=== PATIENT | male | born 1950 | race Caucasian/White ===

== ENCOUNTER 2017-05-31 20:15 | Inpatient (IN) | payer OTHER, MEDICARE ==
--- NOTE | 2017-05-31 20:44 | PDOC ---
Rapid Medical Evaluation Time Seen by Provider: 05/31/17 20:27 Medical Evaluation: Allergies Allergy/AdvReac Type Severity Reaction Status Date / Time clopidogrel [From Plavix] Allergy Verified 05/31/17 20:39 05/31/17 20:39 The patient presents with PMH of nephrectomy d/t tumor, diabetes, CVA, bypass who presents with a chief complaint of lethargy and not responding well today. Sugar measurement 48 at home; given candy and juice, went to 118. No complaints at this time. Denies fevers, chills, n/v/d. I have performed a brief in-person evaluation of this patient; Pertinent physical exam findings: ambulatory, in no respiratory distress. AAO x3. I have ordered the following: CBC, CMP, Trop, EKG, UA, UC The patient will proceed to the ED for further evaluation.
--- NOTE | 2017-05-31 21:17 | PDOC ---
History of Present Illness - General Chief Complaint: Blood Sugar Problem Stated Complaint: Sugar Problem Time Seen by Provider: 05/31/17 20:27 - History of Present Illness Initial Comments: 66 year old male with PMH of nephrectomy (for tumor removal complicated with LLL pleural effusion in 01/2017) , diabetes (on insulin and Repaglinide), CVA ( 2011), CABG (triple bypass early ) presenting with acute episode of objective hypoglycemia (measured by at 48) with lethargy and diaphoresis. When his gave him an orange he started to feel better and became ore responsive. Denies syncope, LOC, head trauma, or other symptoms. On our exam, he wanted to go home and felt completely better. Denies recent sick symptoms, fevers chills, nausea, vomiting, diarrhea, chest pain, or congestion. 05/31/17 21:17 Past History - Past Medical History Allergies/Adverse Reactions: Allergies Allergy/AdvReac Type Severity Reaction Status Date / Time clopidogrel [From Plavix] Allergy Verified 05/31/17 20:39 Home Medications: Ambulatory Orders Apixaban [Eliquis -] 2.5 mg PO BID 05/31/17 Atorvastatin Ca [Lipitor] 20 mg PO HS 05/31/17 Escitalopram Oxalate [Lexapro -] 20 mg PO DAILY 05/31/17 Furosemide [Lasix -] 40 mg PO BID 05/31/17 Gabapentin [Neurontin -] 100 mg PO Q8H 05/31/17 Insulin Glargine,Hum.rec.anlog [Basaglar Kwikpen U-100] 100 unit SQ HS 05/31/17 Lisinopril [Zestril] 2.5 mg PO DAILY 05/31/17 Metoprolol Tartrate [Lopressor -] 25 mg PO BID 05/31/17 Repaglinide [Prandin -] 1 mg PO TIDCM 05/31/17 Cardiac Disorders: Yes (sextupil bypass 2001) CVA: Yes (2011) COPD: No Diabetes: Yes Disorders: Yes (left kidney removed 01/2017) HTN: Yes Hypercholesterolemia: Yes - Surgical History Cardiac Surgery: Yes - Immunization History Immunization Up to Date: Yes - Suicide/Smoking/Psychosocial Hx Smoking History: Never smoked Have you smoked in the past 12 months: No Information on smoking cessation initiated: No Hx Alcohol Use: No Drug/Substance Use Hx: No Substance Use Type: None *Physical Exam - Vital Signs Last Vital Signs Temp Pulse Resp BP Pulse Ox 97.4 F L 67 18 125/71 98 05/31/17 20:38 05/31/17 20:38 05/31/17 20:38 05/31/17 20:38 05/31/17 20:38 ED Treatment Course - LABORATORY CBC & Chemistry Diagram: 05/31/17 21:17 05/31/17 21:17 - RADIOLOGY Radiology Studies Ordered: Category Date Time Status CHEST PA & LAT [RAD] Stat Radiology 05/31/17 21:10 Ordered Medical Decision Making - Medical Decision Making 66 malcolm old male on oral antihyperglcymic (sulfonylurea type of activity) and long acting insulin with recent left nephrectomy presenting with episode of symptomatic hypoglycemia to 48 that resolved with orange juice. Patient asymptomatic in our ED and wants to go home but given his sulfonylurea ingestion and new renal injury (creatinine 1.9 here) in the setting of new nehprectomy, this patient will need to be admitted for observation of glucose levels. Patient signed out to VICKIE Flores in stable condition. 05/31/17 23:19 *DC/Admit/Observation/Transfer Diagnosis at time of Disposition: MEL (acute kidney injury), Hypoglycemia - Discharge Dispostion Admit: Yes - Referrals Referrals: ON STAFF,NOT [Primary Care Provider] - - Patient Instructions - Post Discharge Activity
[2017-05-31 21:41] LABS: BASO % 0.2 % (0-2.0); EOS % 0.6 % (0-4.5); HEMATOCRIT 34.7 % (35.4-49); HEMOGLOBIN 11.5 GM/dL (11.7-16.9); MCH 26.8 pg (25.7-33.7); MCHC 33.1 g/dl (32.0-35.9); MEAN PLT VOLUME 7.5 fl (7.5-11.1); MONO % 5.2 % (3.8-10.2); PLATELET COUNT 242 K/MM3 (134-434); RBC 4.29 M/mm3 (4.00-5.60); WHITE BLOOD COUNT 10.7 K/mm3 (4.0-10.0)
--- NOTE | 2017-05-31 22:11 | PDOC ---
Attending Attestation - Resident Resident Name: AlyssaVeronica - ED Attending Attestation I have performed the following: I have examined & evaluated the patient, The case was reviewed & discussed with the resident, I agree w/resident's findings & plan, Exceptions are as noted - HPI HPI: 05/31/17 22:11 66-year-old male with history of left-sided nephrectomy undergoing a tumor workup, hypertension, diabetes on glargine and replaganide, stroke presents with hypoglycemia. The patient reports that he was usual state of health. The patient's sister was out of the house and went to contact the patient and noted that he was altered, lethargic and clammy. He denied chest pain shortness of breath at that time the sister obtain a fingerstick which noted a glucose of 48 and the patient was given orange with improvement of symptoms. Patient currently denies any symptoms other than feeling sluggish. Denies fevers, chills , cough, vomiting, diarrhea, dysuria. - Physicial Exam PE: 05/31/17 22:12 GENERAL: Awake, alert, and fully oriented, in no acute distress. HEAD: No signs of trauma EYES: PERRLA, EOMI, sclera anicteric, conjunctiva clear ENT: Auricles normal inspection, hearing grossly normal, nares patent NECK: Normal ROM, supple, no lymphadenopathy, JVD, or masses LUNGS: Breath sounds equal, clear to auscultation bilaterally. No wheezes, and no crackles HEART: Regular rate and rhythm, normal S1 and S2, no murmurs, rubs or gallops ABDOMEN: Soft, nontender, No guarding, no rebound. No masses EXTREMITIES: Normal range of motion, no edema. NEUROLOGICAL: Cranial nerves II through XII grossly intact. Normal speech SKIN: Warm, Dry, normal turgor, no rashes or lesions noted. - Medical Decision Making 05/31/17 22:13 Vital Signs Temp Pulse Resp BP Pulse Ox 97.4 F L 67 18 125/71 98 05/31/17 20:38 05/31/17 20:38 05/31/17 20:38 05/31/17 20:38 05/31/17 20:38 I suspect the symptoms are likely secondary to hypoglycemia. Given that the patient is on a long-acting glucose medication, we'll observe the patient. Though I have low suspicion for acute anginal equivalent, we'll send troponin and EKG. Alternate, the patient is at the hospital admitted given hypoglycemia
[2017-05-31 22:30] LABS: URINE APPEARANCE CLEAR; URINE BILIRUBIN NEGATIVE (<2.0 mg/dL); URINE BLOOD NEGATIVE (NEGATIVE); URINE COLOR LTYELLOW; URINE GLUCOSE (UA) NEGATIVE (NEGATIVE); URINE KETONE NEGATIVE (NEGATIVE); URINE LEUK ESTERASE NEGATIVE (NEGATIVE); URINE NITRITE NEGATIVE (NEGATIVE); URINE PROTEIN NEGATIVE (NEGATIVE); URINE UROBILINOGEN NEGATIVE mg/dL (0.2-1.0)
[2017-05-31 22:48] LABS: ALK PHOS 122 U/L (45-117); ANION GAP 7 (8-16); BILIRUBIN,TOTAL 0.2 mg/dL (0.2-1.0); BLOOD UREA NITROGEN 71 mg/dL (7-18); CHLORIDE 104 mmol/L (98-107); CO2 26 mmol/L (21-32); CREATININE 1.9 mg/dL (0.7-1.3); GLUCOSE,RANDOM 85 mg/dL (74-106); POTASSIUM 4.8 mmol/L (3.5-5.1); SGOT/AST 77 U/L (15-37); SGPT/ALT 105 U/L (12-78); SODIUM 137 mmol/L (136-145); TOT PROT 8.9 g/dl (6.4-8.2)
--- NOTE | 2017-05-31 23:54 | HP ---
CHIEF COMPLAINT: Hypoglycemia PCP: Doctor Not on Staff HISTORY OF PRESENT ILLNESS: This is a 66 y/o man with a past medical history of HTN, HLD, DM (glargine, replaganide), CVA (2011), CAD s/p Six vessel Bypass (O2), s/p L Nephrectomy (2016, tumor work-up). Who presents to the ED with a hypoglycemic episode FS 48. Patient reports not "feeling right", cold, clammy, lethargic. He reports that his sister checked his blood sugar- 48, he was given orange juice and crackers. The patient states" I took my meds in the morning and afternoon, but I don't check my sugar". Patient denies fever, cough, CEJA, SOB, CP, palpitations, AP, N/V /D, constipation, dysuria. ER course was notable for: (1) Serum Glucose 85 (2) Cr 1.9 (3) Recent Travel: None PAST MEDICAL HISTORY: See HPI PAST SURGICAL HISTORY: See HPI Social History: Smoking: Never Alcohol: Social Drugs: Denies Lives alone- employed Family History: Allergies clopidogrel [From Plavix] Allergy (Verified 05/31/17 20:39) HOME MEDICATIONS: Home Medications Medication Instructions Recorded Apixaban [Eliquis -] 2.5 mg PO BID 05/31/17 Atorvastatin Ca [Lipitor] 20 mg PO HS 05/31/17 Escitalopram Oxalate [Lexapro -] 20 mg PO DAILY 05/31/17 Furosemide [Lasix -] 40 mg PO BID 05/31/17 Gabapentin [Neurontin -] 100 mg PO Q8H 05/31/17 Insulin Glargine,Hum.rec.anlog 100 unit SQ HS 05/31/17 [Basaglar Kwikpen U-100] Lisinopril [Zestril] 2.5 mg PO DAILY 05/31/17 Metoprolol Tartrate [Lopressor -] 25 mg PO BID 05/31/17 Repaglinide [Prandin -] 1 mg PO TIDCM 05/31/17 REVIEW OF SYSTEMS CONSTITUTIONAL: chills, generalized weakness, malaise Absent: fever, diaphoresis, loss of appetite, weight change HEENT: Absent: rhinorrhea, nasal congestion, throat pain, throat swelling, difficulty swallowing, mouth swelling, ear pain, eye pain, visual changes CARDIOVASCULAR: lightheadedness Absent: chest pain, syncope, palpitations, irregular heart rate, peripheral edema RESPIRATORY: Absent: cough, shortness of breath, dyspnea with exertion, orthopnea, wheezing, stridor, hemoptysis GASTROINTESTINAL: vomiting Absent: abdominal pain, abdominal distension, nausea, diarrhea, constipation, melena, hematochezia GENITOURINARY: Absent: dysuria, frequency, urgency, hesitancy, hematuria, flank pain, genital pain MUSCULOSKELETAL: Absent: myalgia, arthralgia, joint swelling, back pain, neck pain SKIN: Absent: rash, itching, pallor HEMATOLOGIC/IMMUNOLOGIC: Absent: easy bleeding, easy bruising, lymphadenopathy, frequent infections ENDOCRINE: Absent: unexplained weight gain, unexplained weight loss, heat intolerance, cold intolerance NEUROLOGIC: dizziness, mental status changes Absent: headache, focal weakness or paresthesias, unsteady gait, seizure, bladder or bowel incontinence PSYCHIATRIC: Absent: anxiety, depression, suicidal or homicidal ideation, hallucinations. PHYSICAL EXAMINATION Vital Signs - 24 hr 05/31/17 20:38 Temperature 97.4 F L Pulse Rate 67 Respiratory 18 Rate Blood Pressure 125/71 O2 Sat by Pulse 98 Oximetry (%) GENERAL: Awake, alert, and oriented x2 with some confusion noted, in no acute distress. HEAD: Normal with no signs of trauma. EYES: Pupils equal, round and reactive to light, extraocular movements intact, sclera anicteric, conjunctiva clear. No lid lag. EARS, NOSE, THROAT: Dry mucous membranes. Ears normal, nares patent, oropharynx clear without exudates. NECK: Normal range of motion, supple without lymphadenopathy, JVD, or masses. LUNGS: Breath sounds equal, clear to auscultation bilaterally. No wheezes, and no crackles. No accessory muscle use. HEART: Regular rate and rhythm, normal S1 and S2 without murmur, rub or gallop. ABDOMEN: Obese, Soft, nontender, not distended, normoactive bowel sounds, no guarding, no rebound, no masses. No hepatomegaly or splenomegaly. MUSCULOSKELETAL: Normal range of motion at all joints. No bony deformities or tenderness. No CVA tenderness. UPPER EXTREMITIES: 2+ pulses, warm, well-perfused. No cyanosis. No clubbing. No peripheral edema. LOWER EXTREMITIES: 2+ pulses, warm, well-perfused. No calf tenderness. No peripheral edema. NEUROLOGICAL: Cranial nerves II-XII intact. Normal speech. Gait not observed. PSYCHIATRIC: Cooperative. Good eye contact. Appropriate mood and affect. SKIN: Warm, dry, normal turgor, no rashes or lesions noted, normal capillary refill. Laboratory Results - last 24 hr 05/31/17 05/31/17 05/31/17 21:17 21:17 21:17 WBC 10.7 H RBC 4.29 Hgb 11.5 L Hct 34.7 L MCV 81.0 MCH 26.8 MCHC 33.1 RDW 18.0 H Plt Count 242 MPV 7.5 Neutrophils % 82.0 Lymphocytes % 12.0 Monocytes % 5.2 Eosinophils % 0.6 Basophils % 0.2 Sodium 137 Potassium 4.8 Chloride 104 Carbon Dioxide 26 Anion Gap 7 L BUN 71 H Creatinine 1.9 H Creat Clearance w eGFR 35.76 Random Glucose 85 Calcium 9.0 Total Bilirubin 0.2 AST 77 H ALT 105 H Alkaline Phosphatase 122 H Creatine Kinase 73 Troponin I < 0.02 Total Protein 8.9 H Albumin 4.0 Urine Color Urine Appearance Urine pH Ur Specific Gardiner Urine Protein Urine Glucose (UA) Urine Ketones Urine Blood Urine Nitrite Urine Bilirubin Urine Urobilinogen Ur Leukocyte Esterase 05/31/17 22:20 WBC RBC Hgb Hct MCV MCH MCHC RDW Plt Count MPV Neutrophils % Lymphocytes % Monocytes % Eosinophils % Basophils % Sodium Potassium Chloride Carbon Dioxide Anion Gap BUN Creatinine Creat Clearance w eGFR Random Glucose Calcium Total Bilirubin AST ALT Alkaline Phosphatase Creatine Kinase Troponin I Total Protein Albumin Urine Color Ltyellow Urine Appearance Clear Urine pH 5.0 Ur Specific Gardiner 1.014 Urine Protein Negative Urine Glucose (UA) Negative Urine Ketones Negative Urine Blood Negative Urine Nitrite Negative Urine Bilirubin Negative Urine Urobilinogen Negative Ur Leukocyte Esterase Negative ASSESSMENT/PLAN: This is a 66 y/o man with DM, HTN, HLD, CAD (s/p Sextuple bypass), CVA, s/p L- Nephrectomy (no chemo,/RT, tumor workup). Placed on Observation for Hypoglycemia , MEL. Plan: 1. Hypoglycemia- Observation, BGMs Q4h, D5NS@42ml/hr, Repeat BMP in am, Hold home meds 2. MEL- Likely secondary to Dehydration vs Medication vs ATN, gentle IVF, renal US r/o obstruction, repeat BMP in am, consider Nephrology consult if condition worsens 3. HTN- Stable, monitor BP, Continue Lopressor with parameters, Hold Valsartan 2 /2 MEL 4. HLD- Stable, continue Atorvastatin, monitor LFTs 5. CAD- Stable, continue Lopressor 6. CVA- Stable, continue Eliquis, Fall Precautions 7. FEN- D5NS@42ml/hr, Replete lytes prn, Low Na, Diabetic Diet 8. DVT ppx- SCDs, Eliquis Code Status: Full Code Dispo: Observation Problem List - Problem (1) Hypoglycemia Code(s): E16.2 - HYPOGLYCEMIA, UNSPECIFIED (2) MEL (acute kidney injury) Code(s): N17.9 - ACUTE KIDNEY FAILURE, UNSPECIFIED (3) HTN (hypertension) Code(s): I10 - ESSENTIAL (PRIMARY) HYPERTENSION (4) CVA (cerebral vascular accident) Code(s): I63.9 - CEREBRAL INFARCTION, UNSPECIFIED (5) CAD (coronary artery disease) of bypass graft Code(s): I25.810 - ATHEROSCLEROSIS OF CABG W/O ANGINA PECTORIS (6) HLD (hyperlipidemia) Code(s): E78.5 - HYPERLIPIDEMIA, UNSPECIFIED (7) DVT prophylaxis Code(s): JNG1356 - Visit type - Emergency Visit Emergency Visit: Yes ED Registration Date: 05/31/17 Care time: The patient presented to the Emergency Department on the above date and was hospitalized for further evaluation of their emergent condition. - New Patient This patient is new to me today: Yes Date on this admission: 05/31/17 - Critical Care Critical Care patient: No Hospitalist Screening - Colonoscopy Questionnaire Colonoscopy Questionnaire: Colonoscopy Questionnaire - Patient: 50 - 75 years old and never had a screening colonoscopy: No History of colon or rectal polyps, or CA: No History of IBD, Crohn's disease or UC: No History of abdominal radiation therapy as a child: No - Relative: 1 with colon or rectal CA, or polyps at age 60 or younger: No Colon or rectal CA diagnosed at age 45 or younger: No Multiple relatives with colon or rectal CA: No - Outcome: Screening Result: Negative Screen
[2017-06-01] MEDS: APIXABAN 2.5 MG TABLET PO SCH ×3 (00:15→21:32)
[2017-06-01 03:25] VITALS: BMI 30.3
[2017-06-01 08:03] LABS: BASO % 0.8 % (0-2.0); EOS % 2.9 % (0-4.5); HEMATOCRIT 32.5 % (35.4-49); HEMOGLOBIN 10.6 GM/dL (11.7-16.9); LYMPH % 22.6 % (8-40); MCH 26.7 pg (25.7-33.7); MCHC 32.8 g/dl (32.0-35.9); MEAN CELL VOLUME 81.5 fl (80-96); MEAN PLT VOLUME 7.4 fl (7.5-11.1); MONO % 8.5 % (3.8-10.2); NEUT % 65.2 % (42.8-82.8); PLATELET COUNT 203 K/MM3 (134-434); RBC 3.99 M/mm3 (4.00-5.60); RDW 17.9 % (11.9-15.9); WHITE BLOOD COUNT 7.5 K/mm3 (4.0-10.0)
[2017-06-01 08:16] LABS: ANION GAP 9 (8-16); BLOOD UREA NITROGEN 67 mg/dL (7-18); CALCIUM 8.6 mg/dL (8.5-10.1); CHLORIDE 105 mmol/L (98-107); CO2 26 mmol/L (21-32); GLUCOSE,RANDOM 85 mg/dL (74-106); POTASSIUM 4.3 mmol/L (3.5-5.1); SODIUM 140 mmol/L (136-145)
[2017-06-01] MEDS ORDERED: DEXTROSE 5%-NORMAL SALINE 1,000 ML IV SCH (08:30)
[2017-06-01] MEDS ORDERED: ESCITALOPRAM OXALATE 10 MG TABLET (FP) ONE (11:18)
[2017-06-01] MEDS ORDERED: PT OWN MED DRAWER 7, Y5N ONE ×2 (11:20→19:49)
[2017-06-01] MEDS: METOPROLOL TARTRATE 25 MG TABLET (FP) PO SCH ×2 (11:23→21:32)
[2017-06-01] MEDS: ESCITALOPRAM OXALATE 20 MG TABLET (FP) PO SCH (11:23)
--- NOTE | 2017-06-01 16:05 | PN ---
Physical Exam: SUBJECTIVE: Patient seen and examined Patient is c/o having chest pain on and off for 3 months now. OBJECTIVE: Vital Signs Temperature 98.6 F 06/01/17 15:52 Pulse Rate 80 06/01/17 15:52 Respiratory Rate 19 06/01/17 15:52 Blood Pressure 130/72 06/01/17 15:52 O2 Sat by Pulse Oximetry (%) 100 06/01/17 03:07 GENERAL: The patient is awake, alert, and fully oriented, in no acute distress. HEAD: Normal with no signs of trauma. EYES: PERRL, extraocular movements intact, sclera anicteric, conjunctiva clear. ENT: Ears normal, oropharynx clear without exudates, moist mucous membranes. NECK: Trachea midline, full range of motion, supple. LUNGS: Breath sounds equal, clear to auscultation bilaterally, no wheezes, no crackles, no accessory muscle use. HEART: Regular rate and rhythm, S1, S2 without murmur, rub or gallop. ABDOMEN: Soft, nontender, nondistended, normoactive bowel sounds, no guarding, no rebound, no hepatosplenomegaly, no masses. EXTREMITIES: 2+ pulses, warm, well-perfused, no edema. NEUROLOGICAL: Cranial nerves II through XII grossly intact. Normal speech, gait not observed. PSYCH: Normal mood, normal affect. SKIN: Warm, dry, normal turgor, no rashes or lesions noted CBCD WBC 7.5 K/mm3 (4.0-10.0) 06/01/17 07:28 RBC 3.99 M/mm3 (4.00-5.60) L 06/01/17 07:28 Hgb 10.6 GM/dL (11.7-16.9) L 06/01/17 07:28 Hct 32.5 % (35.4-49) L 06/01/17 07:28 MCV 81.5 fl (80-96) 06/01/17 07:28 MCHC 32.8 g/dl (32.0-35.9) 06/01/17 07:28 RDW 17.9 % (11.9-15.9) H 06/01/17 07:28 Plt Count 203 K/MM3 (134-434) 06/01/17 07:28 MPV 7.4 fl (7.5-11.1) L 06/01/17 07:28 CMP Sodium 140 mmol/L (136-145) 06/01/17 07:28 Potassium 4.3 mmol/L (3.5-5.1) 06/01/17 07:28 Chloride 105 mmol/L (98-107) 06/01/17 07:28 Carbon Dioxide 26 mmol/L (21-32) 06/01/17 07:28 Anion Gap 9 (8-16) 06/01/17 07:28 BUN 67 mg/dL (7-18) H 06/01/17 07:28 Creatinine 2.0 mg/dL (0.7-1.3) H 06/01/17 07:28 Creat Clearance w eGFR 35.76 (>60) 05/31/17 21:17 Random Glucose 85 mg/dL (74-106) 06/01/17 07:28 Calcium 8.6 mg/dL (8.5-10.1) 06/01/17 07:28 Total Bilirubin 0.2 mg/dL (0.2-1.0) 05/31/17 21:17 AST 77 U/L (15-37) H 05/31/17 21:17 ALT 105 U/L (12-78) H 05/31/17 21:17 Alkaline Phosphatase 122 U/L (45-117) H 05/31/17 21:17 Total Protein 8.9 g/dl (6.4-8.2) H 05/31/17 21:17 Albumin 4.0 g/dl (3.4-5.0) 05/31/17 21:17 CARDIAC ENZYMES Creatine Kinase 73 IU/L (39-308) 05/31/17 21:17 Troponin I < 0.02 ng/ml (0.00-0.05) 06/01/17 07:28 Current Medications Generic Name Dose Route Start Last Admin Trade Name Freq PRN Reason Stop Dose Admin Apixaban 2.5 mg 06/01/17 00:00 06/01/17 11:22 Eliquis - PO 2.5 mg BID MARY Administration Atorvastatin Calcium 20 mg 06/01/17 22:00 Lipitor - PO HS [facility] Escitalopram Oxalate 20 mg 06/01/17 10:00 06/01/17 11:23 Lexapro - PO 20 mg DAILY MARY Administration Dextrose/Sodium Chloride 1,000 mls @ 42 mls/hr 06/01/17 08:30 06/01/17 11:06 D5-Ns - IV 42 mls/hr ASDIR MARY Administration Metoprolol Tartrate 25 mg 06/01/17 10:00 06/01/17 11:23 Lopressor - PO 25 mg BID MARY Administration Home Medications Medication Instructions Recorded Apixaban [Eliquis -] 2.5 mg PO BID 05/31/17 Atorvastatin Ca [Lipitor] 20 mg PO HS 05/31/17 Escitalopram Oxalate [Lexapro -] 20 mg PO DAILY 05/31/17 Furosemide [Lasix -] 40 mg PO BID 05/31/17 Gabapentin [Neurontin -] 100 mg PO Q8H 05/31/17 Insulin Glargine,Hum.rec.anlog 100 unit SQ HS 05/31/17 [Basaglar Kwikpen U-100] Lisinopril [Zestril] 2.5 mg PO DAILY 05/31/17 Metoprolol Tartrate [Lopressor -] 25 mg PO BID 05/31/17 Repaglinide [Prandin -] 1 mg PO TIDCM 05/31/17 A/P: This is a 66 y/o man with hx of DM, HTN, HLD, CAD (s/p Sextuple bypass), CVA, s/ p L- Nephrectomy (no chemo,/RT, tumor workup). presented with MEL and hypoglycemia . # Acute chest pain r/o ACs , consulted , ordered EKG, CE q6h x 2 sets, transferring patient to Tele. 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 will hold off on Lisinopril and Lasix for now, renal consult # HTN- on metoprolol continue, lasix and lisinopril on hold # CXR positive for loculation will repeat with right sided pleural effusion # HLD- continue Atorvastatin # CAD continue Lopressor # Hx of CVA on Eliquis continue # Diabetic Diet will start him on 10unit Levemir at night with sliding scale DVT ppx- SCDs, Eliquis Code Status: Full Code Tx to Tele to monitor since having cp on and off. HIS MDS: Dr.Ira العلي telegrapher agent [phone] () Dr.Satjit Jonas; Compensation Associate [phone] Dr.maria richmond Endocrine [phone] Dr.Kensley Smith ; oncologist [phone] Dr. sarah Schwartz nephrolgist in [facility] Visit type - Emergency Visit Emergency Visit: Yes ED Registration Date: 05/31/17 Care time: The patient presented to the Emergency Department on the above date and was hospitalized for further evaluation of their emergent condition. - New Patient This patient is new to me today: Yes Date on this admission: 06/01/17 - Critical Care Critical Care patient: No - Discharge Referral Referred to [facility] Med P.C.: No
[2017-06-01] MEDS ORDERED: INSULIN (NOVOLOG) ASPART 100 UNITS/ML 10ML VIAL ONE (16:26)
[2017-06-01] MEDS ORDERED: SODIUM CHLORIDE 0.45% 1,000 ML IV SCH (16:30)
[2017-06-01] MEDS: INSULIN SLIDING SCALE (NOVOLOG) 1 VIAL SQ SCH (16:33)
--- NOTE | 2017-06-01 17:34 | EKG ---
Test Reason : Blood Pressure : / mmHG Vent. Rate : 079 BPM Atrial Rate : 079 BPM P-R Int : 214 ms QRS Dur : 092 ms QT Int : 416 ms P-R-T Axes : 071 -61 063 degrees QTc Int : 477 ms SINUS RHYTHM WITH 1ST DEGREE A-V BLOCK LEFT ANTERIOR FASCICULAR BLOCK CANNOT RULE OUT INFERIOR INFARCT (MASKED BY FASCICULAR BLOCK?) , AGE UNDETERMINED ABNORMAL ECG WHEN COMPARED WITH ECG OF 31-MAY-2017 22:06, NO SIGNIFICANT CHANGE WAS FOUND Confirmed by MD HATTIE, WENDY ([id number]) on 06/01/2017 5:34:15 PM Referred By: Mitzi CRAMER Confirmed By:WENDY KUHN MD
--- NOTE | 2017-06-01 17:54 | EKG ---
Test Reason : Blood Pressure : / mmHG Vent. Rate : 066 BPM Atrial Rate : 066 BPM P-R Int : 200 ms QRS Dur : 092 ms QT Int : 468 ms P-R-T Axes : 067 -76 072 degrees QTc Int : 490 ms NORMAL SINUS RHYTHM LEFT ANTERIOR FASCICULAR BLOCK Possible inferior infarct PROLONGED QT ABNORMAL ECG NO PREVIOUS ECGS AVAILABLE Confirmed by MD HATTIE, WENDY ([id number]) on 06/01/2017 5:54:33 PM Referred By: Confirmed By:WENDY KUHN MD
[2017-06-01] MEDS: INSULIN DETEMIR 100 UNITS/ML MDV SQ SCH (21:32)
[2017-06-01] MEDS: ATORVASTATIN CA 20 MG TABLET (FP) PO SCH (21:32)
--- NOTE | 2017-06-01 21:35 | CONSULT ---
Consult Consult Specialty:: Nephrology Reason for Consultation:: CKD - History of Present Illness Chief Complaint: presented with hypoglycemia History of Present Illness: Pt is a 66 year old male with pmhx of CKD, nephrectomy, renal cancer, CVA in 2012, CABG, CAD, and DM who presented to the ER with and episode of hypoglycemia. I was called to evaluate him for elevated creatinine. He is a poor historian. He denies dysuria or hematuria. He says that he follows with an [facility] however has not seen a product safety head. He denies shortness of breath or palpitations. He denies fevers or chills. 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 Cardio/Vascular: Yes: HTN Renal/: Yes: Renal Inusuff Endocrine: Yes: Diabetes Mellitus - Past Surgical History Additional Surgical History: nephrectomy - Alcohol/Substance Use Hx Alcohol Use: No - Smoking History Smoking history: Never smoked Have you smoked in the past 12 months: No Home Medications - Allergies Allergies/Adverse Reactions: Allergies Allergy/AdvReac Type Severity Reaction Status Date / Time clopidogrel [From Plavix] Allergy Verified 05/31/17 20:39 - Home Medications Home Medications: Ambulatory Orders Apixaban [Eliquis -] 2.5 mg PO BID 05/31/17 Atorvastatin Ca [Lipitor] 20 mg PO HS 05/31/17 Escitalopram Oxalate [Lexapro -] 20 mg PO DAILY 05/31/17 Furosemide [Lasix -] 40 mg PO BID 05/31/17 Gabapentin [Neurontin -] 100 mg PO Q8H 05/31/17 Insulin Glargine,Hum.rec.anlog [Basaglar Kwikpen U-100] 100 unit SQ HS 05/31/17 Lisinopril [Zestril] 2.5 mg PO DAILY 05/31/17 Metoprolol Tartrate [Lopressor -] 25 mg PO BID 05/31/17 Repaglinide [Prandin -] 1 mg PO TIDCM 05/31/17 Family Disease History - Family Disease History Family History: Denies Review of Systems - Review of Systems Constitutional: reports: No Symptoms Eyes: reports: No Symptoms HENT: reports: No Symptoms Neck: reports: No Symptoms Cardiovascular: reports: No Symptoms Respiratory: reports: No Symptoms Gastrointestinal: reports: No Symptoms Genitourinary: reports: No Symptoms Musculoskeletal: reports: No Symptoms Integumentary: reports: No Symptoms Neurological: reports: No Symptoms Endocrine: reports: No Symptoms Hematology/Lymphatic: reports: No Symptoms Psychiatric: reports: No Symptoms Physical Exam Vital Signs: Vital Signs Temperature 98.6 F 06/01/17 15:52 Pulse Rate 82 06/01/17 16:09 Respiratory Rate 20 06/01/17 16:09 Blood Pressure 124/66 06/01/17 16:09 O2 Sat by Pulse Oximetry (%) 95 06/01/17 08:00 Constitutional: Yes: Calm Eyes: Yes: Conjunctiva Clear HENT: Yes: Atraumatic Neck: Yes: Supple Cardiovascular: Yes: S1, S2 Respiratory: Yes: CTA Bilaterally Gastrointestinal: Yes: Soft Renal/: Yes: WNL Musculoskeletal: Yes: WNL Edema: Yes Edema: LLE: Trace, RLE: Trace Integumentary: Yes: WNL Neurological: Yes: Oriented, Pre-Existing Deficit Labs: CBC, BMP 06/01/17 07:28 06/01/17 07:28 Laboratory Tests 05/31/17 05/31/17 05/31/17 21:17 21:17 22:20 WBC 10.7 H Hgb Plt Count 242 Sodium Potassium BUN Creatinine 1.9 H Urine Protein Negative Urine Blood Negative 06/01/17 06/01/17 07:28 07:28 WBC 7.5 Hgb 10.6 L Plt Count 203 Sodium 140 Potassium 4.3 BUN 67 H Creatinine 2.0 H Urine Protein Urine Blood Imaging - Results Chest X-ray: Report Reviewed Problem List - Problems (1) CKD (chronic kidney disease) Code(s): N18.9 - CHRONIC KIDNEY DISEASE, UNSPECIFIED (2) MEL (acute kidney injury) Code(s): N17.9 - ACUTE KIDNEY FAILURE, UNSPECIFIED (3) CAD (coronary artery disease) of bypass graft Code(s): I25.810 - ATHEROSCLEROSIS OF CABG W/O ANGINA PECTORIS (4) CVA (cerebral vascular accident) Code(s): I63.9 - CEREBRAL INFARCTION, UNSPECIFIED (5) DVT prophylaxis Code(s): [id number] - (6) HTN (hypertension) Code(s): I10 - ESSENTIAL (PRIMARY) HYPERTENSION Assessment/Plan Current Medications Generic Name Dose Route Start Last Admin Trade Name Freq PRN Reason Stop Dose Admin Apixaban 2.5 mg 06/01/17 00:00 06/01/17 21:32 Eliquis - PO 2.5 mg BID MARY Administration Atorvastatin Calcium 20 mg 06/01/17 22:00 06/01/17 21:32 Lipitor - PO 20 mg HS MARY Administration Escitalopram Oxalate 20 mg 06/01/17 10:00 06/01/17 11:23 Lexapro - PO 20 mg DAILY MARY Administration Sodium Chloride 1,000 mls @ 42 mls/hr 06/01/17 16:30 06/01/17 16:32 1/2 Normal Saline IV 06/02/17 16:19 42 mls/hr ASDIR MARY Administration Insulin Aspart 1 vial 06/01/17 16:30 06/01/17 16:33 Novolog Vial Sliding Scale - SQ 6 unit TIDAC MARY Administration Protocol Insulin Detemir 10 units 06/01/17 22:00 06/01/17 21:32 Levemir Vial SQ Not Given HS [facility] Metoprolol Tartrate 25 mg 06/01/17 10:00 06/01/17 21:32 Lopressor - PO 25 mg BID MARY Administration Impression 1. 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 MEL possibly from dehydration if branch office manager is elevated from baseline 3. DM 4. hypoglycemia 5. hx CVA 6. HLD Plan - follow up renal ultrasound - check urine lytes and branch office manager - repeat labs in am - obtain outpt records - monitor blood sugar Dr Zarate
[2017-06-02 02:55] LABS: URINE APPEARANCE CLEAR; URINE BILIRUBIN NEGATIVE (<2.0 mg/dL); URINE BLOOD NEGATIVE (NEGATIVE); URINE COLOR LTYELLOW; URINE GLUCOSE (UA) NEGATIVE (NEGATIVE); URINE KETONE NEGATIVE (NEGATIVE); URINE LEUK ESTERASE NEGATIVE (NEGATIVE); URINE NITRITE NEGATIVE (NEGATIVE); URINE PROTEIN NEGATIVE (NEGATIVE); URINE UROBILINOGEN NEGATIVE mg/dL (0.2-1.0)
[2017-06-02] MEDS: INSULIN SLIDING SCALE (NOVOLOG) 1 VIAL SQ SCH ×3 (06:07→19:12)
--- NOTE | 2017-06-02 07:06 | CON.CARD ---
Consult Consult Specialty:: cardiology Reason for Consultation:: Hx OK; recent chest discomfort - History of Present Illness History of Present Illness: Mr. Wang is a 66 yr old white man with PMH of nephrectomy ("kidney ablation"), ? renal tumor ("they are discussing chemoterapy with me"),, diabetes, CVA ( about 13 yrs ago; ?no residual defects), CAD (hx if "OK"-->6 coronary stents, followed by CABG 13 yrs ago at [facility]), sleep apnea (noncompliant to CPAP), obesity, sedentary lifestyle,who presents with a chief complaint of lethargy and not responding well today. Sugar measurement 48 at home; given candy and juice, went to 118. No complaints at this time. Denies fevers, chills, n/v/d. Pt states that, a few months ago, he bagan having a 4/10 central chest ache; it occurred twice on awakening, and lasted a few minutes. When he walks, he feels "deconditioned" (easily dyspneic; ?accompanying chest ache(). Former cigarettes (quit many years ago). Several glasses of wine daily for many years (quit a few months ago). 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: Yes: CVA Cardio/Vascular: Yes: HTN Pulmonary: No: Asthma, COPD Renal/: Yes: Renal Inusuff Psych: Yes: Anxiety Endocrine: Yes: Diabetes Mellitus - Past Surgical History Additional Surgical History: nephrectomy - Alcohol/Substance Use Hx Alcohol Use: No - Smoking History Smoking history: Never smoked Have you smoked in the past 12 months: No Home Medications - Allergies Allergies/Adverse Reactions: Allergies Allergy/AdvReac Type Severity Reaction Status Date / Time clopidogrel [From Plavix] Allergy Verified 05/31/17 20:39 - Home Medications Home Medications: Ambulatory Orders Apixaban [Eliquis -] 2.5 mg PO BID 05/31/17 Atorvastatin Ca [Lipitor] 20 mg PO HS 05/31/17 Escitalopram Oxalate [Lexapro -] 20 mg PO DAILY 05/31/17 Furosemide [Lasix -] 40 mg PO BID 05/31/17 Gabapentin [Neurontin -] 100 mg PO Q8H 05/31/17 Insulin Glargine,Hum.rec.anlog [Carla Cheema U-100] 100 unit SQ HS 05/31/17 Lisinopril [Zestril] 2.5 mg PO DAILY 05/31/17 Metoprolol Tartrate [Lopressor -] 25 mg PO BID 05/31/17 Repaglinide [Prandin -] 1 mg PO TIDCM 05/31/17 Review of Systems - Review of Systems Constitutional: reports: No Symptoms Eyes: reports: No Symptoms HENT: reports: No Symptoms Neck: reports: No Symptoms Cardiovascular: reports: Chest Pain, Shortness of Breath Respiratory: reports: SOB on Exertion Genitourinary: reports: Other (hx renal "ablation" and "tumor") Breasts: reports: No Symptoms Reported Musculoskeletal: reports: Muscle Weakness Integumentary: reports: No Symptoms Neurological: reports: No Symptoms Hematology/Lymphatic: reports: No Symptoms Psychiatric: reports: Altered Sleep Pattern (sleep apnea) - Risk Factors Known Risk Factors: Yes: Age, Diabetes Mellitus, Gender, Hypercholesterolemia, Hypertension, Physical Inactivity, Prior OK /Emb Stroke, Smoking (former), Other (sleep apnea) Vital Signs: Vital Signs Temperature 98.5 F 06/02/17 05:00 Pulse Rate 72 06/02/17 05:00 Respiratory Rate 18 06/02/17 05:00 Blood Pressure 103/62 06/02/17 05:00 O2 Sat by Pulse Oximetry (%) 94 L 06/01/17 21:00 Constitutional: Yes: Calm Eyes: Yes: WNL HENT: Yes: WNL Neck: Yes: WNL Respiratory: Yes: Regular Gastrointestinal: Yes: Soft, Abdomen, Obese Renal/: No: Anuria Cardiovascular: Yes: Bradycardia JVD: No Carotid Bruit: No PMI: Non-Displaced Heart Sounds: Yes: S1 (split) Murmur: Yes: Systolic Murmur, Grade 1 Musculoskeletal: Yes: Muscle Weakness Extremities: Yes: Cool Edema: No Peripheral Pulses WNL: Yes Integumentary: Yes: WNL Neurological: Yes: WNL Psychiatric: Yes: WNL - Other Data Labs, Other Data: CBC, BMP 06/01/17 07:28 Troponin, BNP 06/01/17 06/01/17 07:28 18:35 Troponin I < 0.02 < 0.02 Troponin, BNP 06/01/17 06/01/17 07:28 18:35 Troponin I < 0.02 < 0.02 Imaging - Results Chest X-ray: Image Reviewed (no acute pathology) EKG: Image Reviewed (NSR: 1st degree AVB; LAFB; ? old IW OK) Problem List - Problems (1) Diabetes Code(s): E11.9 - TYPE 2 DIABETES MELLITUS WITHOUT COMPLICATIONS (2) CAD (coronary artery disease) of bypass graft Assessment/Plan: Hx OK-->6 cor stents, followed by CABG about 13 yrs ago. Since then, he has never had a stress test or angiogram; he thought that CABG would fix the heart for life. He used to walk [address] [facility] to his [place] [facility] [place] [facility] most working days, and felt very well. However, he stopped this more than 5 yrs ago, and has been quite sedentary since. TNI serially. ECHO for LVEF, wall motion. Stress MIBI (treadmill as stress agent). F/u TSH, lipids. Code(s): I25.810 - ATHEROSCLEROSIS OF CABG W/O ANGINA PECTORIS (3) CKD (chronic kidney disease) Code(s): N18.9 - CHRONIC KIDNEY DISEASE, UNSPECIFIED (4) CVA (cerebral vascular accident) Code(s): I63.9 - CEREBRAL INFARCTION, UNSPECIFIED (5) HLD (hyperlipidemia) Assessment/Plan: on statin Code(s): E78.5 - HYPERLIPIDEMIA, UNSPECIFIED (6) HTN (hypertension) Assessment/Plan: hold metoprolol. Problematic giving ACEI or ARB (renal dysfunction). Code(s): I10 - ESSENTIAL (PRIMARY) HYPERTENSION (7) Hypoglycemia Code(s): E16.2 - HYPOGLYCEMIA, UNSPECIFIED
[2017-06-02 07:31] LABS: ALBUMIN 3.4 g/dl (3.4-5.0); ANION GAP 6 (8-16); BLOOD UREA NITROGEN 55 mg/dL (7-18); CALCIUM 8.5 mg/dL (8.5-10.1); CHLORIDE 108 mmol/L (98-107); CO2 23 mmol/L (21-32); CREATININE 1.8 mg/dL (0.7-1.3); GLUCOSE,RANDOM 109 mg/dL (74-106); POTASSIUM 4.6 mmol/L (3.5-5.1); SGOT/AST 48 U/L (15-37); SGPT/ALT 87 U/L (12-78); SODIUM 137 mmol/L (136-145)
[2017-06-02 07:33] LABS: ALK PHOS 102 U/L (45-117); BILIRUBIN,TOTAL 0.4 mg/dL (0.2-1.0); TOT PROT 7.7 g/dl (6.4-8.2)
[2017-06-02 08:09] LABS: URINE CREATININE 73.1 mg/dL (20-370)
--- NOTE | 2017-06-02 08:17 | PN ---
Progress Note, Physician Chief Complaint: Pt A&Ox3; no chest pain or dyapnea. History of Present Illness: Mr. Wang is a 66 yr old white man with PMH of ?nephrectomy ("kidney ablation") , ? renal tumor ("they are discussing chemoterapy with me"),, diabetes, CVA ( about 13 yrs ago; ?no residual defects; speaks slowly, at times repetitively), CAD (hx of "CO"in his 40s-->6 coronary stents, followed by CABG 13 yrs ago at [facility]), sleep apnea (noncompliant to CPAP), obesity, sedentary lifestyle, who presents with a chief complaint of lethargy and not responding well today. Sugar measurement 48 at home; given candy and juice, went to 118. No complaints at this time. Denies fevers, chills, n/v/d. Pt states that, a few months ago, he bagan having a 4/10 central chest ache; it occurred twice on awakening, and lasted a few minutes. When he walks, he feels "deconditioned" (easily dyspneic; ?accompanying chest ache). Former cigarettes (quit many years ago). Several glasses of wine daily for many years (quit a few months ago). Father:[place] in his 50s Mother [place] in her 60s. Pt has suffered from "melancholy" in the past; never had psych counseling or antidepressant meds. 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 - Current Medication List Current Medications: Active Medications Apixaban (Eliquis -) 2.5 mg PO BID [facility] Last Admin: 06/01/17 21:32 Dose: 2.5 mg Atorvastatin Calcium (Lipitor -) 20 mg PO HS [facility] Last Admin: 06/01/17 21:32 Dose: 20 mg Escitalopram Oxalate (Lexapro -) 20 mg PO DAILY [facility] Last Admin: 06/01/17 11:23 Dose: 20 mg Sodium Chloride (1/2 Normal Saline) 1,000 mls @ 42 mls/hr IV ASDIR [facility] Stop: 06/02/17 16:19 Last Admin: 06/01/17 16:32 Dose: 42 mls/hr Insulin Aspart (Novolog Vial Sliding Scale -) 1 vial SQ TIDAC [facility] PRN Reason: Protocol Last Admin: 06/02/17 06:07 Dose: Not Given Insulin Detemir (Levemir Vial) 10 units SQ HS [facility] Last Admin: 06/01/17 21:32 Dose: Not Given - Objective Vital Signs: Vital Signs Temperature 98.5 F 06/02/17 05:00 Pulse Rate 72 06/02/17 05:00 Respiratory Rate 18 06/02/17 05:00 Blood Pressure 103/62 06/02/17 05:00 O2 Sat by Pulse Oximetry (%) 94 L 06/01/17 21:00 Constitutional: Yes: Calm, Obese Eyes: Yes: WNL HENT: Yes: WNL Labs: CBC, BMP 06/01/17 07:28 06/02/17 06:30 Problem List - Problems (1) Diabetes Code(s): E11.9 - TYPE 2 DIABETES MELLITUS WITHOUT COMPLICATIONS (2) CAD (coronary artery disease) of bypass graft Assessment/Plan: Hx CO-->6 cor stents, followed by CABG about 13 yrs ago. Since then, he has never had a stress test or angiogram; he thought that CABG would fix the heart for life. He used to walk 4 miles from [facility] to his home in [place] most working days, and felt very well. However, he stopped this more than 5 yrs ago, and has been quite sedentary since. TNI serially (1st 0.02). ECHO for LVEF, wall motion. Stress MIBI (treadmill as stress agent). F/u TSH, lipids. Code(s): I25.810 - ATHEROSCLEROSIS OF CABG W/O ANGINA PECTORIS (3) CKD (chronic kidney disease) Assessment/Plan: workup with resaw carriage operator noted and appreciated. ACEI or ARBS problematic presently. Code(s): N18.9 - CHRONIC KIDNEY DISEASE, UNSPECIFIED (4) CVA (cerebral vascular accident) Assessment/Plan: ?hx CVA; slow, at times repetitive speech, though appropriate. F/u workup. Code(s): I63.9 - CEREBRAL INFARCTION, UNSPECIFIED (5) HLD (hyperlipidemia) Code(s): E78.5 - HYPERLIPIDEMIA, UNSPECIFIED (6) HTN (hypertension) Code(s): I10 - ESSENTIAL (PRIMARY) HYPERTENSION (7) Hypoglycemia Code(s): E16.2 - HYPOGLYCEMIA, UNSPECIFIED (8) Sleep apnea Code(s): G47.30 - SLEEP APNEA, UNSPECIFIED (9) Depression Code(s): F32.9 - MAJOR DEPRESSIVE DISORDER, SINGLE EPISODE, UNSPECIFIED (10) [place] cardiac risk >20% in next 10 years Assessment/Plan: For stress MIBI. Diet, exercise, weight loss discussed in detail. Code(s): Z91.89 - OT PERSONAL RISK FACTORS, NOT ELSEWHERE CLASSIFIED (11) Elevated LFTs Assessment/Plan: alcohol to excess for years; stopped a few months ago. renal dysfunction. CHF. F/u workup. Code(s): R79.89 - OTHER SPECIFIED ABNORMAL FINDINGS OF BLOOD CHEMISTRY (12) CHF (congestive heart failure) Assessment/Plan: Congestive changes on CXR. dyspnea on exertion; chest discomfort. F/u BNP; serial TNIs. ECHO Stress test. Code(s): I50.9 - HEART FAILURE, UNSPECIFIED
[2017-06-02 08:40] LABS: CHOLESTEROL 71 mg/dL (50-200); HDL CHOLESTEROL 28 mg/dL (40-60); LDL CHOLESTEROL (ONLY SJRH) 40 mg/dL (5-100); TRIGLYCERIDES 85 mg/dL (35-160)
[2017-06-02] MEDS: APIXABAN 2.5 MG TABLET PO SCH ×2 (09:24→21:58)
[2017-06-02] MEDS: ESCITALOPRAM OXALATE 20 MG TABLET (FP) PO SCH (09:24)
--- NOTE | 2017-06-02 16:23 | PN ---
<Massiel De - Last Filed: 06/02/17 16:24> Physical Exam: SUBJECTIVE: Patient seen and examined sitting up in bed; c/o of not sleeping for two days. Denies lightheadedness, CEJA, cp, palpitations, sob. Plan for stress test in am. OBJECTIVE: Vital Signs Period Temp Pulse Resp BP Sys/Arreguin Pulse Ox Last 24 Hr 98.5 F-98.9 F 72-86 18-20 103-134/62-84 94 GENERAL: The patient is obese, awake, alert, and fully oriented, in no acute distress. LUNGS: decreased Breath sounds equal, clear to auscultation bilaterally, no wheezes, no crackles, no accessory muscle use. HEART: Regular rate and rhythm, S1, S2 without murmur, rub or gallop. ABDOMEN: obese Soft, nontender, nondistended, normoactive bowel sounds, no guarding, no rebound, no hepatosplenomegaly, no masses. EXTREMITIES: 2+ pulses, warm, well-perfused, no edema. Laboratory Results - last 24 hr 06/01/17 06/01/17 06/02/17 18:35 21:28 01:30 Sodium Potassium Chloride Carbon Dioxide Anion Gap BUN Creatinine Creat Clearance w eGFR POC Glucometer 146 Random Glucose Calcium Total Bilirubin AST ALT Alkaline Phosphatase Creatine Kinase 56 Troponin I < 0.02 Total Protein Albumin Triglycerides Cholesterol Total LDL Cholesterol HDL Cholesterol TSH Urine Color Ltyellow Urine Appearance Clear Urine pH 6.0 Ur Specific [place] 1.013 Urine Protein Negative Urine Glucose (UA) Negative Urine Ketones Negative Urine Blood Negative Urine Nitrite Negative Urine Bilirubin Negative Urine Urobilinogen Negative Ur Leukocyte Esterase Negative Ur Random Sodium Ur Random Potassium Ur Random Chloride Urine Creatinine 06/02/17 06/02/17 06/02/17 01:30 05:14 06:30 Sodium 137 Potassium 4.6 Chloride 108 H Carbon Dioxide 23 Anion Gap 6 L BUN 55 H Creatinine 1.8 H Creat Clearance w eGFR 38.06 POC Glucometer 121 Random Glucose 109 H D Calcium 8.5 Total Bilirubin 0.4 D AST 48 H D ALT 87 H Alkaline Phosphatase 102 Creatine Kinase Troponin I Total Protein 7.7 Albumin 3.4 Triglycerides 85 Cholesterol 71 Total LDL Cholesterol 40 HDL Cholesterol 28 L TSH 2.10 Urine Color Urine Appearance Urine pH Ur Specific [place] Urine Protein Urine Glucose (UA) Urine Ketones Urine Blood Urine Nitrite Urine Bilirubin Urine Urobilinogen Ur Leukocyte Esterase Ur Random Sodium 72 Ur Random Potassium 21.5 Ur Random Chloride 65 Urine Creatinine 73.1 06/02/17 06/02/17 06:30 06:30 Sodium Potassium Chloride Carbon Dioxide Anion Gap BUN Creatinine Creat Clearance w eGFR POC Glucometer Random Glucose Calcium Total Bilirubin AST ALT Alkaline Phosphatase Creatine Kinase Troponin I Total Protein Albumin Triglycerides Cancelled Cholesterol Cancelled Total LDL Cholesterol Cancelled HDL Cholesterol Cancelled TSH Cancelled Urine Color Urine Appearance Urine pH Ur Specific [place] Urine Protein Urine Glucose (UA) Urine Ketones Urine Blood Urine Nitrite Urine Bilirubin Urine Urobilinogen Ur Leukocyte Esterase Ur Random Sodium Ur Random Potassium Ur Random Chloride Urine Creatinine Active Medications Generic Name Dose Route Start Last Admin Trade Name Freq PRN Reason Stop Dose Admin Apixaban 2.5 mg 06/01/17 00:00 06/02/17 09:24 Eliquis - PO 2.5 mg BID MARY Administration Atorvastatin Calcium 20 mg 06/01/17 22:00 06/01/17 21:32 Lipitor - PO 20 mg HS [facility] Administration Escitalopram Oxalate 20 mg 06/01/17 10:00 06/02/17 09:24 Lexapro - PO 20 mg DAILY MARY Administration Sodium Chloride 1,000 mls @ 42 mls/hr 06/01/17 16:30 06/01/17 16:32 1/2 Normal Saline IV 06/02/17 16:19 42 mls/hr ASDIR MARY Administration Insulin Aspart 1 vial 06/01/17 16:30 06/02/17 11:07 Novolog Vial Sliding Scale - SQ Not Given TIDAC [facility] Protocol Insulin Detemir 10 units 06/01/17 22:00 06/01/17 21:32 Levemir Vial SQ Not Given [facility] ASSESSMENT/PLAN: This is a 66 year old male with a history of DM, htn, hld, cad s/p 6stent bypass , cva, renal Ca? s/p RT, admitted for hypoglycemia and acute kidney injury. #MEL: improved -baseline unknown; Cr. 1.3 today from 2.0 yest -FeNa 1.3; intrinsic -renal US: left kidney altered echgen, possible 1.4cm left renal distrophic calcification vs non obstructing calculus, 2.7cm rt hypoech focus normal variant vs neoplasm; -MRI recommended by radiology; will discuss with renal -hold nephrotoxic agents -gentle fluid hydration -renal consulted #chest pain: r/o ACS -stress test in am -tele cardio consulted #hypoglycemia/DM: resolved -cont ss BGM #CXR with loculation ; f/u repeat #hx of CVA; cont eliquis #htn: cont metoprolol ; lasix and lisinopril on hold due to kidney injury DVT: eliquis Diet: npo after midnight for stress Visit type - Emergency Visit Emergency Visit: Yes ED Registration Date: 05/31/17 Care time: The patient presented to the Emergency Department on the above date and was hospitalized for further evaluation of their emergent condition. - New Patient This patient is new to me today: Yes Date on this admission: 06/02/17 - Critical Care Critical Care patient: No <Ashley Sahu - Last Filed: 06/02/17 19:44> Physical Exam: Agree with resident's note.
--- NOTE | 2017-06-02 17:25 | PN ---
Progress Note, Physician History of Present Illness: Pt seen and examined at bedside. He is awake and appears comfortable. He denies shortness of breath. He denies dysuria or hematuria. - Current Medication List Current Medications: Active Medications Apixaban (Eliquis -) 2.5 mg PO BID [facility] Last Admin: 06/02/17 09:24 Dose: 2.5 mg Atorvastatin Calcium (Lipitor -) 20 mg PO [facility] Last Admin: 06/01/17 21:32 Dose: 20 mg Escitalopram Oxalate (Lexapro -) 20 mg PO DAILY [facility] Last Admin: 06/02/17 09:24 Dose: 20 mg Insulin Aspart (Novolog Vial Sliding Scale -) 1 vial SQ TIDAC [facility] PRN Reason: Protocol Last Admin: 06/02/17 11:07 Dose: Not Given Insulin Detemir (Levemir Vial) 10 units SQ [facility] Last Admin: 06/01/17 21:32 Dose: Not Given - Objective Vital Signs: Vital Signs Temperature 98.7 F 06/02/17 09:26 Pulse Rate 86 06/02/17 09:26 Respiratory Rate 18 06/02/17 10:00 Blood Pressure 134/84 06/02/17 09:26 O2 Sat by Pulse Oximetry (%) 95 06/02/17 10:00 Constitutional: Yes: Calm Eyes: Yes: Conjunctiva Clear HENT: Yes: Atraumatic Neck: Yes: Supple Cardiovascular: Yes: S1, S2 Respiratory: Yes: CTA Bilaterally Gastrointestinal: Yes: Soft, Abdomen, Obese Genitourinary: Yes: WNL Musculoskeletal: Yes: WNL Edema: No Neurological: Yes: Confusion Psychiatric: Yes: Oriented Labs: CBC, BMP 06/01/17 07:28 06/02/17 06:30 Problem List - Problems (1) CKD (chronic kidney disease) Code(s): N18.9 - CHRONIC KIDNEY DISEASE, UNSPECIFIED (2) MEL (acute kidney injury) Code(s): N17.9 - ACUTE KIDNEY FAILURE, UNSPECIFIED (3) CAD (coronary artery disease) of bypass graft Code(s): I25.810 - ATHEROSCLEROSIS OF CABG W/O ANGINA PECTORIS (4) CVA (cerebral vascular accident) Code(s): I63.9 - CEREBRAL INFARCTION, UNSPECIFIED (5) DVT prophylaxis Code(s): [id number] - (6) HTN (hypertension) Code(s): I10 - ESSENTIAL (PRIMARY) HYPERTENSION Assessment/Plan Current Medications Generic Name Dose Route Start Last Admin Trade Name Lottie PRN Reason Stop Dose Admin Apixaban 2.5 mg 06/01/17 00:00 06/02/17 09:24 Eliquis - PO 2.5 mg BID MARY Administration Atorvastatin Calcium 20 mg 06/01/17 22:00 06/01/17 21:32 Lipitor - PO 20 mg HS MARY Administration Escitalopram Oxalate 20 mg 06/01/17 10:00 06/02/17 09:24 Lexapro - PO 20 mg DAILY MARY Administration Insulin Aspart 1 vial 06/01/17 16:30 06/02/17 11:07 Novolog Vial Sliding Scale - SQ Not Given TIDAC [facility] Protocol Insulin Detemir 10 units 06/01/17 22:00 06/01/17 21:32 Levemir Vial SQ Not Given HS MARY Impression 1. 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 MEL possibly from dehydration if environmental programs manager is elevated from baseline 3. DM 4. hypoglycemia 5. hx CVA 6. HLD Plan - pt did not have nephrectomy as both kidneys are visualized on ultrasound - ua neg for blood or protein - will need to check outpt labs to see what baseline environmental programs manager is - pt likely had a procedure done to the left kidney in the past - monitor blood sugar Dr Zarate
[2017-06-02] MEDS: INSULIN DETEMIR 100 UNITS/ML MDV SQ SCH (21:57)
[2017-06-02] MEDS: ATORVASTATIN CA 20 MG TABLET (FP) PO SCH (21:58)
[2017-06-03] MEDS ORDERED: MELATONIN 5 MG TABLETS PO ONE ×2 (02:21→20:15)
[2017-06-03] MEDS: INSULIN SLIDING SCALE (NOVOLOG) 1 VIAL SQ SCH ×3 (06:31→18:35)
[2017-06-03 08:00] LABS: CHLORIDE 109 mmol/L (98-107); POTASSIUM 4.4 mmol/L (3.5-5.1); SODIUM 138 mmol/L (136-145)
[2017-06-03 08:15] LABS: ANION GAP 6 (8-16); BLOOD UREA NITROGEN 43 mg/dL (7-18); CALCIUM 8.6 mg/dL (8.5-10.1); CO2 23 mmol/L (21-32); CREATININE 1.6 mg/dL (0.7-1.3); GLUCOSE,RANDOM 136 mg/dL (74-106)
[2017-06-03] MEDS ORDERED: APIXABAN 2.5 MG TABLET PO SCH (10:00)
[2017-06-03] MEDS ORDERED: REGADENOSON 0.4 MG/5 ML PRE-FILLED SYRINGE IVPUSH ONE ×2 (11:00→11:33)
[2017-06-03] MEDS: ESCITALOPRAM OXALATE 20 MG TABLET (FP) PO SCH (15:14)
--- NOTE | 2017-06-03 15:42 | PN ---
<Kevin Frausto - Last Filed: 06/03/17 15:42> Physical Exam: SUBJECTIVE: Patient seen and examined No acute events overnight. Patient awaiting stress test today OBJECTIVE: Vital Signs Period Temp Pulse Resp BP Sys/Arreguin Pulse Ox Last 24 Hr 97.4 F-98.4 F 81-100 18-22 128-148/47-89 94-95 GENERAL: The patient is obese, awake, alert, and fully oriented, in no acute distress. LUNGS: decreased Breath sounds equal, clear to auscultation bilaterally, no wheezes, no crackles, no accessory muscle use. HEART: Regular rate and rhythm, S1, S2 without murmur, rub or gallop. ABDOMEN: obese, Soft, nontender, nondistended, normoactive bowel sounds, no guarding, no rebound, no hepatosplenomegaly, no masses. EXTREMITIES: 2+ pulses, warm, well-perfused, no edema. Laboratory Results - last 24 hr 06/01/17 06/01/17 06/02/17 16:03 16:05 06:30 Sodium Potassium Chloride Carbon Dioxide Anion Gap BUN Creatinine POC Glucometer 263 270 Random Glucose Hemoglobin A1c % 7.6 H Calcium 06/02/17 06/02/17 06/02/17 16:54 16:58 21:38 Sodium Potassium Chloride Carbon Dioxide Anion Gap BUN Creatinine POC Glucometer 209 123 213 Random Glucose Hemoglobin A1c % Calcium 06/03/17 06/03/17 05:51 06:28 Sodium 138 Potassium 4.4 Chloride 109 H Carbon Dioxide 23 Anion Gap 6 L BUN 43 H D Creatinine 1.6 H POC Glucometer 146 Random Glucose 136 H D Hemoglobin A1c % Calcium 8.6 Active Medications Generic Name Dose Route Start Last Admin Trade Name Freq PRN Reason Stop Dose Admin Apixaban 2.5 mg 06/03/17 10:00 06/03/17 15:14 Eliquis - PO 2.5 mg BID MARY Administration Atorvastatin Calcium 20 mg 06/03/17 22:00 Lipitor - PO HS MARY Escitalopram Oxalate 20 mg 06/03/17 10:00 06/03/17 15:14 Lexapro - PO 20 mg DAILY MARY Administration Insulin Aspart 1 vial 06/03/17 07:00 06/03/17 12:00 Novolog Vial Sliding Scale - SQ Not Given TIDAC [facility] Protocol Insulin Detemir 10 units 06/03/17 22:00 Levemir Vial SQ HS [facility] ASSESSMENT/PLAN: This is a 66 year old male with a history of DM, htn, hld, cad s/p 6stent bypass , cva, renal Ca? s/p RT, admitted for hypoglycemia and acute kidney injury. #MEL: improved -baseline unknown, creatinine improving -renal US: left kidney altered echgen, possible 1.4cm left renal distrophic calcification vs non obstructing calculus, 2.7cm rt hypoech focus normal variant vs neoplasm; -hold nephrotoxic agents -gentle fluid hydration -renal consulted #chest pain: r/o ACS -stress test + for moderate reversible defect, will need cath -tele -Echo-trace AR, trace [place], LV normal fxn -cardio consulted #hypoglycemia/DM: resolved -cont ss BGM #hx of CVA; cont eliquis #htn: cont metoprolol ; lasix and lisinopril on hold due to kidney injury DVT: eliquis Dispo: will need transfer for cardiac cath Visit type - Emergency Visit Emergency Visit: Yes ED Registration Date: 05/31/17 Care time: The patient presented to the Emergency Department on the above date and was hospitalized for further evaluation of their emergent condition. - New Patient This patient is new to me today: Yes Date on this admission: 06/03/17 - Critical Care Critical Care patient: No <Ashley Sahu - Last Filed: 06/03/17 16:51> Physical Exam: Patient has a positive stress test, cardiology will arrange Transfer for cardiac cath. Vital Signs Temperature 98.4 F 06/03/17 14:00 Pulse Rate 88 06/03/17 14:00 Respiratory Rate 20 06/03/17 14:00 Blood Pressure 141/85 06/03/17 14:00 O2 Sat by Pulse Oximetry (%) 94 L 06/03/17 10:00 CBCD WBC 7.5 K/mm3 (4.0-10.0) 06/01/17 07:28 RBC 3.99 M/mm3 (4.00-5.60) L 06/01/17 07:28 Hgb 10.6 GM/dL (11.7-16.9) L 06/01/17 07:28 Hct 32.5 % (35.4-49) L 06/01/17 07:28 MCV 81.5 fl (80-96) 06/01/17 07:28 MCHC 32.8 g/dl (32.0-35.9) 06/01/17 07:28 RDW 17.9 % (11.9-15.9) H 06/01/17 07:28 Plt Count 203 K/MM3 (134-434) 06/01/17 07:28 MPV 7.4 fl (7.5-11.1) L 06/01/17 07:28 CMP Sodium 138 mmol/L (136-145) 06/03/17 05:51 Potassium 4.4 mmol/L (3.5-5.1) 06/03/17 05:51 Chloride 109 mmol/L (98-107) H 06/03/17 05:51 Carbon Dioxide 23 mmol/L (21-32) 06/03/17 05:51 Anion Gap 6 (8-16) L 06/03/17 05:51 BUN 43 mg/dL (7-18) H D 06/03/17 05:51 Creatinine 1.6 mg/dL (0.7-1.3) H 06/03/17 05:51 Creat Clearance w eGFR 38.06 (>60) 06/02/17 06:30 Random Glucose 136 mg/dL (74-106) H D 06/03/17 05:51 Calcium 8.6 mg/dL (8.5-10.1) 06/03/17 05:51 Total Bilirubin 0.4 mg/dL (0.2-1.0) D 06/02/17 06:30 AST 48 U/L (15-37) H D 06/02/17 06:30 ALT 87 U/L (12-78) H 06/02/17 06:30 Alkaline Phosphatase 102 U/L (45-117) 06/02/17 06:30 Total Protein 7.7 g/dl (6.4-8.2) 06/02/17 06:30 Albumin 3.4 g/dl (3.4-5.0) 06/02/17 06:30 CARDIAC ENZYMES Creatine Kinase 56 IU/L (39-308) 06/01/17 18:35 Troponin I < 0.02 ng/ml (0.00-0.05) 06/01/17 18:35 Current Medications Generic Name Dose Route Start Last Admin Trade Name Lottie PRN Reason Stop Dose Admin Aspirin 81 mg 06/03/17 16:45 Ecotrin - PO DAILY [facility] Atorvastatin Calcium 20 mg 06/03/17 22:00 Lipitor - PO HS [facility] Escitalopram Oxalate 20 mg 06/03/17 10:00 06/03/17 15:14 Lexapro - PO 20 mg DAILY [facility] Administration HEPARIN SOD,PORK IN 0.45% NACL 25,000 unit in 500 mls @ 16 mls/hr 06/04/17 07: 00 Heparin-1/2ns 25,000 Units/500 IVPB TITR [facility] Protocol 800 UNITS/HR Insulin Aspart 1 vial 06/03/17 07:00 06/03/17 12:00 Novolog Vial Sliding Scale - SQ Not Given TIDAC [facility] Protocol Insulin Detemir 10 units 06/03/17 22:00 Levemir Vial SQ HS [facility] Home Medications Medication Instructions Recorded Apixaban [Eliquis -] 2.5 mg PO BID 05/31/17 Atorvastatin Ca [Lipitor] 20 mg PO HS 05/31/17 Escitalopram Oxalate [Lexapro -] 20 mg PO DAILY 05/31/17 Furosemide [Lasix -] 40 mg PO BID 05/31/17 Gabapentin [Neurontin -] 100 mg PO Q8H 05/31/17 Insulin Glargine,Hum.rec.anlog 25 unit SQ HS 05/31/17 [Basaglar Kwikpen U-100] Lisinopril [Zestril] 2.5 mg PO DAILY 05/31/17 Metoprolol Tartrate [Lopressor -] 25 mg PO BID 05/31/17 Repaglinide [Prandin -] 1 mg PO TIDCM 05/31/17
--- NOTE | 2017-06-03 16:10 | PN ---
Progress Note, Physician History of Present Illness: Pt seen and examined at bedside. He is awake and alert. He denies shortness of breath. He was found to have a positive stress test. - Current Medication List Current Medications: Active Medications Apixaban (Eliquis -) 2.5 mg PO BID [facility] Last Admin: 06/03/17 15:14 Dose: 2.5 mg Atorvastatin Calcium (Lipitor -) 20 mg PO HS [facility] Escitalopram Oxalate (Lexapro -) 20 mg PO DAILY [facility] Last Admin: 06/03/17 15:14 Dose: 20 mg Insulin Aspart (Novolog Vial Sliding Scale -) 1 vial SQ TIDAC [facility] PRN Reason: Protocol Last Admin: 06/03/17 12:00 Dose: Not Given Insulin Detemir (Levemir Vial) 10 units SQ [facility] - Objective Vital Signs: Vital Signs Temperature 98.4 F 06/03/17 14:00 Pulse Rate 88 06/03/17 14:00 Respiratory Rate 20 06/03/17 14:00 Blood Pressure 141/85 06/03/17 14:00 O2 Sat by Pulse Oximetry (%) 94 L 06/03/17 10:00 Constitutional: Yes: Calm Eyes: Yes: Conjunctiva Clear Cardiovascular: Yes: S1, S2 Gastrointestinal: Yes: Soft Genitourinary: Yes: WNL Musculoskeletal: Yes: WNL Edema: Yes Edema: LLE: Trace, RLE: Trace Neurological: Yes: Confusion Psychiatric: Yes: Oriented Labs: CBC, BMP 06/01/17 07:28 06/03/17 05:51 Problem List - Problems (1) CKD (chronic kidney disease) Code(s): N18.9 - CHRONIC KIDNEY DISEASE, UNSPECIFIED (2) MEL (acute kidney injury) Code(s): N17.9 - ACUTE KIDNEY FAILURE, UNSPECIFIED (3) CAD (coronary artery disease) of bypass graft Code(s): I25.810 - ATHEROSCLEROSIS OF CABG W/O ANGINA PECTORIS (4) CVA (cerebral vascular accident) Code(s): I63.9 - CEREBRAL INFARCTION, UNSPECIFIED (5) DVT prophylaxis Code(s): ZKP1483 - (6) HTN (hypertension) Code(s): I10 - ESSENTIAL (PRIMARY) HYPERTENSION Assessment/Plan Current Medications Generic Name Dose Route Start Last Admin Trade Name Freq PRN Reason Stop Dose Admin Apixaban 2.5 mg 04/02/18 10:00 06/03/17 15:14 Eliquis - PO 2.5 mg BID MARY Administration Atorvastatin Calcium 20 mg 06/03/17 22:00 Lipitor - PO HS MARY Escitalopram Oxalate 20 mg 06/03/17 10:00 06/03/17 15:14 Lexapro - PO 20 mg DAILY MARY Administration Insulin Aspart 1 vial 06/03/17 07:00 06/03/17 12:00 Novolog Vial Sliding Scale - SQ Not Given TIDAC [facility] Protocol Insulin Detemir 10 units 06/03/17 22:00 Levemir Vial SQ HS MARY Impression 1. CKD with unclear baseline health communications specialist 2. MEL possibly from dehydration if health communications specialist is elevated from baseline 3. DM 4. hypoglycemia 5. hx CVA 6. HLD 7. positive stress test Plan - renal function is improved - cardiology follow up - cont with fluids to optimize renal function for any possible cardiac intervention - discussed with medical team, pt likely to be transferred - monitor blood sugar Dr Zarate
--- NOTE | 2017-06-03 16:40 | PN ---
Progress Note, Physician History of Present Illness: Mr. Wang is a 66 yr old white man with PMH of nephrectomy ("kidney ablation"), ? renal tumor ("they are discussing chemoterapy with me"),, diabetes, CVA ( about 13 yrs ago; ?no residual defects), CAD (hx if "RI"-->6 coronary stents, followed by CABG 13 yrs ago at [facility]), sleep apnea (noncompliant to CPAP), obesity, sedentary lifestyle,who presents with a chief complaint of lethargy and not responding well today. Sugar measurement 48 at home; given candy and juice, went to 118. No complaints at this time. Denies fevers, chills, n/v/d. Pt states that, a few months ago, he bagan having a 4/10 central chest ache; it occurred twice on awakening, and lasted a few minutes. When he walks, he feels "deconditioned" (easily dyspneic; ?accompanying chest ache(). Former cigarettes (quit many years ago). Several glasses of wine daily for many years (quit a few months ago). - History Source History Provided By: Patient, Medical Record Limitations to Obtaining History: No Limitations - Current Medication List Current Medications: Active Medications Apixaban (Eliquis -) 2.5 mg PO BID [facility] Last Admin: 06/03/17 15:14 Dose: 2.5 mg Atorvastatin Calcium (Lipitor -) 20 mg PO HS [facility] Escitalopram Oxalate (Lexapro -) 20 mg PO DAILY [facility] Last Admin: 06/03/17 15:14 Dose: 20 mg Insulin Aspart (Novolog Vial Sliding Scale -) 1 vial SQ TIDAC [facility] PRN Reason: Protocol Last Admin: 06/03/17 12:00 Dose: Not Given Insulin Detemir (Levemir Vial) 10 units SQ HS [facility] - Objective Vital Signs: Vital Signs Temperature 98.4 F 06/03/17 14:00 Pulse Rate 88 06/03/17 14:00 Respiratory Rate 20 06/03/17 14:00 Blood Pressure 141/85 06/03/17 14:00 O2 Sat by Pulse Oximetry (%) 94 L 06/03/17 10:00 Eyes: Yes: WNL, Conjunctiva Clear, EOM Intact HENT: Yes: WNL, Atraumatic, Normocephalic Neck: Yes: WNL, Supple, Trachea Midline Cardiovascular: Yes: WNL, Regular Rate and Rhythm Respiratory: Yes: WNL, Regular, CTA Bilaterally Gastrointestinal: Yes: WNL, Normal Bowel Sounds Genitourinary: Yes: WNL Musculoskeletal: Yes: WNL Extremities: Yes: WNL Edema: No Integumentary: Yes: WNL Neurological: Yes: WNL, Alert, Oriented ...Motor Strength: WNL Psychiatric: Yes: WNL Labs: CBC, BMP 06/01/17 07:28 06/03/17 05:51 Assessment/Plan - Problems (1) Diabetes Code(s): E11.9 - TYPE 2 DIABETES MELLITUS WITHOUT COMPLICATIONS (2) CAD (coronary artery disease) of bypass graft Assessment/Plan: Hx RI-->6 cor stents, followed by CABG about 13 yrs ago. Since then, he has never had a stress test or angiogram; he thought that CABG would fix the heart for life. He used to walk 4 miles from [facility] to his home in [place] most working days, and felt very well. However, he stopped this more than 5 yrs ago, and has been quite sedentary since. TNI serially (1st 0.02). ECHO for LVEF, wall motion. Stress MIBI (treadmill as stress agent). F/u TSH, lipids. Code(s): I25.810 - ATHEROSCLEROSIS OF CABG W/O ANGINA PECTORIS (3) CKD (chronic kidney disease) Assessment/Plan: workup with piercing mill operator noted and appreciated. ACEI or ARBS problematic presently. Code(s): N18.9 - CHRONIC KIDNEY DISEASE, UNSPECIFIED (4) CVA (cerebral vascular accident) Assessment/Plan: ?hx CVA; slow, at times repetitive speech, though appropriate. F/u workup. Code(s): I63.9 - CEREBRAL INFARCTION, UNSPECIFIED (5) HLD (hyperlipidemia) Code(s): E78.5 - HYPERLIPIDEMIA, UNSPECIFIED (6) HTN (hypertension) Code(s): I10 - ESSENTIAL (PRIMARY) HYPERTENSION (7) Hypoglycemia Code(s): E16.2 - HYPOGLYCEMIA, UNSPECIFIED (8) Sleep apnea Code(s): G47.30 - SLEEP APNEA, UNSPECIFIED (9) Depression Code(s): F32.9 - MAJOR DEPRESSIVE DISORDER, SINGLE EPISODE, UNSPECIFIED (10) [place] cardiac risk >20% in next 10 years Assessment/Plan: Diet, exercise, weight loss discussed in detail. Code(s): Z91.89 - OTH PERSONAL RISK FACTORS, NOT ELSEWHERE CLASSIFIED (11) Elevated LFTs Assessment/Plan: alcohol to excess for years; stopped a few months ago. renal dysfunction. CHF. F/u workup. Code(s): R79.89 - OTHER SPECIFIED ABNORMAL FINDINGS OF BLOOD CHEMISTRY (12) CHF (congestive heart failure) Assessment/Plan: Congestive changes on CXR. dyspnea on exertion; chest discomfort. F/u BNP; serial TNIs. ECHO Stress sunshine ef 43 % moderate anterior and inferior ischemia. will need a c. cth renalf/u to optimize renal fx will stop eliquis and start unfractionated heparin in am start asa 81 qd Code(s): I50.9 - HEART FAILURE, UNSPECIFIED
[2017-06-03] MEDS ORDERED: HEPARIN NA (PORCINE) 5,000 UNITS/ML 1ML VIAL IVPUSH PRN ×2 (16:45)
[2017-06-03] MEDS: ASPIRIN COATED 81 MG TABLET.EC PO SCH (18:19)
[2017-06-03] MEDS: ATORVASTATIN CA 20 MG TABLET (FP) PO SCH (22:12)
[2017-06-03] MEDS: INSULIN DETEMIR 100 UNITS/ML MDV SQ SCH (22:12)
[2017-06-04] MEDS: INSULIN SLIDING SCALE (NOVOLOG) 1 VIAL SQ SCH ×3 (06:43→16:19)
[2017-06-04] MEDS ORDERED: HEPARIN NA (PORCINE) 5,000 UNITS/ML 1ML VIAL IVPUSH PRN ×2 (07:00)
[2017-06-04 07:33] LABS: CHLORIDE 110 mmol/L (98-107); POTASSIUM 4.5 mmol/L (3.5-5.1); SODIUM 139 mmol/L (136-145)
[2017-06-04 07:48] LABS: ANION GAP 7 (8-16); BLOOD UREA NITROGEN 38 mg/dL (7-18); CO2 22 mmol/L (21-32); CREATININE 1.6 mg/dL (0.7-1.3); GLUCOSE,RANDOM 130 mg/dL (74-106)
--- NOTE | 2017-06-04 09:11 | PN ---
Physical Exam: SUBJECTIVE: Patient seen and examined No acute events overnight. Patient denies chest pain. Awaiting transfer for cardiac cath. OBJECTIVE: Vital Signs Period Temp Pulse Resp BP Sys/Arreguin Pulse Ox Last 24 Hr 97.4 F-98.5 F 74-92 20-22 116-142/47-85 94-94 GENERAL: The patient is obese, awake, alert, and fully oriented, in no acute distress. LUNGS: Decreased Breath sounds b/l, clear to auscultation bilaterally, no wheezes, no crackles, no accessory muscle use. HEART: Regular rate and rhythm, S1, S2 without murmur, rub or gallop. ABDOMEN: obese, Soft, nontender, nondistended, normoactive bowel sounds, no guarding, no rebound, no hepatosplenomegaly, no masses. EXTREMITIES: 2+ pulses, warm, well-perfused, no edema. Laboratory Results - last 24 hr 06/02/17 06/03/17 06/03/17 06:30 16:59 22:01 Sodium Potassium Chloride Carbon Dioxide Anion Gap BUN Creatinine POC Glucometer 154 195 Random Glucose Hemoglobin A1c % 7.6 H Calcium 06/04/17 06/04/17 06:25 06:26 Sodium 139 Potassium 4.5 Chloride 110 H Carbon Dioxide 22 Anion Gap 7 L BUN 38 H Creatinine 1.6 H POC Glucometer 136 Random Glucose 130 H Hemoglobin A1c % Calcium 9.0 Active Medications Generic Name Dose Route Start Last Admin Trade Name Freq PRN Reason Stop Dose Admin Aspirin 81 mg 06/03/17 16:45 06/03/17 18:19 Ecotrin - PO 81 mg DAILY MARY Administration Atorvastatin Calcium 20 mg 06/03/17 22:00 06/03/17 22:12 Lipitor - PO 20 mg HS MARY Administration Escitalopram Oxalate 20 mg 06/03/17 10:00 06/03/17 15:14 Lexapro - PO 20 mg DAILY MARY Administration Heparin Sodium (Porcine) 5,000 unit 06/04/17 07:00 Heparin - IVPUSH PRN PRN APPT (SECONDS) <40 Heparin Sodium (Porcine) 1,000 unit 06/04/17 07:00 Heparin - IVPUSH PRN PRN APPT (SECONDS) 40-49 HEPARIN SOD,PORK IN 0.45% NACL 25,000 unit in 500 mls @ 16 mls/hr 06/04/17 07: 00 Heparin-1/2ns 25,000 Units/500 IVPB TITR [facility] Protocol 800 UNITS/HR Insulin Aspart 1 vial 06/03/17 07:00 06/04/17 06:43 Novolog Vial Sliding Scale - SQ Not Given TIDAC [facility] Protocol Insulin Detemir 10 units 06/03/17 22:00 06/03/17 22:12 Levemir Vial SQ 10 units HS [facility] Administration ASSESSMENT/PLAN: This is a 66 year old male with a history of DM, htn, hld, cad s/p 6stent bypass , cva, renal Ca? s/p RT, admitted for hypoglycemia and acute kidney injury. #MEL: improving -baseline unknown, creatinine improving -renal US: left kidney altered echogen, possible 1.4cm left renal distrophic calcification vs non obstructing calculus, 2.7cm rt hypoech focus normal variant vs neoplasm; -hold nephrotoxic agents -renal consulted #chest pain: r/o ACS -stress test + for moderate reversible defect, will need cath. Pending transfer per cardiology -tele -Echo-trace AR, trace [place], LV normal fxn -cardio consulted #hypoglycemia/DM: resolved -cont ss BGM -levemir 10 sq hs #hx of CVA; cont eliquis #htn: cont metoprolol ; lasix and lisinopril on hold due to kidney injury DVT: eliquis Dispo: Pending transfer per cardiology Visit type - Emergency Visit Emergency Visit: Yes ED Registration Date: 05/31/17 Care time: The patient presented to the Emergency Department on the above date and was hospitalized for further evaluation of their emergent condition. - New Patient This patient is new to me today: No - Critical Care Critical Care patient: No
[2017-06-04] MEDS: HEPARIN SOD,PORK IN 0.45% NACL 25,000 UNIT/500 ML INFUS.BAG IVPB SCH (09:27)
[2017-06-04] MEDS: ESCITALOPRAM OXALATE 20 MG TABLET (FP) PO SCH (09:28)
[2017-06-04] MEDS: ASPIRIN COATED 81 MG TABLET.EC PO SCH (09:28)
--- NOTE | 2017-06-04 11:36 | PN ---
Teaching Attending Note Name of Resident: Kevin Fruasto ATTENDING PHYSICIAN STATEMENT I saw and evaluated the patient. I reviewed the resident's note and discussed the case with the resident. I agree with the resident's findings and plan as documented. SUBJECTIVE: Patient has no chest pain at this time. no shortness of breath, no nausea or vomiting. Feels better. OBJECTIVE: Vital Signs Temperature 98.2 F 06/04/17 10:00 Pulse Rate 75 06/04/17 10:00 Respiratory Rate 20 06/04/17 11:24 Blood Pressure 125/60 06/04/17 10:00 O2 Sat by Pulse Oximetry (%) 94 L 06/04/17 11:24 GENERAL: The patient is awake, alert, and fully oriented, in no acute distress. HEAD: Normal with no signs of trauma. EYES: PERRL, extraocular movements intact, sclera anicteric, conjunctiva clear. ENT: Ears normal, oropharynx clear without exudates, moist mucous membranes. NECK: Trachea midline, full range of motion, supple. LUNGS: Breath sounds equal, clear to auscultation bilaterally, no wheezes, no crackles, no accessory muscle use. HEART: Regular rate and rhythm, S1, S2 positive, with TRISTA 1/6 no rub or gallop. ABDOMEN: Soft, nontender, nondistended, normoactive bowel sounds, no guarding, no rebound, no hepatosplenomegaly, no masses. EXTREMITIES: 2+ pulses, warm, well-perfused, no edema. NEUROLOGICAL: Cranial nerves II through XII grossly intact. Normal speech, gait not observed. PSYCH: Normal mood, normal affect. SKIN: Warm, dry, normal turgor, no rashes or lesions noted CBCD WBC 7.5 K/mm3 (4.0-10.0) 06/01/17 07:28 RBC 3.99 M/mm3 (4.00-5.60) L 06/01/17 07:28 Hgb 10.6 GM/dL (11.7-16.9) L 06/01/17 07:28 Hct 32.5 % (35.4-49) L 06/01/17 07:28 MCV 81.5 fl (80-96) 06/01/17 07:28 MCHC 32.8 g/dl (32.0-35.9) 06/01/17 07:28 RDW 17.9 % (11.9-15.9) H 06/01/17 07:28 Plt Count 203 K/MM3 (134-434) 06/01/17 07:28 MPV 7.4 fl (7.5-11.1) L 06/01/17 07:28 CMP Sodium 139 mmol/L (136-145) 06/04/17 06:25 Potassium 4.5 mmol/L (3.5-5.1) 06/04/17 06:25 Chloride 110 mmol/L (98-107) H 06/04/17 06:25 Carbon Dioxide 22 mmol/L (21-32) 06/04/17 06:25 Anion Gap 7 (8-16) L 06/04/17 06:25 BUN 38 mg/dL (7-18) H 06/04/17 06:25 Creatinine 1.6 mg/dL (0.7-1.3) H 06/04/17 06:25 Creat Clearance w eGFR 38.06 (>60) 06/02/17 06:30 Random Glucose 130 mg/dL (74-106) H 06/04/17 06:25 Calcium 9.0 mg/dL (8.5-10.1) 06/04/17 06:25 Total Bilirubin 0.4 mg/dL (0.2-1.0) D 06/02/17 06:30 AST 48 U/L (15-37) H D 06/02/17 06:30 ALT 87 U/L (12-78) H 06/02/17 06:30 Alkaline Phosphatase 102 U/L (45-117) 06/02/17 06:30 Total Protein 7.7 g/dl (6.4-8.2) 06/02/17 06:30 Albumin 3.4 g/dl (3.4-5.0) 06/02/17 06:30 CARDIAC ENZYMES Creatine Kinase 56 IU/L (39-308) 06/01/17 18:35 Troponin I < 0.02 ng/ml (0.00-0.05) 06/01/17 18:35 Current Medications Generic Name Dose Route Start Last Admin Trade Name Freq PRN Reason Stop Dose Admin Aspirin 81 mg 06/03/17 16:45 06/04/17 09:28 Ecotrin - PO 81 mg DAILY MARY Administration Atorvastatin Calcium 20 mg 06/03/17 22:00 06/03/17 22:12 Lipitor - PO 20 mg HS MARY Administration Escitalopram Oxalate 20 mg 06/03/17 10:00 06/04/17 09:28 Lexapro - PO 20 mg DAILY [facility] Administration Heparin Sodium (Porcine) 5,000 unit 06/04/17 07:00 Heparin - IVPUSH PRN PRN APPT (SECONDS) <40 Heparin Sodium (Porcine) 1,000 unit 06/04/17 07:00 Heparin - IVPUSH PRN PRN APPT (SECONDS) 40-49 HEPARIN SOD,PORK IN 0.45% NACL 25,000 unit in 500 mls @ 16 mls/hr 06/04/17 07: 00 06/04/17 09:27 Heparin-1/2ns 25,000 Units/500 IVPB 800 units/hr TITR MARY 16 mls/hr Protocol Administration 800 UNITS/HR Insulin Aspart 1 vial 06/03/17 07:00 06/04/17 06:43 Novolog Vial Sliding Scale - SQ Not Given TIDAC [facility] Protocol Insulin Detemir 10 units 06/03/17 22:00 06/03/17 22:12 Levemir Vial SQ 10 units HS [facility] Administration Home Medications Medication Instructions Recorded Apixaban [Eliquis -] 2.5 mg PO BID 05/31/17 Atorvastatin Ca [Lipitor] 20 mg PO HS 05/31/17 Escitalopram Oxalate [Lexapro -] 20 mg PO DAILY 05/31/17 Furosemide [Lasix -] 40 mg PO BID 05/31/17 Gabapentin [Neurontin -] 100 mg PO Q8H 05/31/17 Insulin Glargine,Hum.rec.anlog 25 unit SQ HS 05/31/17 [Basaglar Kwikpen U-100] Lisinopril [Zestril] 2.5 mg PO DAILY 05/31/17 Metoprolol Tartrate [Lopressor -] 25 mg PO BID 05/31/17 Repaglinide [Prandin -] 1 mg PO TIDCM 05/31/17 ECHO: No LV dysfunction with EJF 69%, trace AR ASSESSMENT AND PLAN: This is a 66 y/o man with hx of DM, HTN, HLD, CAD (s/p Sextuple bypass), CVA, s/ p L- Nephrectomy (no chemo,/RT, tumor workup). presented with MEL and hypoglycemia . # Acute chest pain on and off, Troponins are negative, positive stress test test with hx of GABG 2001 with 6 vessel disease , no further w/u afterward. Stress Stress test positive for moderate intensity ischemia anterior, anterioapical and inferior and inferolateral ischemia. Patient needs cath. being arranged by lacquer pin press operator. stopped eliquis and placed on heparin drip. On AsA 81mg continue . # MEL-Unkown baseline, renal consult is following the patient ; patient is improving 1.9-->1.6 today , LAsix and Zestril is on hold. # HTN on metoprolol continue, lasix and lisinopril on hold # HLD- continue Atorvastatin # CAD continue Lopressor # Hx of CVA was on Eliquis now on Heparin # Diabetic Diet will start him on 10unit Levemir at night with sliding scale, Dc'd Prandin DVT ppx- SCDs,heparin, off Eliquis Code Status: Full Code Tx to Tele to monitor since having cp on and off. HIS MDS: Dr.Ira العلي design quality engineer [phone] () Dr.Satjit Jonas; Auto Dealer [phone] Dr.maria richmond Endocrine [phone] Dr.Kensley Smith ; oncologist [phone] Dr. sarah Schwartz nephrolgist in [facility] Patient is for Tx for Cath, patient preferes [facility]
--- NOTE | 2017-06-04 13:31 | PN ---
Progress Note, Physician History of Present Illness: Pt seen and examined at bedside. He is awake and appear comfortable. He denies shortness of breath. - Current Medication List Current Medications: Active Medications Aspirin (Ecotrin -) 81 mg PO DAILY [facility] Last Admin: 06/04/17 09:28 Dose: 81 mg Atorvastatin Calcium (Lipitor -) 20 mg PO HS [facility] Last Admin: 06/03/17 22:12 Dose: 20 mg Escitalopram Oxalate (Lexapro -) 20 mg PO DAILY [facility] Last Admin: 06/04/17 09:28 Dose: 20 mg Heparin Sodium (Porcine) (Heparin -) 5,000 unit IVPUSH PRN PRN PRN Reason: APPT (SECONDS) <40 Heparin Sodium (Porcine) (Heparin -) 1,000 unit IVPUSH PRN PRN PRN Reason: APPT (SECONDS) 40-49 HEPARIN SOD,PORK IN 0.45% NACL (Heparin-1/2ns 25,000 Units/500) 25,000 unit in 500 mls @ 16 mls/hr IVPB TITR [facility]; 800 UNITS/HR PRN Reason: Protocol Last Admin: 06/04/17 09:27 Dose: 800 units/hr, 16 mls/hr Insulin Aspart (Novolog Vial Sliding Scale -) 1 vial SQ TIDAC [facility] PRN Reason: Protocol Last Admin: 06/04/17 12:03 Dose: Not Given Insulin Detemir (Levemir Vial) 10 units SQ [facility] Last Admin: 06/03/17 22:12 Dose: 10 units Metoprolol Tartrate (Lopressor -) 25 mg PO BID [facility] - Objective Vital Signs: Vital Signs Temperature 98.2 F 06/04/17 10:00 Pulse Rate 75 06/04/17 10:00 Respiratory Rate 20 06/04/17 11:24 Blood Pressure 125/60 06/04/17 10:00 O2 Sat by Pulse Oximetry (%) 94 L 06/04/17 11:24 Constitutional: Yes: Calm Eyes: Yes: Conjunctiva Clear HENT: Yes: Atraumatic Neck: Yes: Supple Cardiovascular: Yes: S1, S2 Respiratory: Yes: CTA Bilaterally Gastrointestinal: Yes: Soft Genitourinary: Yes: WNL Musculoskeletal: Yes: WNL Edema: No Neurological: Yes: Oriented Psychiatric: Yes: Oriented Labs: CBC, BMP 06/01/17 07:28 06/04/17 06:25 Problem List - Problems (1) CKD (chronic kidney disease) Code(s): N18.9 - CHRONIC KIDNEY DISEASE, UNSPECIFIED (2) MEL (acute kidney injury) Code(s): N17.9 - ACUTE KIDNEY FAILURE, UNSPECIFIED (3) CAD (coronary artery disease) of bypass graft Code(s): I25.810 - ATHEROSCLEROSIS OF CABG W/O ANGINA PECTORIS (4) CVA (cerebral vascular accident) Code(s): I63.9 - CEREBRAL INFARCTION, UNSPECIFIED (5) DVT prophylaxis Code(s): MME1251 - (6) HTN (hypertension) Code(s): I10 - ESSENTIAL (PRIMARY) HYPERTENSION Assessment/Plan Current Medications Generic Name Dose Route Start Last Admin Trade Name Freq PRN Reason Stop Dose Admin Aspirin 81 mg 06/03/17 16:45 06/04/17 09:28 Ecotrin - PO 81 mg DAILY [facility] Administration Atorvastatin Calcium 20 mg 06/03/17 22:00 06/03/17 22:12 Lipitor - PO 20 mg HS [facility] Administration Escitalopram Oxalate 20 mg 06/03/17 10:00 06/04/17 09:28 Lexapro - PO 20 mg DAILY [facility] Administration Heparin Sodium (Porcine) 5,000 unit 06/04/17 07:00 Heparin - IVPUSH PRN PRN APPT (SECONDS) <40 Heparin Sodium (Porcine) 1,000 unit 06/04/17 07:00 Heparin - IVPUSH PRN PRN APPT (SECONDS) 40-49 HEPARIN SOD,PORK IN 0.45% NACL 25,000 unit in 500 mls @ 16 mls/hr 06/04/17 07: 00 06/04/17 09:27 Heparin-1/2ns 25,000 Units/500 IVPB 800 units/hr TITR [facility] 16 mls/hr Protocol Administration 800 UNITS/HR Insulin Aspart 1 vial 06/03/17 07:00 06/04/17 12:03 Novolog Vial Sliding Scale - SQ Not Given TIDAC [facility] Protocol Insulin Detemir 10 units 06/03/17 22:00 06/03/17 22:12 Levemir Vial SQ 10 units HS [facility] Administration Metoprolol Tartrate 25 mg 06/04/17 22:00 Lopressor - PO BID [facility] Impression 1. 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 MEL possibly from dehydration if network applications specialist is elevated from baseline 3. DM 4. hypoglycemia 5. hx CVA 6. HLD 7. positive stress test Plan - cont to monitor renal function - pt is at risk for JEROME, will need saline at 75 cc per hour for 12 hour before cath and mucomyst 600 mg po q 12 hr for 2 doses before and 2 doses after contrast - cardiology follow up - attempted to call his sister Alyssa [phone] however there was no answer - will follow - monitor blood sugar Dr Zarate
--- NOTE | 2017-06-04 13:56 | PN ---
Progress Note, Physician Chief Complaint: Pt A&Ox3; no chest pain or dyapnea; no palpitations or dizziness. History of Present Illness: Mr. Wang is a 66 yr old white man with PMH of ?nephrectomy ("kidney ablation") , ? renal tumor ("they are discussing chemoterapy with me"),, diabetes, CVA ( about 13 yrs ago; ?no residual defects; speaks slowly, at times repetitively), CAD (hx of "[place]"in his 40s-->6 coronary stents, followed by CABG [address] [facility]), sleep apnea (noncompliant to CPAP), obesity, sedentary lifestyle, who presents with a chief complaint of lethargy and not responding well today. Sugar measurement 48 at home; given candy and juice, went to 118. No complaints at this time. Denies fevers, chills, n/v/d. Pt states that, a few months ago, he bagan having a 4/10 central chest ache; it occurred twice on awakening, and lasted a few minutes. When he walks, he feels "deconditioned" (easily dyspneic; ?accompanying chest ache). Former cigarettes (quit many years ago). Several glasses of wine daily for many years (quit a few months ago). Father:[place] in his 50s Mother [place] in her 60s. Pt has suffered from "melancholy" in the past; never had psych counseling or antidepressant meds. 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 - Current Medication List Current Medications: Active Medications Aspirin (Ecotrin -) 81 mg PO DAILY [facility] Last Admin: 06/04/17 09:28 Dose: 81 mg Atorvastatin Calcium (Lipitor -) 20 mg PO HS [facility] Last Admin: 06/03/17 22:12 Dose: 20 mg Escitalopram Oxalate (Lexapro -) 20 mg PO DAILY [facility] Last Admin: 06/04/17 09:28 Dose: 20 mg Heparin Sodium (Porcine) (Heparin -) 5,000 unit IVPUSH PRN PRN PRN Reason: APPT (SECONDS) <40 Heparin Sodium (Porcine) (Heparin -) 1,000 unit IVPUSH PRN PRN PRN Reason: APPT (SECONDS) 40-49 HEPARIN SOD,PORK IN 0.45% NACL (Heparin-1/2ns 25,000 Units/500) 25,000 unit in 500 mls @ 16 mls/hr IVPB TITR [facility]; 800 UNITS/HR PRN Reason: Protocol Last Admin: 06/04/17 09:27 Dose: 800 units/hr, 16 mls/hr Insulin Aspart (Novolog Vial Sliding Scale -) 1 vial SQ TIDAC [facility] PRN Reason: Protocol Last Admin: 06/04/17 12:03 Dose: Not Given Insulin Detemir (Levemir Vial) 10 units SQ HS [facility] Last Admin: 06/03/17 22:12 Dose: 10 units Metoprolol Tartrate (Lopressor -) 25 mg PO BID [facility] - Objective Vital Signs: Vital Signs Temperature 98.2 F 06/04/17 10:00 Pulse Rate 75 06/04/17 10:00 Respiratory Rate 20 06/04/17 11:24 Blood Pressure 125/60 06/04/17 10:00 O2 Sat by Pulse Oximetry (%) 94 L 06/04/17 11:24 Labs: CBC, BMP 06/01/17 07:28 06/04/17 06:25 Problem List - Problems (1) Diabetes Code(s): E11.9 - TYPE 2 DIABETES MELLITUS WITHOUT COMPLICATIONS (2) CAD (coronary artery disease) of bypass graft Assessment/Plan: Hx [place]-->6 cor stents, followed by CABG about 13 yrs ago. Since then, he has never had a stress test or angiogram; he thought that CABG would fix the heart for life. He used to walk 4 [place] [facility] [place], and felt very well. However, he stopped this more than 5 yrs ago, and has been quite sedentary since. TNI serially (1st 0.02). ECHO: normal LVEF. Stress MIBI: (Lexiscan): moderate areas of moderately intense ischemia of the anterior, anteroapical, inferoapical, and interolateral underwood, with mildl reduced LVEF of 43%. Plans: Start ticagrelor 180 mg PO now, then 90 mg bid (pt had a rash years ago on clopidogrel, and was told not to take it anymore; discussed with Dr. Bo and samson here: ticagrelor is structurally distinct from clopidogrel, and may be safely started). TNI < 0.02 x 2 TSH 2.1 total cholesterol < 100 mg/dL. Code(s): I25.810 - ATHEROSCLEROSIS OF CABG W/O ANGINA PECTORIS (3) CKD (chronic kidney disease) Assessment/Plan: Improving cratinine clearance. Suggest gentle hydreation (if does not take PO, may start IV). Code(s): N18.9 - CHRONIC KIDNEY DISEASE, UNSPECIFIED (4) CVA (cerebral vascular accident) Assessment/Plan: CVA; slow, at times repetitive speech, though appropriate; pt's sister says "executive center" of brain was affected by CVA. F/u workup. Code(s): I63.9 - CEREBRAL INFARCTION, UNSPECIFIED (5) HLD (hyperlipidemia) Assessment/Plan: on statin Code(s): E78.5 - HYPERLIPIDEMIA, UNSPECIFIED (6) HTN (hypertension) Code(s): I10 - ESSENTIAL (PRIMARY) HYPERTENSION (7) Hypoglycemia Code(s): E16.2 - HYPOGLYCEMIA, UNSPECIFIED (8) Sleep apnea Assessment/Plan: sleep studies Code(s): G47.30 - SLEEP APNEA, UNSPECIFIED (9) Depression Code(s): F32.9 - MAJOR DEPRESSIVE DISORDER, SINGLE EPISODE, UNSPECIFIED (10) [place] cardiac risk >20% in next 10 years Assessment/Plan: Stress MIBI + For conronary angiogram. Discussed with both him and his sister. Diet, exercise, weight loss discussed in detail. Code(s): Z91.89 - OTH PERSONAL RISK FACTORS, NOT ELSEWHERE CLASSIFIED (11) Elevated LFTs Code(s): R79.89 - OTHER SPECIFIED ABNORMAL FINDINGS OF BLOOD CHEMISTRY (12) CHF (congestive heart failure) Assessment/Plan: Congestive changes on CXR. dyspnea on exertion; chest discomfort. F/u BNP; serial TNIs. ECHO: diastolic dysfunction; normal LVEF. Stress test: + / possible multi-territorial. Code(s): I50.9 - HEART FAILURE, UNSPECIFIED (13) Renal cancer Assessment/Plan: Per pt's sister, Alyssa, pt underwent left nephrectomy 01/[address] [facility]. A Pet scan reportedly showed malignancy extending into the IVC, though right kidney [id number] WNL; a repeat PET scan is planned fo 08/2017. Await records; as noted by Dr. Dang, ?outline of left kidney noted on US. Code(s): C64.9 - MALIGNANT NEOPLASM OF UNSP KIDNEY, EXCEPT RENAL PELVIS (14) Pulmonary embolism Assessment/Plan: Pt's sister says he is on apixaban for hx of CVA and PEs. Await full records. Code(s): I26.99 - OTHER PULMONARY EMBOLISM WITHOUT ACUTE COR PULMONALE
[2017-06-04] MEDS ORDERED: TICAGRELOR 90 MG TABLET PO SCH (15:15)
[2017-06-04] MEDS: ISOSORBIDE MONONITRATE 30 MG TAB.SR.24H (FP) PO SCH (20:42)
[2017-06-04] MEDS: METOPROLOL TARTRATE 25 MG TABLET (FP) PO SCH (21:49)
[2017-06-04] MEDS: ATORVASTATIN CA 20 MG TABLET (FP) PO SCH (21:49)
[2017-06-04] MEDS: INSULIN DETEMIR 100 UNITS/ML MDV SQ SCH (21:49)
[2017-06-05] MEDS ORDERED: PT OWN MED DRAWER 7, Y5N ONE ×2 (06:23→09:31)
[2017-06-05] MEDS: INSULIN SLIDING SCALE (NOVOLOG) 1 VIAL SQ SCH ×3 (06:26→16:37)
[2017-06-05] MEDS: HEPARIN SOD,PORK IN 0.45% NACL 25,000 UNIT/500 ML INFUS.BAG IVPB SCH (06:26)
[2017-06-05 07:38] LABS: HEMATOCRIT 29.7 % (35.4-49); MCH 26.9 pg (25.7-33.7); MCHC 33.8 g/dl (32.0-35.9); MEAN CELL VOLUME 79.6 fl (80-96); MEAN PLT VOLUME 7.3 fl (7.5-11.1); PLATELET COUNT 233 K/MM3 (134-434); RBC 3.73 M/mm3 (4.00-5.60); RDW 17.6 % (11.9-15.9); WHITE BLOOD COUNT 6.6 K/mm3 (4.0-10.0)
[2017-06-05 08:44] LABS: ANION GAP 6 (8-16); BLOOD UREA NITROGEN 35 mg/dL (7-18); CALCIUM 8.7 mg/dL (8.5-10.1); CHLORIDE 109 mmol/L (98-107); CO2 23 mmol/L (21-32); GLUCOSE,RANDOM 150 mg/dL (74-106); POTASSIUM 4.6 mmol/L (3.5-5.1); SODIUM 138 mmol/L (136-145)
[2017-06-05 08:46] LABS: CREATININE 1.5 mg/dL (0.7-1.3)
[2017-06-05] MEDS: ESCITALOPRAM OXALATE 20 MG TABLET (FP) PO SCH (09:39)
[2017-06-05] MEDS: METOPROLOL TARTRATE 25 MG TABLET (FP) PO SCH (09:39)
[2017-06-05] MEDS: ASPIRIN COATED 81 MG TABLET.EC PO SCH (09:39)
[2017-06-05] MEDS: ISOSORBIDE MONONITRATE 30 MG TAB.SR.24H (FP) PO SCH (09:39)
[2017-06-05] MEDS ORDERED: TICAGRELOR 90 MG TABLET PO SCH (10:00)
--- NOTE | 2017-06-05 11:44 | PN ---
Progress Note, Physician History of Present Illness: Mr. Wang is a 66 yr old white man with PMH of nephrectomy ("kidney ablation"), ? renal tumor ("they are discussing chemoterapy with me"),, diabetes, CVA ( about 13 yrs ago; ?no residual defects), CAD (hx if "[place]"-->6 coronary stents, followed by CABG 13 yrs ago at [facility]), sleep apnea (noncompliant to CPAP), obesity, sedentary lifestyle,who presents with a chief complaint of lethargy and not responding well today. Sugar measurement 48 at home; given candy and juice, went to 118. No complaints at this time. Denies fevers, chills, n/v/d. Pt states that, a few months ago, he bagan having a 4/10 central chest ache; it occurred twice on awakening, and lasted a few minutes. When he walks, he feels "deconditioned" (easily dyspneic; ?accompanying chest ache(). Former cigarettes (quit many years ago). Several glasses of wine daily for many years (quit a few months ago). - History Source History Provided By: Patient, Medical Record Limitations to Obtaining History: No Limitations - Current Medication List Current Medications: Active Medications Aspirin (Ecotrin -) 81 mg PO DAILY [facility] Last Admin: 06/05/17 09:39 Dose: 81 mg Atorvastatin Calcium (Lipitor -) 20 mg PO HS [facility] Last Admin: 06/04/17 21:49 Dose: 20 mg Escitalopram Oxalate (Lexapro -) 20 mg PO DAILY [facility] Last Admin: 06/05/17 09:39 Dose: 20 mg Heparin Sodium (Porcine) (Heparin -) 5,000 unit IVPUSH PRN PRN PRN Reason: APPT (SECONDS) <40 Last Admin: 06/04/17 22:10 Dose: 5,000 unit Heparin Sodium (Porcine) (Heparin -) 1,000 unit IVPUSH PRN PRN PRN Reason: APPT (SECONDS) 40-49 HEPARIN SOD,PORK IN 0.45% NACL (Heparin-1/2ns 25,000 Units/500) 25,000 unit in 500 mls @ 16 mls/hr IVPB TITR [facility]; 800 UNITS/HR PRN Reason: Protocol Last Admin: 06/05/17 06:26 Dose: 950 units/hr, 19 mls/hr Insulin Aspart (Novolog Vial Sliding Scale -) 1 vial SQ TIDAC [facility] PRN Reason: Protocol Last Admin: 06/05/17 06:26 Dose: Not Given Insulin Detemir (Levemir Vial) 10 units SQ HS [facility] Last Admin: 06/04/17 21:49 Dose: 10 units Isosorbide Mononitrate (Imdur -) 30 mg PO DAILY [facility] Last Admin: 06/05/17 09:39 Dose: 30 mg Metoprolol Tartrate (Lopressor -) 25 mg PO BID [facility] Last Admin: 06/05/17 09:39 Dose: 25 mg Ticagrelor (Brilinta -) 90 mg PO BID [facility] Last Admin: 06/05/17 09:39 Dose: 90 mg - Objective Vital Signs: Vital Signs Temperature 98.6 F 06/05/17 05:00 Pulse Rate 75 06/05/17 05:00 Respiratory Rate 18 06/05/17 05:00 Blood Pressure 109/57 06/05/17 05:00 O2 Sat by Pulse Oximetry (%) 95 06/05/17 04:00 Eyes: Yes: WNL, Conjunctiva Clear, EOM Intact HENT: Yes: WNL, Atraumatic, Normocephalic Neck: Yes: WNL, Supple, Trachea Midline Cardiovascular: Yes: WNL, Regular Rate and Rhythm Respiratory: Yes: WNL, Regular, CTA Bilaterally Gastrointestinal: Yes: WNL, Normal Bowel Sounds Genitourinary: Yes: WNL Musculoskeletal: Yes: WNL Extremities: Yes: WNL Edema: No Integumentary: Yes: WNL Neurological: Yes: WNL, Alert, Oriented ...Motor Strength: WNL Psychiatric: Yes: WNL Labs: CBC, BMP 06/05/17 07:04 06/05/17 07:04 Assessment/Plan - Problems (1) Diabetes Code(s): E11.9 - TYPE 2 DIABETES MELLITUS WITHOUT COMPLICATIONS (2) CAD (coronary artery disease) of bypass graft Assessment/Plan: Hx [place]-->6 cor stents, followed by CABG about 13 yrs ago. Since then, he has never had a stress test or angiogram; he thought that CABG would fix the heart for life. He used to walk [address] miles from [facility] to his home in [place] [facility] most working days, and felt very well. However, he stopped this more than 5 yrs ago, and has been quite sedentary since. TNI serially (1st 0.02). ECHO: normal LVEF. Stress MIBI: (Lexiscan): moderate areas of moderately intense ischemia of the anterior, anteroapical, inferoapical, and interolateral underwood, with mildl reduced LVEF of 43%. Plans: Start ticagrelor 180 mg PO now, then 90 mg bid (pt had a rash years ago on clopidogrel, and was told not to take it anymore; discussed with Dr. Bo and samson here: ticagrelor is structurally distinct from clopidogrel, and may be safely started). TNI < 0.02 x 2 TSH 2.1 total cholesterol < 100 mg/dL. Code(s): I25.810 - ATHEROSCLEROSIS OF CABG W/O ANGINA PECTORIS (3) CKD (chronic kidney disease) Assessment/Plan: Improving cratinine clearance. Suggest gentle hydreation (if does not take PO, may start IV). Code(s): N18.9 - CHRONIC KIDNEY DISEASE, UNSPECIFIED (4) CVA (cerebral vascular accident) Assessment/Plan: CVA; slow, at times repetitive speech, though appropriate; pt's sister says "executive center" of brain was affected by CVA. F/u workup. Code(s): I63.9 - CEREBRAL INFARCTION, UNSPECIFIED (5) HLD (hyperlipidemia) Assessment/Plan: on statin Code(s): E78.5 - HYPERLIPIDEMIA, UNSPECIFIED (6) HTN (hypertension) Code(s): I10 - ESSENTIAL (PRIMARY) HYPERTENSION (7) Hypoglycemia Code(s): E16.2 - HYPOGLYCEMIA, UNSPECIFIED (8) Sleep apnea Assessment/Plan: sleep studies Code(s): G47.30 - SLEEP APNEA, UNSPECIFIED (9) Depression Code(s): F32.9 - MAJOR DEPRESSIVE DISORDER, SINGLE EPISODE, UNSPECIFIED (10) [place] cardiac risk >20% in next 10 years Assessment/Plan: Stress MIBI + For conronary angiogram. Discussed with both him and his sister. Diet, exercise, weight loss discussed in detail. Code(s): Z91.89 - OTH PERSONAL RISK FACTORS, NOT ELSEWHERE CLASSIFIED (11) Elevated LFTs Code(s): R79.89 - OTHER SPECIFIED ABNORMAL FINDINGS OF BLOOD CHEMISTRY (12) CHF (congestive heart failure) Assessment/Plan: Congestive changes on CXR. dyspnea on exertion; chest discomfort. F/u BNP; serial TNIs. ECHO: diastolic dysfunction; normal LVEF. Stress test: + / possible multi-territorial. Code(s): I50.9 - HEART FAILURE, UNSPECIFIED (13) Renal cancer Assessment/Plan: Per pt's sister, Alyssa, pt underwent left nephrectomy 01/2017 at [facility]. A Pet scan reportedly showed malignancy extending into the IVC, though right kidney [id number] WNL; a repeat PET scan is planned fo 08/2017. Await records; as noted by Dr. Dang, ?outline of left kidney noted on US. Code(s): C64.9 - MALIGNANT NEOPLASM OF UNSP KIDNEY, EXCEPT RENAL PELVIS (14) Pulmonary embolism Assessment/Plan: Pt's sister says he is on apixaban for hx of CVA and PEs. Await full records. Code(s): I26.99 - OTHER PULMONARY EMBOLISM WITHOUT ACUTE COR PULMONALE
--- NOTE | 2017-06-05 12:38 | PN ---
Progress Note, Physician History of Present Illness: Pt seen and examined at bedside. He is awake and alert. He denies shortness of breath. - Current Medication List Current Medications: Active Medications Aspirin (Ecotrin -) 81 mg PO DAILY [facility] Last Admin: 06/05/17 09:39 Dose: 81 mg Atorvastatin Calcium (Lipitor -) 20 mg PO HS [facility] Last Admin: 06/04/17 21:49 Dose: 20 mg Escitalopram Oxalate (Lexapro -) 20 mg PO DAILY [facility] Last Admin: 06/05/17 09:39 Dose: 20 mg Heparin Sodium (Porcine) (Heparin -) 5,000 unit IVPUSH PRN PRN PRN Reason: APPT (SECONDS) <40 Last Admin: 06/04/17 22:10 Dose: 5,000 unit Heparin Sodium (Porcine) (Heparin -) 1,000 unit IVPUSH PRN PRN PRN Reason: APPT (SECONDS) 40-49 HEPARIN SOD,PORK IN 0.45% NACL (Heparin-1/2ns 25,000 Units/500) 25,000 unit in 500 mls @ 16 mls/hr IVPB TITR [facility]; 800 UNITS/HR PRN Reason: Protocol Last Admin: 06/05/17 06:26 Dose: 950 units/hr, 19 mls/hr Insulin Aspart (Novolog Vial Sliding Scale -) 1 vial SQ TIDAC [facility] PRN Reason: Protocol Last Admin: 06/05/17 06:26 Dose: Not Given Insulin Detemir (Levemir Vial) 10 units SQ HS [facility] Last Admin: 06/04/17 21:49 Dose: 10 units Isosorbide Mononitrate (Imdur -) 30 mg PO DAILY [facility] Last Admin: 06/05/17 09:39 Dose: 30 mg Metoprolol Tartrate (Lopressor -) 25 mg PO BID [facility] Last Admin: 06/05/17 09:39 Dose: 25 mg Ticagrelor (Brilinta -) 90 mg PO BID [facility] Last Admin: 06/05/17 09:39 Dose: 90 mg - Objective Vital Signs: Vital Signs Temperature 98.6 F 06/05/17 05:00 Pulse Rate 75 06/05/17 05:00 Respiratory Rate 18 06/05/17 05:00 Blood Pressure 109/57 06/05/17 05:00 O2 Sat by Pulse Oximetry (%) 95 06/05/17 04:00 Constitutional: Yes: Calm Eyes: Yes: Conjunctiva Clear HENT: Yes: Atraumatic Neck: Yes: Supple Cardiovascular: Yes: S1, S2 Respiratory: Yes: CTA Bilaterally Gastrointestinal: Yes: Soft Genitourinary: Yes: WNL Musculoskeletal: Yes: WNL Edema: No Neurological: Yes: Oriented Psychiatric: Yes: Oriented Labs: CBC, BMP 06/05/17 07:04 06/05/17 07:04 Problem List - Problems (1) CKD (chronic kidney disease) Code(s): N18.9 - CHRONIC KIDNEY DISEASE, UNSPECIFIED (2) MEL (acute kidney injury) Code(s): N17.9 - ACUTE KIDNEY FAILURE, UNSPECIFIED (3) CAD (coronary artery disease) of bypass graft Code(s): I25.810 - ATHEROSCLEROSIS OF CABG W/O ANGINA PECTORIS (4) CVA (cerebral vascular accident) Code(s): I63.9 - CEREBRAL INFARCTION, UNSPECIFIED (5) DVT prophylaxis Code(s): CTE0917 - (6) HTN (hypertension) Code(s): I10 - ESSENTIAL (PRIMARY) HYPERTENSION Assessment/Plan Current Medications Generic Name Dose Route Start Last Admin Trade Name Freq PRN Reason Stop Dose Admin Aspirin 81 mg 06/03/17 16:45 06/05/17 09:39 Ecotrin - PO 81 mg DAILY [facility] Administration Atorvastatin Calcium 20 mg 06/03/17 22:00 06/04/17 21:49 Lipitor - PO 20 mg HS [facility] Administration Escitalopram Oxalate 20 mg 06/03/17 10:00 06/05/17 09:39 Lexapro - PO 20 mg DAILY [facility] Administration Heparin Sodium (Porcine) 5,000 unit 06/04/17 07:00 06/04/17 22:10 Heparin - IVPUSH 5,000 unit PRN PRN Administration APPT (SECONDS) <40 Heparin Sodium (Porcine) 1,000 unit 06/04/17 07:00 Heparin - IVPUSH PRN PRN APPT (SECONDS) 40-49 HEPARIN SOD,PORK IN 0.45% NACL 25,000 unit in 500 mls @ 16 mls/hr 06/04/17 07: 00 06/05/17 06:26 Heparin-1/2ns 25,000 Units/500 IVPB 950 units/hr TITR [facility] 19 mls/hr Protocol Administration 800 UNITS/HR Insulin Aspart 1 vial 06/03/17 07:00 06/05/17 06:26 Novolog Vial Sliding Scale - SQ Not Given TIDAC [facility] Protocol Insulin Detemir 10 units 06/03/17 22:00 06/04/17 21:49 Levemir Vial SQ 10 units HS [facility] Administration Isosorbide Mononitrate 30 mg 06/04/17 20:45 06/05/17 09:39 Imdur - PO 30 mg DAILY [facility] Administration Metoprolol Tartrate 25 mg 06/04/17 22:00 06/05/17 09:39 Lopressor - PO 25 mg BID [facility] Administration Ticagrelor 90 mg 06/05/17 10:00 06/05/17 09:39 Brilinta - PO 90 mg BID [facility] Administration Impression 1. 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 MEL possibly from dehydration if supervisor powdered sugar is elevated from baseline 3. DM 4. hypoglycemia 5. hx CVA 6. HLD 7. positive stress test Plan - repeat labs in am - likely going for cath tomorrow - will start fluids and mucomyst tonight - cardiology follow up - pt does have risk of JEROME Dr Zarate
--- NOTE | 2017-06-05 13:13 | PN ---
Physical Exam: SUBJECTIVE: Patient seen and examined No acute events overnight. Patient nauseous before breakfast this morning. Had 1 episode of emesis this AM. Patient denies chest pain. Awaiting transfer for cardiac cath. OBJECTIVE: Vital Signs Period Temp Pulse Resp BP Sys/Arreguin Pulse Ox Last 24 Hr 97.8 F-99.1 F 75-103 18-20 109-163/57-91 95-97 GENERAL: The patient is obese, awake, alert, and fully oriented, in no acute distress. LUNGS: Decreased Breath sounds b/l, clear to auscultation bilaterally, no wheezes, no crackles, no accessory muscle use. HEART: Regular rate and rhythm, S1, S2 without murmur, rub or gallop. ABDOMEN: obese, Soft, nontender, nondistended, normoactive bowel sounds, no guarding, no rebound, no hepatosplenomegaly, no masses. EXTREMITIES: 2+ pulses, warm, well-perfused, no edema. Laboratory Results - last 24 hr 06/04/17 06/04/17 06/04/17 19:15 21:00 21:48 WBC RBC Hgb Hct MCV MCH MCHC RDW Plt Count MPV PTT (Actin FS) 35.7 H Sodium Potassium Chloride Carbon Dioxide Anion Gap BUN Creatinine POC Glucometer 170 Random Glucose Calcium Troponin I < 0.02 06/05/17 06/05/17 06/05/17 03:45 05:27 07:04 WBC 6.6 RBC 3.73 L Hgb 10.0 L Hct 29.7 L MCV 79.6 L MCH 26.9 MCHC 33.8 RDW 17.6 H Plt Count 233 MPV 7.3 L PTT (Actin FS) 58.6 H D Sodium Potassium Chloride Carbon Dioxide Anion Gap BUN Creatinine POC Glucometer 164 Random Glucose Calcium Troponin I 06/05/17 06/05/17 07:04 07:04 WBC RBC Hgb Hct MCV MCH MCHC RDW Plt Count MPV PTT (Actin FS) 46.3 H Sodium 138 Potassium 4.6 Chloride 109 H Carbon Dioxide 23 Anion Gap 6 L BUN 35 H Creatinine 1.5 H POC Glucometer Random Glucose 150 H Calcium 8.7 Troponin I Active Medications Generic Name Dose Route Start Last Admin Trade Name Freq PRN Reason Stop Dose Admin Acetylcysteine 600 mg 06/05/17 22:00 Mucomyst 20 Oral / Inh Use Only* PO 06/07/17 10:01 Q12H [facility] Aspirin 81 mg 06/03/17 16:45 06/05/17 09:39 Ecotrin - PO 81 mg DAILY MARY Administration Atorvastatin Calcium 20 mg 06/03/17 22:00 06/04/17 21:49 Lipitor - PO 20 mg HS MARY Administration Escitalopram Oxalate 20 mg 06/03/17 10:00 06/05/17 09:39 Lexapro - PO 20 mg DAILY MARY Administration Heparin Sodium (Porcine) 5,000 unit 06/04/17 07:00 06/04/17 22:10 Heparin - IVPUSH 5,000 unit PRN PRN Administration APPT (SECONDS) <40 Heparin Sodium (Porcine) 1,000 unit 06/04/17 07:00 Heparin - IVPUSH PRN PRN APPT (SECONDS) 40-49 HEPARIN SOD,PORK IN 0.45% NACL 25,000 unit in 500 mls @ 16 mls/hr 06/04/17 07: 00 06/05/17 06:26 Heparin-1/2ns 25,000 Units/500 IVPB 950 units/hr TITR [facility] 19 mls/hr Protocol Administration 800 UNITS/HR Sodium Chloride 1,000 mls @ 75 mls/hr 06/06/17 00:01 Normal Saline - IV ASDIR [facility] Insulin Aspart 1 vial 06/03/17 07:00 06/05/17 06:26 Novolog Vial Sliding Scale - SQ Not Given TIDAC [facility] Protocol Insulin Detemir 10 units 06/03/17 22:00 06/04/17 21:49 Levemir Vial SQ 10 units HS [facility] Administration Isosorbide Mononitrate 30 mg 06/04/17 20:45 06/05/17 09:39 Imdur - PO 30 mg DAILY [facility] Administration Metoprolol Tartrate 25 mg 06/04/17 22:00 06/05/17 09:39 Lopressor - PO 25 mg BID [facility] Administration Ticagrelor 90 mg 06/05/17 10:00 06/05/17 09:39 Brilinta - PO 90 mg BID [facility] Administration ASSESSMENT/PLAN: This is a 66 year old male with a history of DM, htn, hld, cad s/p 6stent bypass , cva, renal Ca? s/p RT, admitted for hypoglycemia and acute kidney injury. #MEL: improving -baseline unknown, creatinine improving--1.5 today -renal US: left kidney altered echogen, possible 1.4cm left renal distrophic calcification vs non obstructing calculus, 2.7cm rt hypoech focus normal variant vs neoplasm; -hold nephrotoxic agents -renal consulted #chest pain: r/o ACS -stress test + for moderate reversible defect, will need cath. Pending transfer per cardiology to [place] tomorrow -tele -Echo-trace AR, trace DC, LV normal fxn -cardio consulted #Nausea/Vomiting -Resolved -Will continue to monitor -Avoiding anti-emetics 2/2 to prolong qtc #hypoglycemia/DM: resolved -cont ss BGM -levemir 10 sq hs #hx of CVA; cont eliquis #htn: cont metoprolol ; lasix and lisinopril on hold due to kidney injury DVT: eliquis Dispo: Pending transfer per cardiology Visit type - Emergency Visit Emergency Visit: Yes ED Registration Date: 06/05/17 Care time: The patient presented to the Emergency Department on the above date and was hospitalized for further evaluation of their emergent condition. - New Patient This patient is new to me today: No - Critical Care Critical Care patient: No
--- NOTE | 2017-06-05 13:51 | PN ---
Teaching Attending Note Name of Resident: Kevin Frausto ATTENDING PHYSICIAN STATEMENT I saw and evaluated the patient. I reviewed the resident's note and discussed the case with the resident. I agree with the resident's findings and plan as documented. SUBJECTIVE: OBJECTIVE: Vital Signs Period Temp Pulse Resp BP Sys/Arreguin Pulse Ox Last 24 Hr 97.8 F-99.1 F 75-103 18-20 109-163/57-91 95-97 Laboratory Results - last 24 hr 06/04/17 06/04/17 06/04/17 19:15 21:00 21:48 WBC RBC Hgb Hct MCV MCH MCHC RDW Plt Count MPV PTT (Actin FS) 35.7 H Sodium Potassium Chloride Carbon Dioxide Anion Gap BUN Creatinine POC Glucometer 170 Random Glucose Calcium Troponin I < 0.02 06/05/17 06/05/17 06/05/17 03:45 05:27 07:04 WBC 6.6 RBC 3.73 L Hgb 10.0 L Hct 29.7 L MCV 79.6 L MCH 26.9 MCHC 33.8 RDW 17.6 H Plt Count 233 MPV 7.3 L PTT (Actin FS) 58.6 H D Sodium Potassium Chloride Carbon Dioxide Anion Gap BUN Creatinine POC Glucometer 164 Random Glucose Calcium Troponin I 06/05/17 06/05/17 06/05/17 07:04 07:04 13:24 WBC RBC Hgb Hct MCV MCH MCHC RDW Plt Count MPV PTT (Actin FS) 46.3 H Sodium 138 Potassium 4.6 Chloride 109 H Carbon Dioxide 23 Anion Gap 6 L BUN 35 H Creatinine 1.5 H POC Glucometer 123 Random Glucose 150 H Calcium 8.7 Troponin I Current Medications Generic Name Dose Route Start Last Admin Trade Name Freq PRN Reason Stop Dose Admin Acetylcysteine 600 mg 06/05/17 22:00 Mucomyst 20 Oral / Inh Use Only* PO 06/07/17 10:01 Q12H MARY Aspirin 81 mg 06/03/17 16:45 06/05/17 09:39 Ecotrin - PO 81 mg DAILY MARY Administration Atorvastatin Calcium 20 mg 06/03/17 22:00 06/04/17 21:49 Lipitor - PO 20 mg HS MARY Administration Escitalopram Oxalate 20 mg 06/03/17 10:00 06/05/17 09:39 Lexapro - PO 20 mg DAILY MARY Administration Heparin Sodium (Porcine) 5,000 unit 06/04/17 07:00 06/04/17 22:10 Heparin - IVPUSH 5,000 unit PRN PRN Administration APPT (SECONDS) <40 Heparin Sodium (Porcine) 1,000 unit 06/04/17 07:00 Heparin - IVPUSH PRN PRN APPT (SECONDS) 40-49 HEPARIN SOD,PORK IN 0.45% NACL 25,000 unit in 500 mls @ 16 mls/hr 06/04/17 07: 00 06/05/17 06:26 Heparin-1/2ns 25,000 Units/500 IVPB 950 units/hr TITR MARY 19 mls/hr Protocol Administration 800 UNITS/HR Sodium Chloride 1,000 mls @ 75 mls/hr 06/06/17 00:01 Normal Saline - IV ASDIR [facility] Insulin Aspart 1 vial 06/03/17 07:00 06/05/17 13:11 Novolog Vial Sliding Scale - SQ Not Given TIDAC [facility] Protocol Insulin Detemir 10 units 06/03/17 22:00 06/04/17 21:49 Levemir Vial SQ 10 units HS MARY Administration Isosorbide Mononitrate 30 mg 06/04/17 20:45 06/05/17 09:39 Imdur - PO 30 mg DAILY MARY Administration Metoprolol Tartrate 25 mg 06/04/17 22:00 06/05/17 09:39 Lopressor - PO 25 mg BID MARY Administration Ticagrelor 90 mg 06/05/17 10:00 06/05/17 09:39 Brilinta - PO 90 mg BID MARY Administration ASSESSMENT AND PLAN: This is a 66 year old man with a history of type 2 DM, HTN, hyperlipidemia, CAD , CABG, CVA, left nephrectomy who presented to the ED with hypoglycemia. 1. Chest pain, history of CAD and CABG - Stress test shows moderate anterior and anteroapical ischemia, moderate inferior apical ischemia with small infarct, wall motion abnormalities, EF 43% - Continue aspirin, Lopressor, Lipitor, Imdur, Brilinta, heparin IV drip - Plan for cath at [facility] tomorrow 2. Acute kidney injury - Baseline not known - Lasix, lisinopril held - IV fluid and Mucomyst as per nephrology 3. HTN - Continue Lopressor - Lasix, lisinopril held secondary to MEL 4. Hyperlipidemia - Continue Lipitor 5. History of CVA - Eliquis held and heparin IV drip started 6. Type 2 DM - Continue Levemir, Novolog sliding scale - Prandin held 7. History of left nephrectomy 8. Anemia, microcytic - Check iron studies, stool occult blood as patient will need to be on anti- platelet therapy
[2017-06-05 14:30] VITALS: BP 113/68; PULSE 68; TEMP 98
[2017-06-05] MEDS ORDERED: ACETYLCYSTEINE 20% 200MG/ML 30 ML VIAL *FOR ORAL / INH USE ONLY PO SCH (22:00)
[2017-06-06] MEDS ORDERED: SODIUM CHLORIDE 1,000 ML IV SCH (00:01)
--- NOTE | 2017-06-07 10:08 | EKG ---
Test Reason : Blood Pressure : / mmHG Vent. Rate : 095 BPM Atrial Rate : 095 BPM P-R Int : 192 ms QRS Dur : 080 ms QT Int : 392 ms P-R-T Axes : 063 -71 045 degrees QTc Int : 492 ms NORMAL SINUS RHYTHM LEFT AXIS DEVIATION POSSIBLE INFERIOR INFARCT (CITED ON OR BEFORE 01-JUN-2017) POSSIBLE ANTEROLATERAL INFARCT , AGE UNDETERMINED ABNORMAL ECG WHEN COMPARED WITH ECG OF 01-JUN-2017 15:45, NO SIGNIFICANT CHANGE WAS FOUND Confirmed by NARCISO TERRELL, TERRA ([id number]) on 06/07/2017 10:08:31 AM Referred By: Confirmed By:TERRA STUART MD
== END 2017-06-05 17:27 | disposition short-term general hospital (02) | DRG 683 ==
LOC: JER 20:15 → JERBED 23:46 → UNDOADMOB 06-01 00:19 → J6S 06-01 02:53 → J4W 06-01 20:27 → OBSVTOIN 06-05 09:23
PROVIDERS: ADMIT Internal Medicine; ATTEND Internal Medicine
DX: N17.9 Acute kidney failure, unspecified (principal); I13.0 Hypertensive heart and chronic kidney disease with heart failure and stage 1 through stage 4 chronic kidney disease, or unspecified chronic kidney disease; I50.30 Unspecified diastolic (congestive) heart failure; E11.649 Type 2 diabetes mellitus with hypoglycemia without coma; E86.0 Dehydration; I25.10 Atherosclerotic heart disease of native coronary artery without angina pectoris; Z86.73 Personal history of transient ischemic attack (TIA), and cerebral infarction without residual deficits; E78.5 Hyperlipidemia, unspecified; R07.9 Chest pain, unspecified; D50.9 Iron deficiency anemia, unspecified; Z98.61 Coronary angioplasty status; Z95.1 Presence of aortocoronary bypass graft; E11.22 Type 2 diabetes mellitus with diabetic chronic kidney disease; N18.9 Chronic kidney disease, unspecified
CPT/HCPCS: 36415; 71045-TC-FY; 71046-TC-FY; 76775-TC; 78452-TC; 80048; 80053; 80061; 81003; 82436; 82550; 82570; 82962; 83036; 83721; 84133; 84300; 84443; 84484; 85025; 85027; 85730; 87086; 93005; 93010; 93017; 93306-TC; 99282-25; A9502; G0378; J1644; J2785

== ENCOUNTER 2018-05-01 12:15 | Emergency (ER) | payer OTHER, MEDICARE ==
--- NOTE | 2018-05-01 13:23 | PDOC ---
History of Present Illness - General Chief Complaint: Nasal Bleeding Stated Complaint: NOSE BLEED Time Seen by Provider: 05/01/18 13:12 History Source: Patient, Spouse Exam Limitations: No Limitations - History of Present Illness Initial Comments: HPI: 67 y/o male presenting to [facility] ER complaining of a nose bleed. Started spontaneously this morning at approx. 10am. reports observing heavy bleeding from the left nare. Bleeding began to slow on arrival to the ED and stopped prior to this interview. Pt denies lightheadedness, dizziness, SOB, or chest pain. Takes ASA, Brilinta, and Eliquis. Denies trauma to the area. PCP: Dr. Fifi Porter Manager Packaging: Dr. Haas Oncologist: Dr. Renee Alfonso Medical Hx: - HTN - HLD - DM (glargine,replaganide) - CVA (2011) - CAD s/p Six vessel Bypass (O2) - s/p L Nephrectomy (01/2017) with cancerous biopsy. On unknown infusion therapy. Past History - Past Medical History Allergies/Adverse Reactions: Allergies Allergy/AdvReac Type Severity Reaction Status Date / Time clopidogrel [From Plavix] Allergy Verified 05/01/18 12:44 Home Medications: Ambulatory Orders Apixaban [Eliquis -] 2.5 mg PO BID 05/31/17 Atorvastatin Ca [Lipitor] 20 mg PO HS 05/31/17 Escitalopram Oxalate [Lexapro -] 20 mg PO DAILY 05/31/17 Furosemide [Lasix -] 20 mg PO ASDIR 05/31/17 Insulin Glargine,Hum.rec.anlog [Basaglar Deni U-100] 10 unit SQ HS 05/31/17 Repaglinide [Prandin -] 2.5 mg PO TIDCM 05/31/17 Amlodipine Besylate [Norvasc -] 2.5 mg PO DAILY 05/01/18 Aspirin 81 mg PO ASDIR 05/01/18 Famotidine [Pepcid] 20 mg PO BID 05/01/18 Isosorbide Mononitrate [Imdur -] 60 mg PO DAILY 05/01/18 Levothyroxine [Synthroid -] 25 mcg PO DAILY 05/01/18 Metoprolol Succinate [Toprol Xl] 75 mg PO BID 05/01/18 Ticagrelor [Brilinta] 90 mg PO DAILY 05/01/18 Cardiac Disorders: Yes (sextupil bypass 2001) CVA: Yes (2011) COPD: No Diabetes: Yes Disorders: Yes (left kidney removed 01/2017) HTN: Yes Hypercholesterolemia: Yes - Surgical History Cardiac Surgery: Yes - Immunization History Immunization Up to Date: Yes - Suicide/Smoking/Psychosocial Hx Smoking History: Never smoked Have you smoked in the past 12 months: No Hx Alcohol Use: No Drug/Substance Use Hx: No Substance Use Type: None Review of Systems - Review of Systems Able to Perform ROS?: Yes Comments:: In addition to that documented in the HPI above, the additional ROS was obtained : Constitutional: Denies fevers or chills Head/ENT: Per HPI CV: Denies chest pain Resp: Denies SOB GI: Denies vomiting or diarrhea : Denies dysuria, hematuria, or urinary frequency *Physical Exam - Physical Exam Comments: Constitutional: Well-developed, well-nourished male in no acute distress or obvious discomfort. Found semi-fowlers on hospital bed. Alert and oriented x4. Answered all questions appropriately and completely. Speech was non-labored, non -pressured. Head: Normocephalic. No obvious external signs of trauma. Eyes: Sclerae white. Ears: Hearing grossly intact. Nose: Large amount of clotted blood in left nare. No active bleeding anterior bleeding. No bleeding noted in right nare. Throat: Small amount of dried blood in posterior oropharynx. Area difficult to visualize. Neck: Supple, trachea is midline. Cardiovascular / Chest: Regular rate and regular rhythm. No murmur, rubs, clicks, or gallops. Peripheral pulses: radial pulses full. Respiratory: Breathing unlabored. Equal chest rise and fall. Clear to auscultation bilaterally. No stridor, no wheezing, no rhonchi. Neuro: Alert and oriented. Moving all four extremities spontaneously. Skin: Warm, dry, and intact. Psych: Affect: appropriate. Mood: normal. Medical Decision Making - Medical Decision Making *Reviewed vital signs, nursing notes, and prior visit documentation (if available). 67 y/o with spontaneous, non-traumatic epistaxis. Anticoagulated on multiple medications. No systemic signs or symptoms. Vitals unremarkable for hypotension or tachycardia. Physical exam as described above. Will evaluate further after evacuation of clotted material. Clot removed from L nare. Trace bleeding noted along anterior septal wall. Will administer Afrin and topical TXA. Pt reassessed after Afrin and topical TXA administration. No additional bleeding observed in R or L nare. Pt continues to deny lightheadedness or dizziness. Discussed physical exam findings with pt. Answered all questions. Provided return precautions. Pt expressed verbal understanding and agreement with plan to discharge home with outpatient follow up. Encouraged pt to call his cardiologists office to inform of todays event. *DC/Admit/Observation/Transfer Diagnosis at time of Disposition: Nasal bleeding - Discharge Dispostion Disposition: HOME Condition at time of disposition: Good Decision to Admit order: No - Referrals - Patient Instructions Additional Instructions: You were seen today for a persistent nose bleed. This is a known side effect of your blood thinning medication. Do not stick anything up your nose. If the bleeding re-occurs, apply direct pressure for 15-20 minutes. Go to the nearest emergency department if you experience further heavy bleeding that does not resolve with direct pressure. Call and let your pen or pencil assembly machine operator known you had this episode today. Continue taking your home medications as prescribed by your physicians. No changes were made in your regimen today. Print Language: THAI - Post Discharge Activity
[2018-05-01] MEDS ORDERED: OXYMETAZOLINE 0.05% NASAL SOLUTION 15 ML BOTTLE NS ONE (13:46)
[2018-05-01] MEDS ORDERED: TRANEXAMIC ACID 1000 MG/10 ML VIAL IVPUSH ONE (13:46)
[2018-05-01] MEDS ORDERED: TRANEXAMIC ACID 1000 MG/10 ML VIAL ONE (13:51)
--- NOTE | 2018-05-01 14:54 | PDOC ---
Attending Attestation - Resident Resident Name: LuceroRiki - ED Attending Attestation I have performed the following: I have examined & evaluated the patient, The case was reviewed & discussed with the resident, I agree w/resident's findings & plan - HPI HPI: 05/01/18 14:51 HPI 67 Y M, PMH of sextupil bypass, CVA, DM, left kidney resection, HTN, and hypercholesterolemia, presenting with left nare epistaxis since 10AM today. No digital manipulation or nose blowing or recent respiratory infections/nasal congestion. Prior history of epistaxis, usually self resolves. No cough or congestion, respiratory distress, cp or dizziness. Allergies: NKA Past Medical History: CVA, DM, HTN, and hypercholesterolemia Social history: Lives with family. No smoking. No alcohol. No illicit drugs. Surgical history: Sextupil bypass (2001) and left kidney resection - Physicial Exam PE: 05/01/18 14:51 NAD, well appearing, PERRL, EOMI, MMM, nl conjunctiva, anicteric; left nare with large blood clot, when removed - anterior septum with punctate area of erythema, no active oozing or bleeding. oropharynx clear. normal phonation. neck supple. lungs clear, RRR, abdomen soft nontender. MALIK x4, no focal neuro deficits. No peripheral edema. normal color for ethnicity, WWP. - Medical Decision Making 05/01/18 14:51 History and physical examination as documented. Vital signs reviewed, within normal limits. Left naris epistaxis controlled with topical Afrin sprays. Large clot removed. Topical TXA placed with gauze to stop the bleeding. No further bleeding episodes while emergency department. Maintaining his airway, breathing comfortably. follow up with ENT as an outpatient and PCP first epistaxis. Avoid nose blowing or digital manipulation. Afrin sprays twice a day as needed. Pt to be discharged in stable condition. Patient and family made aware of impression and plan, return precautions discussed (including but not limited to worsening pain or symptoms), fevers, or signs of infection, chest pain, respiratory distress, inability to tolerate oral intake, dehydration, syncope, or neurologic changes). Follow up with PMD and/or specialist as recommended, follow up information provided, take medications as instructed for duration of time. continue with supportive care, avoid triggers and precipitants. All questions answered to patient's satisfaction and expressed understanding and comfort with this. Patient does not suffer from an acute life-threatening medical condition at this time she is safe for outpatient follow-up. 05/01/18 14:54 <Martina Graf - Last Filed: 05/01/18 14:51> - Medical Decision Making Documentation prepared by MARIANA Goodrich, acting as medical anthropology director for Martina Graf MD. 05/01/18 15:13 <Gabriella Brown - Last Filed: 05/01/18 15:13>
[2018-05-01 15:26] VITALS: BP 130/75; PULSE 72; TEMP 97.9
== END 2018-05-01 15:48 | disposition home or self-care (01) ==
LOC: JER 12:15
PROC: 3E033GC Introduction of Other Therapeutic Substance into Peripheral Vein, Percutaneous Approach (ICD-10-PCS; principal; 2018-05-01)
PROC: 093K7ZZ Control Bleeding in Nasal Mucosa and Soft Tissue, Via Natural or Artificial Opening (ICD-10-PCS; 2018-05-01)
DX: R04.0 Epistaxis (principal); I25.10 Atherosclerotic heart disease of native coronary artery without angina pectoris; I10 Essential (primary) hypertension; Z95.1 Presence of aortocoronary bypass graft; E11.9 Type 2 diabetes mellitus without complications; Z79.84 Long term (current) use of oral hypoglycemic drugs; Z86.73 Personal history of transient ischemic attack (TIA), and cerebral infarction without residual deficits; Z79.01 Long term (current) use of anticoagulants; E78.00 Pure hypercholesterolemia, unspecified; Z90.5 Acquired absence of kidney
CPT/HCPCS: 99282-25

== ENCOUNTER 2018-05-25 12:00 | Observation (INO) | payer OTHER, MEDICARE ==
--- NOTE | 2018-05-25 12:41 | PDOC ---
History of Present Illness - General Chief Complaint: Nasal Bleeding Stated Complaint: EPISTAXIS Time Seen by Provider: 05/25/18 12:16 History Source: Patient, Family, Old Records Exam Limitations: No Limitations - History of Present Illness Initial Comments: HPI: 67 y/o male presenting to [facility] ER complaining of a nose bleed. Caregiver went in to pts bedroom this morning and found the pt covered in blood as well as red tinged emesis. Bleeding appeared to have stopped prior to arrival at the ED. Now complaining of lightheadedness and generalized fatigue with a pale appearance. Pt received two outpatient blood transfusions over the past two weeks for symptomatic anemia. Was evaluated by ENT clinic on Saturday and told he may require nasal cautery. Pt denies trauma to the area. Believes he sneezed during the night. Continues to take ASA, Brilinta (dose has decreased to 60), and Eliquis. PCP: Dr. Fifi Porter Head And Neck Surgeon: Dr. Haas Oncologist: Dr. Renee Alfonso Medical Hx: - HTN - HLD - DM (glargine,replaganide) - CVA (2011) - CAD s/p Six vessel Bypass (O2) - s/p L Nephrectomy (01/2017) with cancerous biopsy. On unknown infusion therapy. Past History - Past Medical History Allergies/Adverse Reactions: Allergies Allergy/AdvReac Type Severity Reaction Status Date / Time clopidogrel [From Plavix] Allergy Verified 05/25/18 12:10 Home Medications: Ambulatory Orders Amlodipine Besylate 2.5 mg PO DAILY 05/25/18 Apixaban [Eliquis] 2.5 mg PO BID 05/25/18 Aspirin 81 mg PO ASDIR 05/25/18 Atorvastatin Ca [Lipitor] 20 mg PO HS 05/25/18 Escitalopram Oxalate [Lexapro -] 20 mg PO DAILY 05/25/18 Famotidine 20 mg PO BID 05/25/18 Furosemide [Lasix] 20 mg PO DAILY 05/25/18 Insulin Glargine,Hum.rec.anlog [Basaglar Cesiliapen U-100] 10 unit SQ HS 05/25/18 Isosorbide Mononitrate [Imdur -] 60 mg PO DAILY 05/25/18 Levothyroxine [Synthroid -] 50 mcg PO DAILY 05/25/18 Levothyroxine [Synthroid -] 50 mcg PO DAILY 05/25/18 Metoprolol Succinate 75 mg PO DAILY 05/25/18 Prandin - 2.5 mg PO TID 05/25/18 Ticagrelor [Brilinta] 60 mg PO BID 05/25/18 Cancer: Yes (KIDNEY) Cardiac Disorders: Yes (sextupil bypass 2001) CVA: Yes (2011) COPD: No Diabetes: Yes Disorders: Yes (left kidney removed 01/2017) HTN: Yes Hypercholesterolemia: Yes - Surgical History Cardiac Surgery: Yes - Immunization History Immunization Up to Date: Yes - Suicide/Smoking/Psychosocial Hx Smoking History: Never smoked Have you smoked in the past 12 months: No Hx Alcohol Use: No Drug/Substance Use Hx: No Substance Use Type: None Review of Systems - Review of Systems Able to Perform ROS?: Yes Comments:: In addition to that documented in the HPI above, the additional ROS was obtained : Constitutional: Endorses generalized fatigue and lightheadedness. Denies fevers or chills Head: Denies vision changes ENMT: Denies sore throat CV: Denies chest pain Resp: Denies SOB GI: Endorses resolved vomiting. Denies diarrhea : Denies painful urination MSK: Denies recent trauma Skin: Denies new rashes Neuro: Denies new numbness or tingling Endocrine: Denies polyuria Heme: Nose bleeding *Physical Exam - Vital Signs Last Vital Signs Temp Pulse Resp BP Pulse Ox 97 F L 94 H 18 109/60 99 05/25/18 12:06 05/25/18 12:06 05/25/18 12:06 05/25/18 12:06 05/25/18 12:06 - Physical Exam Comments: Constitutional: Nontoxic adult male in no acute distress or obvious discomfort. Found semi-fowlers on hospital bed. Alert and oriented x4. Answered all questions appropriately and completely. Speech was non-labored, non-pressured. Head: Normocephalic. No obvious external signs of trauma. Eyes: Sclerae white. Conjunctiva moist but pale. Ears: Hearing grossly intact. Nose: Large hematoma in left nare with trace blood in anterior. Trace blood in right nare. Throat: Trace amount of dried blood in posterior oropharynx. No inflammation, swelling, exudate, or lesions. Neck: Supple, trachea is midline. Cardiovascular / Chest: Regular rate and regular rhythm. No murmur, rubs, clicks, or gallops. Peripheral pulses: radial pulses full. Respiratory: Breathing unlabored. Equal chest rise and fall. Clear to auscultation bilaterally. No stridor, no wheezing, no rhonchi. Neuro: Alert and oriented. Moving all four extremities spontaneously. Skin: Pale but warm and dry. Psych: Affect: appropriate. Mood: normal. Moderate Sedation - Procedure Monitoring Vital Signs: Procedure Monitoring Vital Signs Temperature 97 F L 05/25/18 12:06 Pulse Rate 94 H 05/25/18 12:06 Respiratory Rate 18 05/25/18 12:06 Blood Pressure 109/60 05/25/18 12:06 O2 Sat by Pulse Oximetry (%) 99 05/25/18 12:06 ED Treatment Course - LABORATORY CBC & Chemistry Diagram: 05/25/18 12:48 05/25/18 12:48 Medical Decision Making - Medical Decision Making *Reviewed vital signs, nursing notes, and prior visit documentation (if available). 67 y/o male presenting with epistaxis, which has resolved prior to arrival, and symptomatic anemia. Vitals unremarkable for hypotension or tachycardia. Ordered 2 units PRBCs. Will f/u with pts oncologist given two previous transfusions in the past two weeks. Suspect anemia is secondary to both the epistaxis and renal pathology. Left nare bleeding has temporized with large clot. Will not attempt to remove it at this time as pt is able to breath. Concern for recurrence of difficult to control bleeding if removed. 14:[address] Rodriguez, covering physician for Dr. Alfonso , through office answering service. Awaiting call back. 14:[address] Rodriguez. Verbally appraised of the pts HPI, ED course, and current plan of management. Suggested transfusing 2 units PRBCs and re-evaluate. If he appears clinically unstable, can consider transferring to [place]. Otherwise, pt should be able to follow up tomorrow in clinic. 16:40 In person consultation with resident Dr. Eng. Verbally appraised of the pts HPI, ED course, and current plan of management. Will admit pt to med/surg on observational status for attending Dr. Palma *DC/Admit/Observation/Transfer Diagnosis at time of Disposition: Epistaxis not due to trauma, Anticoagulated by anticoagulation treatment Anemia Qualifiers: Anemia type: unspecified type Qualified Code(s): D64.9 - Anemia, unspecified - Discharge Dispostion Condition at time of disposition: Stable Decision to Admit order: Yes - Referrals - Patient Instructions - Post Discharge Activity
[2018-05-25 13:29] LABS: BASO % 1.6 % (0-2.0); HEMATOCRIT 20.6 % (35.4-49); LYMPH % 14.3 % (8-40); MCHC 33.4 g/dl (32.0-35.9); MEAN CELL VOLUME 87.1 fl (80-96); MEAN PLT VOLUME 6.7 fl (7.5-11.1); MONO % 6.1 % (3.8-10.2); PLATELET COUNT 419 K/MM3 (134-434); RBC 2.37 M/mm3 (4.00-5.60); RDW 17.8 % (11.9-15.9); WHITE BLOOD COUNT 8.7 K/mm3 (4.0-10.0)
--- NOTE | 2018-05-25 13:31 | PDOC ---
Attending Attestation - HPI HPI: 05/25/18 13:32 The patient is a 67 YOM with a PMH of HTN, DM, HLD, stroke, CAD, 6 vessel bypass , on aspirin, eliquis, and ticagrelor who presents to the ER with epistaxis from the left notril this morning. Patient states he has had similar epistaxis in the past. Patient states he is compliant to his anticoagulants. Patient admits to lightheadedness but denies any other symptoms at this time. Patient's left nostril has no active bleeding in the ER. Patient reports he has an ENT to follow up with. The patient denies chest pain, shortness of breath, headache and dizziness. Denies fever, chills, nausea, vomit, diarrhea and constipation. Denies dysuria, frequency, urgency and hematuria. Allergies: NKA Past surgical history: 6 vessel bypass Social history: No reported alcohol, drug or cigarette use. PCP: Dr. Peck - Physicial Exam PE: 05/25/18 13:31 ADULT EXAM GENERAL: Awake, alert, and fully oriented, in no acute distress (+) pallorous HEAD: No signs of trauma EYES: PERRLA, EOMI, sclera anicteric, conjunctiva clear ENT: Auricles normal inspection, hearing grossly normal (+) dry clotted blood in the left nostril NECK: Normal ROM, supple, no lymphadenopathy, JVD, or masses EXTREMITIES: Normal range of motion, no edema. No clubbing or cyanosis. No cords, erythema, or tenderness NEUROLOGICAL: Cranial nerves II through XII grossly intact. Normal speech SKIN: Warm, Dry, normal turgor, no rashes or lesions noted. - Medical Decision Making <Nahomi Medina - Last Filed: 05/25/18 13:37> - Resident Resident Name: Riki Lucero - ED Attending Attestation I have performed the following: I have examined & evaluated the patient, The case was reviewed & discussed with the resident, I agree w/resident's findings & plan, Exceptions are as noted - Medical Decision Making 05/25/18 13:23 A portion of this note was documented by scribe services under my direction. I have reviewed the details of the note, within reason, and agree with the documentation with the following case summary and management plan written by me. Patient treated in the ED. Nursing notes are reviewed and incorporated into the medical decision-making. Vital signs reviewed. Peripheral IV access obtained by the nurse, laboratory studies are drawn and sent, reviewed and interpreted by myself. Vital Signs Temp Pulse Resp BP Pulse Ox 97 F L 94 H 18 109/60 99 05/25/18 12:06 05/25/18 12:06 05/25/18 12:06 05/25/18 12:06 05/25/18 12:06 67-year-old male with history of hypertension, diabetes, hyperlipidemia, stroke , coronary disease, 6 vessel bypass, on aspirin, eliquis, and ticagrelor presents with epistaxis. Patient has had prior episodes of these in the past. Patient is adherent to his anticoagulants. Stated this morning, patient has had numerous copious amount blood. He started feel somewhat lightheaded but denies chest pain or short of breath. The patient's family thinks that he is pallorous. The epistaxis resolved on its own. There is a small blood clot in the left nostril. At this moment, we'll not touch the clot and will observe the patient. We'll need to check CBC to see patient will require blood transfusion. Patient does have a history of cancer of his kidney that he receives intermittent blood transfusion. 05/25/18 13:37 CBC, BMP 05/25/18 12:48 2u PRBC ordered. 05/25/18 14:15 CMP Sodium 138 mmol/L (136-145) 05/25/18 12:48 Potassium 5.0 mmol/L (3.5-5.1) 05/25/18 12:48 Chloride 109 mmol/L (98-107) H 05/25/18 12:48 Carbon Dioxide 25 mmol/L (21-32) 05/25/18 12:48 Anion Gap 4 MMOL/L (8-16) L 05/25/18 12:48 BUN 46 mg/dL (7-18) H 05/25/18 12:48 Creatinine 1.6 mg/dL (0.55-1.3) H 05/25/18 12:48 Creat Clearance w eGFR 43.46 (>60) 05/25/18 12:48 Random Glucose 142 mg/dL (74-106) H 05/25/18 12:48 Calcium 8.5 mg/dL (8.5-10.1) 05/25/18 12:48 05/25/18 16:47 Admit 05/25/18 16:47 No epistaxis visualized or witness <Atilio Dumont - Last Filed: 05/25/18 16:47> Heart Score/ECG Review #1 ECG reviewed & interpreted by me at: 13:00 05/25/18 13:22 NSR 79 with 1st degree AV block, LAFB, no std/regulo, T wave flat aVL, V2, QTC 479 msec <Atilio Dumont - Last Filed: 05/25/18 16:47>
[2018-05-25 13:32] LABS: HEMOGLOBIN 6.9 GM/dL (11.7-16.9)
[2018-05-25 13:54] LABS: ANION GAP 4 MMOL/L (8-16); BLOOD UREA NITROGEN 46 mg/dL (7-18); CALCIUM 8.5 mg/dL (8.5-10.1); CHLORIDE 109 mmol/L (98-107); CO2 25 mmol/L (21-32); CREATININE 1.6 mg/dL (0.55-1.3); GLUCOSE,RANDOM 142 mg/dL (74-106); SODIUM 138 mmol/L (136-145)
[2018-05-25 14:23] LABS: INR 1.38 (0.83-1.09); PROTHROMBIN TIME (PATIENT) 16.3 SEC (9.7-13.0)
[2018-05-25 14:26] LABS: ACTIVATED PTT 32.7 SECONDS (25.2-36.5)
[2018-05-25 17:18] LABS: ANISOCYTOSIS 1+; MACROCYTOSIS 0; PLATELET ESTIMATE NORMAL
--- NOTE | 2018-05-25 17:25 | HP ---
CHIEF COMPLAINT: epistaxis PCP: Dr. Porter HISTORY OF PRESENT ILLNESS: 67 y/o M with PMH HTN, DM, HLD, stroke, CAD with 6 vessel bypass (12 yrs ago), s /p L nephrectomy, who presents to the ED c/o epistaxis. As per pt, he was at home last night when he sneezed and started having a nose bleed from his L nostril. States it continued through the night, and he began to feel increasingly lightheaded so his sister told him to go to the ED for evaluation. Pt denies any nasal trauma, picking, or injury. Has had a similar episode of epistaxis from the same nostril previously, was tx with topical TXA, and Afrin spray and d/c home. Denies CEJA, fever, chills, SOB, chest pain or pressure, or changes in urinary or bowel function. 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 Smoking: used to smoke < 1ppd for a "few years" unable to quantify Alcohol: social Drugs: denies Family History: non-contributory Allergies clopidogrel [From Plavix] Allergy (Verified 05/25/18 12:10) HOME MEDICATIONS: Home Medications Medication Instructions Recorded Amlodipine Besylate 2.5 mg PO DAILY 05/25/18 Apixaban [Eliquis] 2.5 mg PO BID 05/25/18 Aspirin 81 mg PO ASDIR 05/25/18 Atorvastatin Ca [Lipitor] 20 mg PO HS 05/25/18 Escitalopram Oxalate [Lexapro -] 20 mg PO DAILY 05/25/18 Famotidine 20 mg PO BID 05/25/18 Furosemide [Lasix] 20 mg PO DAILY 05/25/18 Insulin Glargine,Hum.rec.anlog 10 unit SQ HS 05/25/18 [Basaglar Cesiliapen U-100] Isosorbide Mononitrate [Imdur -] 60 mg PO DAILY 05/25/18 Levothyroxine [Synthroid -] 50 mcg PO DAILY 05/25/18 Levothyroxine [Synthroid -] 50 mcg PO DAILY 05/25/18 Metoprolol Succinate 75 mg PO DAILY 05/25/18 Prandin - 2.5 mg PO TID 05/25/18 Ticagrelor [Brilinta] 60 mg PO BID 05/25/18 medications need to be confirmed with sister REVIEW OF SYSTEMS CONSTITUTIONAL: Absent: fever, chills, diaphoresis, generalized weakness, malaise, loss of appetite, weight change HEENT: +epistaxis Absent: rhinorrhea, nasal congestion, throat pain, throat swelling, difficulty swallowing, mouth swelling, ear pain, eye pain, visual changes CARDIOVASCULAR: Absent: chest pain, syncope, palpitations, irregular heart rate, lightheadedness , peripheral edema RESPIRATORY: Absent: cough, shortness of breath, dyspnea with exertion, orthopnea, wheezing, stridor, hemoptysis GASTROINTESTINAL: Absent: abdominal pain, abdominal distension, nausea, vomiting, diarrhea, constipation, melena, hematochezia GENITOURINARY: Absent: dysuria, frequency, urgency, hesitancy, hematuria, flank pain, genital pain MUSCULOSKELETAL: Absent: myalgia, arthralgia, joint swelling, back pain, neck pain SKIN: Absent: rash, itching, pallor HEMATOLOGIC/IMMUNOLOGIC: Absent: easy bleeding, easy bruising, lymphadenopathy, frequent infections ENDOCRINE: Absent: unexplained weight gain, unexplained weight loss, heat intolerance, cold intolerance NEUROLOGIC: Absent: headache, focal weakness or paresthesias, dizziness, unsteady gait, seizure, mental status changes, bladder or bowel incontinence PSYCHIATRIC: Absent: anxiety, depression, suicidal or homicidal ideation, hallucinations. PHYSICAL EXAMINATION Vital Signs 05/25/18 05/25/18 05/25/18 12:06 12:43 13:34 Temperature 97 F L 97.8 F Pulse Rate 94 H 82 Pulse Rate [ 82 Apical] Respiratory 18 16 Rate Blood Pressure 109/60 Blood Pressure 128/76 [Right Arm] O2 Sat by Pulse 99 100 100 Oximetry (%) GENERAL: Pleasant. Awake, alert, and fully oriented, in no acute distress. HEAD: Normal with no signs of trauma. EYES: Pupils equal, round and reactive to light, extraocular movements intact, sclera anicteric, conjunctiva clear. EARS, NOSE, THROAT: +clotted blood- L nostril. no active bleed. NECK: Normal range of motion, supple LUNGS: Breath sounds equal, clear to auscultation bilaterally. No wheezes, and no crackles. No accessory muscle use. HEART: Regular rate and rhythm, normal S1 and S2 without murmur, rub or gallop. ABDOMEN: Soft, nontender, not distended, normoactive bowel sounds, no guarding LOWER EXTREMITIES: 2+ pt pulses, warm, well-perfused. No calf tenderness. No peripheral edema. NEUROLOGICAL: Cranial nerves II-XII intact. normal speech. PSYCHIATRIC: Cooperative. Good eye contact. SKIN: Warm, dry Laboratory Tests 05/25/18 05/25/18 05/25/18 12:48 12:48 12:48 Hgb 6.9 L* Hct 20.6 L D PT with INR 16.30 H INR 1.38 H BUN 46 H Creatinine 1.6 H ASSESSMENT/PLAN: 67 y/o M with PMH HTN, DM, HLD, stroke, CAD with 6 vessel bypass (12 yrs ago), s /p L nephrectomy, who presents to the ED c/o epistaxis. #Acute blood loss anemia 2/2 L nasal epistaxis -has been recurring, needs to f/u with ENT outpt -currently hemodynamically stable. without active bleed -will give 2U prbcs. f/u repeat CBC to assess for adequate rise -if continues, may need nasal rocket to tamponade area. -cardio consult: Dr. Whaley. -for now will hold eliquis, asa, brillinta. and await cardio input about agents #CAD s/p 6 vessel bypass -holding asa, brillinta, eliquis for now d/t recent bleed #DM -ISS, BGM ACHS #HTN- controlled -c/w amlodipine, metoprolol #HLD -c/w lipitor #F/E/N no IVF required at this time continue to follow lytes cholesterol controlled/sodium cont/diabetic diet #PPX SCD's d/t recent bleed #Dispo tele obs Visit type - Emergency Visit Emergency Visit: Yes ED Registration Date: 05/25/18 Care time: The patient presented to the Emergency Department on the above date and was hospitalized for further evaluation of their emergent condition. - New Patient This patient is new to me today: Yes Date on this admission: 05/25/18 - Critical Care Critical Care patient: No
[2018-05-25] MEDS ORDERED: ASPIRIN 81 MG CHEWABLE TABLETS PO SCH (17:30)
--- NOTE | 2018-05-25 17:55 | PN ---
Teaching Attending Note Name of Resident: Manjula Eng ATTENDING PHYSICIAN STATEMENT I saw and evaluated the patient. I reviewed the resident's note and discussed the case with the resident. I agree with the resident's findings and plan as documented. SUBJECTIVE:67 y/o M with a PMH of HTN, HLD, DM, CVA (2011), CAD s/p Six vessel Bypass, s/p L Nephrectomy (01/2017, tumor work-up) presents to the ER after spontaneous epistaxis that started yesterday. states bleeding didnt stop until early this AM and came to the ER for eval. had similar episode last month. has had 2 outpatient transfusions due to symptomatic anemia. denies any trauma to the nose (nosepicking, frequent nose blowing), URI like symptoms, CP, SOB, fever, chills, hematuria or BRBPR or melena pt did not take his medications this morning he is unclear why he is on NOAC OBJECTIVE: Last Vital Signs Temp Pulse Resp BP Pulse Ox 97.4 F L 82 19 111/63 100 05/25/18 14:53 05/25/18 14:53 05/25/18 14:53 05/25/18 14:53 05/25/18 14:53 General NAD HEENT dried blood in B/L nostrils. no active bleeding CV S1 S2 RRR no murmur/rub/gallop Lungs CTA B/L no wheezing/rales/rhonchi ASSESSMENT AND PLAN: 67 y/o M with a PMH of HTN, HLD, DM, CVA (2011), CAD s/p Six vessel Bypass, s/p L Nephrectomy (01/2017, tumor work-up) presents to the ER after spontaneous epistaxis that started yesterday and patient was found to be anemia 1. Acute blood loss anemia- due to spontaneous epistaxis. 2 units PRBC ordered. will check post-transfusion CBC. if re-bleeds will need to consider nasal rocket if bleeding can not be controlled. consult cardiology to evaluate medication as on DAPT and NOAC. will hold these medications at this time. 2. HTN- controlled. cont home medications 3. DM- cont home medications 4. CVA 5. CAD s/p 6vessel bypass- on DAPT. last stent was a year ago. spoke [facility] cardio who will investigate further and determine if can d/c brilinta at this time 6. s/p L nephrectomy 7. CKD- at baseline 8. DVT ppx- SCD. hold pharmacologic anticoagulation
[2018-05-25] MEDS: INSULIN SLIDING SCALE (NOVOLOG) 1 VIAL SQ SCH (21:50)
[2018-05-25] MEDS: amLODIPine BESYLATE 2.5 MG TABLET (FP) PO SCH (21:52)
[2018-05-25] MEDS: RANITIDINE HCL 150 MG TABLET (FP) PO SCH (21:52)
[2018-05-25] MEDS ORDERED: ATORVASTATIN CA 20 MG TABLET (FP) PO SCH (22:00)
[2018-05-25] MEDS ORDERED: TICAGRELOR 60 MG TABLET PO SCH (22:00)
[2018-05-25] MEDS ORDERED: REPAGLINIDE PO SCH (22:00)
[2018-05-25] MEDS: ISOSORBIDE MONONITRATE 60 MG TAB.SR.24H (FP) PO SCH (23:30)
--- NOTE | 2018-05-25 23:45 | EKG ---
Test Reason : Blood Pressure : / mmHG Vent. Rate : 079 BPM Atrial Rate : 079 BPM P-R Int : 202 ms QRS Dur : 084 ms QT Int : 418 ms P-R-T Axes : 075 -59 057 degrees QTc Int : 479 ms NORMAL SINUS RHYTHM LEFT ANTERIOR FASCICULAR BLOCK POSSIBLE LATERAL INFARCT (CITED ON OR BEFORE 04-JUN-2017) ABNORMAL ECG WHEN COMPARED WITH ECG OF 04-JUN-2017 20:15, LEFT ANTERIOR FASCICULAR BLOCK IS NOW PRESENT Confirmed by DIO TERRELL, EUFEMIA ([id number]) on 05/25/2018 11:44:56 PM Referred By: Confirmed By:EUFEMIA WHARTON MD
[2018-05-26 03:43] VITALS: BMI 30.2
--- NOTE | 2018-05-26 04:02 | CON.CARD ---
Consult Consult Specialty:: cardiology Reason for Consultation:: acute nasal bleed; on dual antiplatelet therapy, and apisaban - History of Present Illness Chief Complaint: A&OX3; no further nasal bleeding; no chest pain or dyspnea History of Present Illness: The patient is a 67 YOM with a PMH of HTN, DM, HLD, CVA, CAD with several coronary stents followed years later by 6 vessel CABG, then reported coronary stent of CABG graft (note 09/15/2017 cath at [facility]:see below), on aspirin, ticagrelor, and eliquis (pt was unsure why, but cath report 09/2017 notes recommendation to "restart" eliquis for PE/IVC thrombus of that occurred on ?date), overweight, sedentary, who presents to the ER with epistaxis from the left nostril this morning after sneezing with ensuing anemia that requires PRBCs. Patient states he has had similar epistaxis in the past. Patient states he is compliant to his antiplatelets and anticoagulant. Patient admits to lightheadedness but denies any other symptoms at this time. Patient's left nostril has no active bleeding in the ER. Patient reports he has an ENT to follow up with. The patient denies chest pain, shortness of breath, headache and dizziness. Denies fever, chills, nausea, vomit, diarrhea and constipation. Denies dysuria, frequency, urgency and hematuria. Allergies: NKA Past surgical history: several coronary stents which later "failed"-->6 vessel CABG several years ago, followed by stent of graft about one year ago. Denies hx MT Social history: No reported alcohol, drug or cigarette use. PCP: Dr. Peck ECHO 06/2017: normal LVEF Stress Lexiscan MIBI 06/05/2017: moderate zones of moderately intense anterior/ anteroapical and inferior/inferoapical ischemia Coronary angiogram 09/05/2017 at [facility] by Dr. Bo: PCI (Drug-eluting stent) of proximal and mid LCx; recommendations for ASA indefinitely and ticagrelor "6 months or longer". 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 Cardio/Vascular: Yes: HTN Renal/: Yes: Renal Inusuff Psych: Yes: Anxiety Endocrine: Yes: Diabetes Mellitus - Past Surgical History Past Surgical History: Yes: CABG, Stent (LCx drug-eluting stent 09/05/2017) - Alcohol/Substance Use Hx Alcohol Use: No - Smoking History Smoking history: Never smoked Have you smoked in the past 12 months: No Home Medications - Allergies Allergies/Adverse Reactions: Allergies Allergy/AdvReac Type Severity Reaction Status Date / Time clopidogrel [From Plavix] Allergy Verified 05/25/18 12:10 - Home Medications Home Medications: Ambulatory Orders Amlodipine Besylate 2.5 mg PO DAILY 05/25/18 Apixaban [Eliquis] 2.5 mg PO BID 05/25/18 Aspirin 81 mg PO ASDIR 05/25/18 Atorvastatin Ca [Lipitor] 20 mg PO HS 05/25/18 Escitalopram Oxalate [Lexapro -] 20 mg PO DAILY 05/25/18 Famotidine 20 mg PO BID 05/25/18 Furosemide [Lasix] 20 mg PO DAILY 05/25/18 Insulin Glargine,Hum.rec.anlog [Basaglar Kwikpen U-100] 10 unit SQ HS 05/25/18 Isosorbide Mononitrate [Imdur -] 60 mg PO DAILY 05/25/18 Levothyroxine [Synthroid -] 50 mcg PO DAILY 05/25/18 Levothyroxine [Synthroid -] 50 mcg PO DAILY 05/25/18 Metoprolol Succinate 75 mg PO DAILY 05/25/18 Prandin - 2.5 mg PO TID 05/25/18 Ticagrelor [Brilinta] 60 mg PO BID 05/25/18 Review of Systems - Review of Systems Constitutional: reports: Other (lightheaded) Eyes: reports: No Symptoms HENT: reports: No Symptoms Neck: reports: No Symptoms Cardiovascular: reports: No Symptoms Respiratory: reports: No Symptoms Gastrointestinal: reports: No Symptoms Genitourinary: reports: No Symptoms Breasts: reports: No Symptoms Reported Musculoskeletal: reports: No Symptoms Integumentary: reports: No Symptoms Neurological: reports: No Symptoms Endocrine: reports: No Symptoms Hematology/Lymphatic: reports: No Symptoms Psychiatric: reports: No Symptoms - Risk Factors Known Risk Factors: Yes: Age, Gender, Hypercholesterolemia, Hypertension, Physical Inactivity Vital Signs: Vital Signs Temperature 98.7 F 05/25/18 19:15 Pulse Rate 89 05/25/18 23:30 Respiratory Rate 18 05/25/18 23:30 Blood Pressure 121/69 05/25/18 23:30 O2 Sat by Pulse Oximetry (%) 96 05/25/18 20:00 Constitutional: Yes: Well Nourished, Calm Eyes: Yes: WNL HENT: Yes: WNL Neck: Yes: WNL Respiratory: Yes: WNL Gastrointestinal: Yes: WNL Renal/: Yes: Anuria Cardiovascular: Yes: WNL JVD: No Carotid Bruit: No PMI: Non-Displaced Heart Sounds: Yes: S1, S2 Musculoskeletal: Yes: WNL Extremities: Yes: WNL Edema: No Peripheral Pulses WNL: Yes Integumentary: Yes: WNL Neurological: Yes: WNL ...Motor Strength: WNL Psychiatric: Yes: WNL - Other Data Labs, Other Data: CBC, BMP 05/25/18 12:48 05/25/18 12:48 INR, PTT INR 1.38 (0.83-1.09) H 05/25/18 12:48 Troponin, BNP 05/25/18 21:45 Troponin I < 0.02 Troponin, BNP 05/25/18 21:45 Troponin I < 0.02 Imaging - Results EKG: Image Reviewed (NSR) Problem List - Problems (1) Epistaxis Assessment/Plan: Today's episode resulted in need for PRBCs. On ASA and ticagrelor for LCx drug-eluting stent placed 09/05/2017 (at the time , interventionalist recommended ASA be continued indefinitely, and ticagrelor " 6 months or longer"). On apixaban for "PE/IVC thrombus":date of occurrence not known. Plan: F/u Hb post PRBCs. F/u ENT. Ticagrelor and apixaban held presently. Will check records and discuss with Dr. Bo, pt's interventionalist. Code(s): R04.0 - EPISTAXIS (2) Anemia Assessment/Plan: Hb 11.5 on 05/31/2017; now 6.9. Receiving PRBCs. Code(s): D64.9 - ANEMIA, UNSPECIFIED Qualifiers: Anemia type: unspecified type Qualified Code(s): D64.9 - Anemia, unspecified (3) CAD (coronary artery disease) of bypass graft Code(s): I25.810 - ATHEROSCLEROSIS OF CABG W/O ANGINA PECTORIS (4) HLD (hyperlipidemia) Assessment/Plan: Continue statin (on atorvastatin). Code(s): E78.5 - HYPERLIPIDEMIA, UNSPECIFIED (5) HTN (hypertension) Assessment/Plan: Discuss with nephrology whether ACIE or ARB can be added (chronic renal dysfunction). On furosemide, metoprolol, amlodipine, Imdur. Code(s): I10 - ESSENTIAL (PRIMARY) HYPERTENSION (6) Nasal bleeding Code(s): R04.0 - EPISTAXIS (7) Pulmonary embolism Assessment/Plan: f/u records. in 07/2017, pt's educational programming director, Dr. Porter, reported told pt he could stop apixaban if he was still taking dual antiplatelet therapy. Code(s): I26.99 - OTHER PULMONARY EMBOLISM WITHOUT ACUTE COR PULMONALE (8) Renal cancer Assessment/Plan: f/u with oncologist (? spread to adrenal glands). Code(s): C64.9 - MALIGNANT NEOPLASM OF UNSP KIDNEY, EXCEPT RENAL PELVIS (9) Diabetes Code(s): E11.9 - TYPE 2 DIABETES MELLITUS WITHOUT COMPLICATIONS
[2018-05-26] MEDS: INSULIN SLIDING SCALE (NOVOLOG) 1 VIAL SQ SCH ×2 (06:00→11:31)
[2018-05-26] MEDS ORDERED: LEVOTHYROXINE NA 50 MCG TABLET (FP) PO SCH (07:00)
[2018-05-26 07:38] LABS: BASO % 0.7 % (0-2.0); EOS % 1.9 % (0-4.5); HEMOGLOBIN 8.2 GM/dL (11.7-16.9); LYMPH % 18.9 % (8-40); MCH 29.8 pg (25.7-33.7); MCHC 34.1 g/dl (32.0-35.9); MEAN CELL VOLUME 87.5 fl (80-96); MEAN PLT VOLUME 6.6 fl (7.5-11.1); MONO % 8.6 % (3.8-10.2); NEUT % 69.9 % (42.8-82.8); PLATELET COUNT 291 K/MM3 (134-434); RBC 2.74 M/mm3 (4.00-5.60)
[2018-05-26 07:59] LABS: ANION GAP 5 MMOL/L (8-16); BLOOD UREA NITROGEN 37 mg/dL (7-18); CHLORIDE 110 mmol/L (98-107); CO2 24 mmol/L (21-32); CREATININE 1.3 mg/dL (0.55-1.3); GLUCOSE,RANDOM 101 mg/dL (74-106); MAGNESIUM 2.2 mg/dL (1.8-2.4); PHOSPHOROUS 3.2 mg/dL (2.5-4.9); POTASSIUM 4.2 mmol/L (3.5-5.1); SODIUM 139 mmol/L (136-145)
[2018-05-26] MEDS ORDERED: REPAGLINIDE PO SCH (08:00)
[2018-05-26] MEDS: REPAGLINIDE 1 MG TABLET PO SCH ×2 (09:04→12:23)
[2018-05-26] MEDS: amLODIPine BESYLATE 2.5 MG TABLET (FP) PO SCH (09:05)
[2018-05-26] MEDS: ISOSORBIDE MONONITRATE 60 MG TAB.SR.24H (FP) PO SCH (09:05)
[2018-05-26] MEDS: RANITIDINE HCL 150 MG TABLET (FP) PO SCH (09:05)
[2018-05-26] MEDS ORDERED: FUROSEMIDE 20 MG TABLET (FP) PO SCH (10:00)
[2018-05-26] MEDS ORDERED: ESCITALOPRAM OXALATE 20 MG TABLET (FP) PO SCH (10:00)
[2018-05-26] MEDS ORDERED: ISOSORBIDE MONONITRATE 60 MG TAB.SR.24H (FP) PO SCH (10:00)
--- NOTE | 2018-05-26 10:12 | EKG ---
Test Reason : Blood Pressure : / mmHG Vent. Rate : 103 BPM Atrial Rate : 103 BPM P-R Int : 200 ms QRS Dur : 082 ms QT Int : 356 ms P-R-T Axes : 088 -24 067 degrees QTc Int : 466 ms SINUS TACHYCARDIA POSSIBLE ANTERIOR INFARCT (CITED ON OR BEFORE 04-JUN-2017) ABNORMAL ECG WHEN COMPARED WITH ECG OF 25-MAY-2018 12:56, NO SIGNIFICANT CHANGE WAS FOUND Confirmed by FRIDA TERRELL, GLENN ([id number]) on 05/26/2018 10:11:54 AM Referred By: Confirmed By:GLENN GALICIA MD
[2018-05-26 11:57] LABS: BASO % 1.4 % (0-2.0); EOS % 1.7 % (0-4.5); HEMATOCRIT 23.3 % (35.4-49); HEMOGLOBIN 7.9 GM/dL (11.7-16.9); LYMPH % 18.3 % (8-40); MCH 29.9 pg (25.7-33.7); MCHC 34.1 g/dl (32.0-35.9); MEAN CELL VOLUME 87.6 fl (80-96); MEAN PLT VOLUME 6.6 fl (7.5-11.1); MONO % 7.7 % (3.8-10.2); NEUT % 70.9 % (42.8-82.8); PLATELET COUNT 287 K/MM3 (134-434); RBC 2.66 M/mm3 (4.00-5.60); RDW 15.9 % (11.9-15.9); WHITE BLOOD COUNT 7.5 K/mm3 (4.0-10.0)
--- NOTE | 2018-05-26 12:10 | PN ---
Progress Note, Physician History of Present Illness: The patient is a 67 YOM with a PMH of HTN, DM, HLD, CVA, CAD with several coronary stents followed years later by 6 vessel CABG, then reported coronary stent of CABG graft (note 09/15/2017 cath at [facility]:see below), on aspirin, ticagrelor, and eliquis (pt was unsure why, but cath report 09/2017 notes recommendation to "restart" eliquis for PE/IVC thrombus of that occurred on ?date), overweight, sedentary, who presents to the ER with epistaxis from the left nostril this morning after sneezing with ensuing anemia that requires PRBCs. Patient states he has had similar epistaxis in the past. Patient states he is compliant to his antiplatelets and anticoagulant. Patient admits to lightheadedness but denies any other symptoms at this time. Patient's left nostril has no active bleeding in the ER. Patient reports he has an ENT to follow up with. - Current Medication List Current Medications: Active Medications Amlodipine Besylate (Norvasc -) 2.5 mg PO DAILY [facility] Last Admin: 05/26/18 09:05 Dose: 2.5 mg Atorvastatin Calcium (Lipitor -) 20 mg PO HS [facility] Last Admin: 05/25/18 21:52 Dose: 20 mg Escitalopram Oxalate (Lexapro -) 20 mg PO DAILY [facility] Last Admin: 05/26/18 09:05 Dose: 20 mg Furosemide (Lasix -) 20 mg PO DAILY [facility] Last Admin: 05/26/18 09:04 Dose: 20 mg Insulin Aspart (Novolog Vial Sliding Scale -) 1 vial SQ [facility]; Protocol Last Admin: 05/26/18 11:31 Dose: Not Given Isosorbide Mononitrate (Imdur -) 60 mg PO DAILY [facility] Last Admin: 05/26/18 09:05 Dose: 60 mg Levothyroxine Sodium (Synthroid -) 50 mcg PO ACBK [facility] Last Admin: 05/26/18 06:16 Dose: 50 mcg Metoprolol Succinate (Toprol Xl -) 75 mg PO DAILY [facility] Last Admin: 05/26/18 09:05 Dose: 75 mg Ranitidine HCl (Zantac -) 150 mg PO BID [facility] Last Admin: 05/26/18 09:05 Dose: 150 mg Repaglinide (Prandin -) 2.5 mg PO TIDAC [facility] Last Admin: 05/26/18 09:04 Dose: 2.5 mg - Objective Vital Signs: Vital Signs Temperature 97.6 F 05/26/18 10:00 Pulse Rate 73 05/26/18 10:00 Respiratory Rate 18 05/26/18 10:00 Blood Pressure 120/61 05/26/18 10:00 O2 Sat by Pulse Oximetry (%) 96 05/26/18 09:00 Eyes: Yes: WNL, Conjunctiva Clear, EOM Intact HENT: Yes: WNL, Atraumatic, Normocephalic Neck: Yes: WNL, Supple, Trachea Midline Cardiovascular: Yes: WNL, Regular Rate and Rhythm Respiratory: Yes: WNL, Regular, CTA Bilaterally Gastrointestinal: Yes: WNL, Normal Bowel Sounds Genitourinary: Yes: WNL Musculoskeletal: Yes: WNL Extremities: Yes: WNL Edema: No Integumentary: Yes: WNL Neurological: Yes: WNL, Alert, Oriented ...Motor Strength: WNL Psychiatric: Yes: WNL Labs: CBC, BMP 05/26/18 11:45 05/26/18 06:40 INR, PTT INR 1.38 (0.83-1.09) H 05/25/18 12:48 Assessment/Plan Problem List - Problems (1) Epistaxis Assessment/Plan: Today's episode resulted in need for PRBCs. On ASA and ticagrelor for LCx drug-eluting stent placed 09/05/2017 (at the time , interventionalist recommended ASA be continued indefinitely, and ticagrelor " 6 months or longer"). On apixaban for "PE/IVC thrombus":date of occurrence not known. Plan: F/u Hb post PRBCs. F/u ENT. Ticagrelor and apixaban held presently. Obtain eold records regarding PE - was it provoked /unprovoked in term of determining length of treatment. Code(s): R04.0 - EPISTAXIS (2) Anemia Assessment/Plan: Hb 11.5 on 05/31/2017; now 6.9. Receiving PRBCs. Code(s): D64.9 - ANEMIA, UNSPECIFIED Qualifiers: Anemia type: unspecified type Qualified Code(s): D64.9 - Anemia, unspecified (3) CAD (coronary artery disease) of bypass graft Code(s): I25.810 - ATHEROSCLEROSIS OF CABG W/O ANGINA PECTORIS (4) HLD (hyperlipidemia) Assessment/Plan: Continue statin (on atorvastatin). Code(s): E78.5 - HYPERLIPIDEMIA, UNSPECIFIED (5) HTN (hypertension) Assessment/Plan: Discuss with nephrology whether ACIE or ARB can be added (chronic renal dysfunction). On furosemide, metoprolol, amlodipine, Imdur. Code(s): I10 - ESSENTIAL (PRIMARY) HYPERTENSION (6) Nasal bleeding Code(s): R04.0 - EPISTAXIS (7) Pulmonary embolism Assessment/Plan: f/u records. in 07/2017, pt's accuracy expert, Dr. Porter, reported told pt he could stop apixaban if he was still taking dual antiplatelet therapy. Code(s): I26.99 - OTHER PULMONARY EMBOLISM WITHOUT ACUTE COR PULMONALE (8) Renal cancer Assessment/Plan: f/u with oncologist (? spread to adrenal glands). Code(s): C64.9 - MALIGNANT NEOPLASM OF UNSP KIDNEY, EXCEPT RENAL PELVIS (9) Diabetes Code(s): E11.9 - TYPE 2 DIABETES MELLITUS WITHOUT COMPLICATIONS DVT plx
--- NOTE | 2018-05-26 12:56 | PN ---
Teaching Attending Note Name of Resident: Brayan Garcia ATTENDING PHYSICIAN STATEMENT I saw and evaluated the patient. I reviewed the resident's note and discussed the case with the resident. I agree with the resident's findings and plan as documented. SUBJECTIVE:no repeat episodes of bleeding. had episode of chest discomfort which has resolved. denies Cp, SOB, fever, chills, N/V/C/D OBJECTIVE: Last Vital Signs Temp Pulse Resp BP Pulse Ox 97.6 F 73 18 120/61 96 05/26/18 10:00 05/26/18 10:00 05/26/18 10:00 05/26/18 10:00 05/26/18 09:00 General NAD HEENT no active bleeding CV S1 S2 RRR no murmur/rub/gallop Lungs CTA B/L no wheezing/rales/rhonchi ASSESSMENT AND PLAN: 67 y/o M with a PMH of HTN, HLD, DM, CVA (2011), CAD s/p Six vessel Bypass, s/p L Nephrectomy (01/2017, tumor work-up) presents to the ER after spontaneous epistaxis that started yesterday and patient was found to be anemia 1. Acute blood loss anemia- due to spontaneous epistaxis.s/p 2 units PRBC. not appropriate response to units but no more reports of bleeding. will repeat CBC. will need to f/u [facility] ENT as outpatient. plan to d/c brilinta at this time as had 2 spontaneous episodes of epistaxis in 1 month 2. HTN- controlled. cont home medications 3. DM- cont home medications 4. CVA 5. CAD s/p 6vessel bypass- plan to stop brilinta and can cont on asa and eliquis low dose. 6. s/p L nephrectomy 7. CKD- at baseline 8. DVT ppx- SCD. hold pharmacologic anticoagulation 9. will repeat CBC if hgb stable can d/c home
[2018-05-26 14:20] VITALS: BP 101/56; PULSE 77; TEMP 98.1
--- NOTE | 2018-05-26 15:20 | DS ---
Physical Exam: SUBJECTIVE: Patient seen and examined at bedside. Bleeding has resolved, no further lightheadedness or dizziness. Feeling well. OBJECTIVE: Vital Signs Period Temp Pulse Resp BP Sys/Arreguin Pulse Ox Last 24 Hr 97.6 F-98.7 F 73-101 16-20 101-155/56-90 96-100 PHYSICAL EXAM GENERAL: A&Ox3, NAD HEENT: NC/AT, PERRLA, EOMI, MMM, dry clotted blood at L nare NECK: Trachea midline, full range of motion, supple. LUNGS: CTA b/l HEART: RRR no m/r/g ABDOMEN: +bs, soft, NT, ND EXTREMITIES: 2+ pulses, warm, well-perfused, no edema. NEUROLOGICAL: sprayer leather, motor, sensory systems w/o focal deficit PSYCH: Normal mood, normal affect. SKIN: Warm, dry, normal turgor, no rashes or lesions noted LABS Laboratory Results - last 24 hr 05/25/18 05/25/18 05/25/18 12:48 12:48 21:17 WBC RBC Hgb Hct MCV MCH MCHC RDW Plt Count MPV Absolute Neuts (auto) Neutrophils % Neutrophils % (Manual) 70.1 Band Neutrophils % 0.0 Lymphocytes % Lymphocytes % (Manual) 20.6 Monocytes % Monocytes % (Manual) 3 L Eosinophils % Eosinophils % (Manual) 3.1 Basophils % Basophils % (Manual) 1.0 Myelocytes % (Man) 0 Promyelocytes % (Man) 0 Blast Cells % (Manual) 0 Nucleated RBC % Metamyelocytes 0 Hypochromia 1+ Platelet Estimate Normal Polychromasia 0 Poikilocytosis 0 Anisocytosis 1+ Microcytosis 0 Macrocytosis 0 Sodium Potassium Chloride Carbon Dioxide Anion Gap BUN Creatinine Creat Clearance w eGFR POC Glucometer 77 Random Glucose Calcium Phosphorus Magnesium Troponin I Blood Type B POSITIVE Antibody Screen Negative Crossmatch See Detail 05/25/18 05/26/18 05/26/18 21:45 05:16 06:40 WBC 8.0 RBC 2.74 L Hgb 8.2 L Hct 24.0 L D MCV 87.5 MCH 29.8 MCHC 34.1 RDW 16.0 H Plt Count 291 D MPV 6.6 L Absolute Neuts (auto) 5.6 Neutrophils % 69.9 Neutrophils % (Manual) Band Neutrophils % Lymphocytes % 18.9 D Lymphocytes % (Manual) Monocytes % 8.6 Monocytes % (Manual) Eosinophils % 1.9 Eosinophils % (Manual) Basophils % 0.7 Basophils % (Manual) Myelocytes % (Man) Promyelocytes % (Man) Blast Cells % (Manual) Nucleated RBC % 0 Metamyelocytes Hypochromia Platelet Estimate Polychromasia Poikilocytosis Anisocytosis Microcytosis Macrocytosis Sodium Potassium Chloride Carbon Dioxide Anion Gap BUN Creatinine Creat Clearance w eGFR POC Glucometer 92 Random Glucose Calcium Phosphorus Magnesium Troponin I < 0.02 Blood Type Antibody Screen Crossmatch 05/26/18 05/26/18 05/26/18 06:40 11:15 11:45 WBC 7.5 RBC 2.66 L Hgb 7.9 L Hct 23.3 L MCV 87.6 MCH 29.9 MCHC 34.1 RDW 15.9 Plt Count 287 MPV 6.6 L Absolute Neuts (auto) 5.3 Neutrophils % 70.9 Neutrophils % (Manual) Band Neutrophils % Lymphocytes % 18.3 Lymphocytes % (Manual) Monocytes % 7.7 Monocytes % (Manual) Eosinophils % 1.7 Eosinophils % (Manual) Basophils % 1.4 Basophils % (Manual) Myelocytes % (Man) Promyelocytes % (Man) Blast Cells % (Manual) Nucleated RBC % 0 Metamyelocytes Hypochromia Platelet Estimate Polychromasia Poikilocytosis Anisocytosis Microcytosis Macrocytosis Sodium 139 Potassium 4.2 Chloride 110 H Carbon Dioxide 24 Anion Gap 5 L BUN 37 H Creatinine 1.3 Creat Clearance w eGFR 55.23 POC Glucometer 123 Random Glucose 101 Calcium 8.0 L Phosphorus 3.2 Magnesium 2.2 Troponin I Blood Type Antibody Screen Crossmatch HOSPITAL COURSE: Date of Admission:05/25/18 Patient is a 67 y/o M w/ PMHx HTN, DM, HLD, stroke, CAD with 6 vessel bypass ( 12 yrs ago), metastatic renal Ca s/p L nephrectomy, p/w high volume epistaxis from left nare. Previously had significant bleeding on the same side, was resolved with topical TXA. Epistaxis continued throughout much of the day prior to admission but resolved upon presentation at the hospital. Patient further complained of lightheadedness and dizziness and was found to be anemic to Hb 6.9. Cardiology was consulted given his extensive cardiac history and use of DAPT and AC. He received 2U PRBC and H/H stabilized. He was discharged on ASA and Eliquis with Brilinta held, and referred for outpatient f/u to his regular escalator attendant and admission specialist and to ENT for further evaluation and management of epistaxis. Date of Discharge: 05/26/18 Minutes to complete discharge: 40 Discharge Summary Reason For Visit: ON ANTICOAGULANT THERAPY,EPISTAXIS,ANEMIA Current Active Problems Anemia (Acute) Anticoagulated by anticoagulation treatment (Acute) Epistaxis (Acute) Epistaxis not due to trauma (Acute) Condition: Stable - Instructions Diet, Activity, Other Instructions: You were hospitalized for significant nose-bleeding causing symptoms of anemia, and a low blood count on laboratory testing. The nose-bleeding resolved and you received a blood transfusion which stabilized your counts. Please follow up with your primary care doctor, your escalator attendant, and your admission specialist. Referrals for followup within 1 week of discharge have been made on your behalf. Additionally, a referral has been made on your behalf to Dr. Yeyo Diaz , an repairer auto clocks (ENT doctor) for outpatient evaluation of your nose bleeding. Please see him within 1 week of your discharge. Changes to your home medication regimen are explained below. If you experience any new or worsening bleeding, chest pain, lightheadedness, shortness of breath, loss of consciousness, fever, chills, or any other new or concerning symptoms, please return to the Emergency Department. MEDICATION CHANGES DISCONTINUE Brilinta RESUME taking daily Aspirin. RESUME taking twice daily Eliquis. Otherwise resume your home medications as normal. Your doctors, in particular your escalator attendant, may adjust these doses. Do not make any changes to your medication regimen without consulting your doctors. Referrals: Eric Peck MD [Non Staff, Medical] - Demetrius Haas MD [Staff Physician] - Yeyo Diaz MD [Staff Physician] - Jaleel Porter [Non Staff, Medical] - - Home Medications Comprehensive Discharge Medication List: Ambulatory Orders Amlodipine Besylate 2.5 mg PO DAILY 05/25/18 Apixaban [Eliquis] 2.5 mg PO BID 05/25/18 Aspirin 81 mg PO ASDIR 05/25/18 Atorvastatin Ca [Lipitor] 20 mg PO HS 05/25/18 Escitalopram Oxalate [Lexapro -] 20 mg PO DAILY 05/25/18 Famotidine 20 mg PO BID 05/25/18 Furosemide [Lasix] 20 mg PO DAILY 05/25/18 Insulin Glargine,Hum.rec.anlog [Basaglar Kwikpen U-100] 10 unit SQ HS 05/25/18 Isosorbide Mononitrate [Imdur -] 60 mg PO DAILY 05/25/18 Levothyroxine [Synthroid -] 50 mcg PO DAILY 05/25/18 Metoprolol Succinate 75 mg PO DAILY 05/25/18 Prandin - 2.5 mg PO TID 05/25/18 This patient is new to me today: Yes Date on this admission: 05/26/18 Emergency Visit: No Critical Care patient: No - Discharge Referral Referred to [facility] No
== END 2018-05-26 16:14 | disposition home or self-care (01) ==
LOC: JER 12:00 → SUPCPDRO 12:00 → JERBED 15:52 → J5S 20:25
PROVIDERS: ADMIT Internal Medicine; ATTEND Internal Medicine
DX: R04.0 Epistaxis (principal); D50.0 Iron deficiency anemia secondary to blood loss (chronic); I10 Essential (primary) hypertension; E78.5 Hyperlipidemia, unspecified; E11.9 Type 2 diabetes mellitus without complications; I25.10 Atherosclerotic heart disease of native coronary artery without angina pectoris; Z85.528 Personal history of other malignant neoplasm of kidney; Z79.01 Long term (current) use of anticoagulants; Z95.1 Presence of aortocoronary bypass graft; Z86.73 Personal history of transient ischemic attack (TIA), and cerebral infarction without residual deficits; Z90.5 Acquired absence of kidney; Z79.82 Long term (current) use of aspirin; Z79.84 Long term (current) use of oral hypoglycemic drugs; Z79.4 Long term (current) use of insulin
CPT/HCPCS: 36415; 36430; 80048; 82962; 83735; 84100; 84484; 85025; 85610; 85730; 86850; 86900; 86901; 86922; 93005; 93010; 99285-25; G0378; P9038; P9058

== ENCOUNTER 2018-12-01 23:06 | Emergency (ER) | payer OTHER, MEDICARE ==
[2018-12-01 23:19] VITALS: BP 109/71; PULSE 101; TEMP 98.2; BMI 26.4
--- NOTE | 2018-12-02 01:03 | PDOC ---
Attending Attestation - Resident Resident Name: Handy Nieto - ED Attending Attestation I have performed the following: I have examined & evaluated the patient, The case was reviewed & discussed with the resident, I agree w/resident's findings & plan - HPI HPI: 12/02/18 01:31 see resident hpi 12/02/18 01:33 - Physicial Exam PE: 12/02/18 01:33 agree with resident exam - Medical Decision Making 12/02/18 01:33 68 yo male with epistaxis from the right near nowspontaneously resolved Patient is currently on Eloquis and Brilinta He has declined draw for CBC stating he will be seeing his toilet attendant/ oncologist on Saturday and he feels fine He is aware that may have had significant blood loss requiring transfusions which he has had in the past and states he understands and will return if his condition worsens in any way He was also given instructions for direct pressure in the company of his , they're comfortable with the plan and will be discharged home
--- NOTE | 2018-12-02 01:31 | PDOC ---
History of Present Illness - General Chief Complaint: Nasal Bleeding Stated Complaint: NOSE BLEED Time Seen by Provider: 12/02/18 00:56 History Source: Patient Exam Limitations: No Limitations - History of Present Illness Initial Comments: 12/02/18 01:29 68M with a PMH of PMHx HTN, DM, HLD, stroke, CAD with 6 vessel bypass (12 yrs ago), metastatic renal Ca s/p L nephrectomy, who presents to the ER with complaints of a nose bleed. The patient states that he had an atraumatic nose bleed that started earlier in the afternoon and then progressed. He denies lightheadedness, CP, SOB, nausea, vomiting, fever, chills. He admits to a hx of epistaxis that have required cautery. He is on brilinta and eliquis. Past History - Past Medical History Allergies/Adverse Reactions: Allergies Allergy/AdvReac Type Severity Reaction Status Date / Time clopidogrel [From Plavix] Allergy Verified 05/25/18 12:10 Home Medications: Ambulatory Orders Amlodipine Besylate 2.5 mg PO DAILY 05/25/18 Apixaban [Eliquis] 2.5 mg PO BID 05/25/18 Aspirin 81 mg PO ASDIR 05/25/18 Atorvastatin Ca [Lipitor] 20 mg PO HS 05/25/18 Escitalopram Oxalate [Lexapro -] 20 mg PO DAILY 05/25/18 Famotidine 20 mg PO BID 05/25/18 Furosemide [Lasix] 20 mg PO DAILY 05/25/18 Insulin Glargine,Hum.rec.anlog [Basaglar Kwikpen U-100] 10 unit SQ HS 05/25/18 Isosorbide Mononitrate [Imdur -] 60 mg PO DAILY 05/25/18 Levothyroxine [Synthroid -] 50 mcg PO DAILY 05/25/18 Metoprolol Succinate 75 mg PO DAILY 05/25/18 Prandin - 2.5 mg PO TID 05/25/18 Cancer: Yes (KIDNEY) Cardiac Disorders: Yes (sextupil bypass 2001) CVA: Yes (2011) COPD: No Diabetes: Yes Disorders: Yes (left kidney removed 01/2017) HTN: Yes Hypercholesterolemia: Yes - Surgical History Cardiac Surgery: Yes - Immunization History Immunization Up to Date: Yes - Psycho Social/Smoking Cessation Hx Smoking History: Former smoker Have you smoked in the past 12 months: No Information on smoking cessation initiated: No Hx Alcohol Use: No Drug/Substance Use Hx: No Substance Use Type: None Review of Systems - Review of Systems Able to Perform ROS?: Yes Is the patient limited Frisian proficient: No Constitutional: No: Chills, Fever HEENTM: Yes: Nose Bleeding. No: Blurred Vision Respiratory: No: Cough, Shortness of Breath Cardiac (ROS): No: Chest Pain, Lightheadedness, Syncope ABD/GI: No: Nausea, Vomiting *Physical Exam - Vital Signs Last Vital Signs Temp Pulse Resp BP Pulse Ox 98.2 F 101 H 19 109/71 100 12/01/18 23:12/01/18 23:12/01/18 23:12/01/18 23:12/01/18 23:17 - Physical Exam General Appearance: Yes: Nourished, Appropriately Dressed. No: Apparent Distress HEENT: positive: Normal Voice, Other (Red blood in R nare; clear oropharynx) Cardiovascular: positive: Regular Rhythm, Regular Rate, S1, S2. negative: Diastolic Murmur, Systolic Murmur Gastrointestinal/Abdominal: positive: Flat, Soft. negative: Tender Medical Decision Making - Medical Decision Making 12/02/18 02:38 68M with MMP on carmita and luz who presents to the ER with resolved epistaxis. No running blood noted in nose or oropharynx. Pt instructed to d/w catalyst operator regarding resuming blood thinners. Pt agrees. Will d/c with PCP, ENT, and cards f/u. Discharge - Discharge Information Problems reviewed: Yes Clinical Impression/Diagnosis: Epistaxis not due to trauma Disposition: HOME - Admission No - Follow up/Referral - Patient Discharge Instructions Patient Printed Discharge Instructions: DI for Nosebleed Additional Instructions: Your ER visit is not complete until your follow up with your primary care physician. Please follow up with your primary care physician in 1-2 days. Please return to the ER if you have any signs or symptoms of chest pain, shortness of breath, uncontrollable fever, chills, nausea, vomiting, numbness, tingling, or weakness in any part of your body, changes in vision, or slurred speech. Please take your medications as prescribed BUT TALK TO YOUR AIRCRAFT SYSTEMS TECHNICIAN ABOUT THE BLOOD THINNERS. Please return to the ER if symptoms persist, worsen, or new symptoms arise. - Post Discharge Activity
== END 2018-12-02 02:02 | disposition home or self-care (01) ==
LOC: JER 23:06
DX: R04.0 Epistaxis (principal); I25.10 Atherosclerotic heart disease of native coronary artery without angina pectoris; I10 Essential (primary) hypertension; Z95.1 Presence of aortocoronary bypass graft; E78.00 Pure hypercholesterolemia, unspecified; Z11.9 Encounter for screening for infectious and parasitic diseases, unspecified; Z79.4 Long term (current) use of insulin; Z86.73 Personal history of transient ischemic attack (TIA), and cerebral infarction without residual deficits; Z79.01 Long term (current) use of anticoagulants; Z85.528 Personal history of other malignant neoplasm of kidney; Z90.5 Acquired absence of kidney; Z87.891 Personal history of nicotine dependence; Z88.8 Allergy status to other drugs, medicaments and biological substances
CPT/HCPCS: 99281-25

== ENCOUNTER 2018-12-07 16:49 | Emergency (ER) | payer OTHER, MEDICARE ==
[2018-12-07 16:56] VITALS: TEMP 98.7; BMI 26.4
--- NOTE | 2018-12-07 17:21 | PDOC ---
History of Present Illness - General Chief Complaint: Nasal Bleeding Stated Complaint: NOSE BLEED Time Seen by Provider: 12/07/18 17:19 History Source: Patient, Spouse - History of Present Illness Initial Comments: 12/07/18 17:48 Mr. Wang is a 68 y/o man with hx metastatic kidney cancer, HTN, HLD, CKD, DM, prior transfusion dependant blood loss anemia secondary to nosebleed, presenting with one day of nosebleed (on eliquis). He is accompanied by his spouse. She reports that last week he presented here for evaluation of a nosebleed, but that the nosebleed at the time was less heavy and resolved spontaneously without intervention. They followed up with his ENT this past Saturday who cauterized the location of the bleed. They report that the nosebleed began this morning, and that the bleeding was more brisk than the prior nosebleed this week. They report applying direct pressure on the R nare, and that the bleeding has continued. They report initially presenting at approx 1400 but that the bleeding stopped whiel they were pulling into the parking lot. They report that he sneezed, releasing a blood clot, and then the bleeding resumed so they returned for further evaluation. He denies any fevers, chills, weakness, lightheadedness, vertigo, confusion, palpitations, chest pain, shortness of breath. Past History - Past Medical History Allergies/Adverse Reactions: Allergies Allergy/AdvReac Type Severity Reaction Status Date / Time clopidogrel [From Plavix] Allergy Verified 12/07/18 16:55 Home Medications: Ambulatory Orders Amlodipine Besylate 2.5 mg PO DAILY 05/25/18 Apixaban [Eliquis] 2.5 mg PO BID 05/25/18 Aspirin 81 mg PO ASDIR 05/25/18 Atorvastatin Ca [Lipitor] 20 mg PO HS 05/25/18 Escitalopram Oxalate [Lexapro -] 20 mg PO DAILY 05/25/18 Famotidine 20 mg PO BID 05/25/18 Furosemide [Lasix] 20 mg PO DAILY 05/25/18 Insulin Glargine,Hum.rec.anlog [Basaglar Kwikpen U-100] 10 unit SQ HS 05/25/18 Isosorbide Mononitrate [Imdur -] 60 mg PO DAILY 05/25/18 Levothyroxine [Synthroid -] 50 mcg PO DAILY 05/25/18 Metoprolol Succinate 75 mg PO DAILY 05/25/18 Prandin - 2.5 mg PO TID 05/25/18 Cancer: Yes (KIDNEY) Cardiac Disorders: Yes (sextupil bypass 2001) CVA: Yes (2011) COPD: No Diabetes: Yes Disorders: Yes (left kidney removed 01/2017) HTN: Yes Hypercholesterolemia: Yes - Surgical History Cardiac Surgery: Yes - Immunization History Immunization Up to Date: Yes - Psycho Social/Smoking Cessation Hx Smoking History: Never smoked Have you smoked in the past 12 months: No Hx Alcohol Use: No Drug/Substance Use Hx: No Substance Use Type: None Review of Systems - Review of Systems Able to Perform ROS?: Yes Comments:: 12/07/18 19:32 ROS: GENERAL/CONSTITUTIONAL: No fever or chills. No weakness. HEAD, EYES, EARS, NOSE AND THROAT: Nosebleed. No change in vision. No ear pain or discharge. No sore throat. CARDIOVASCULAR: No chest pain or shortness of breath RESPIRATORY: No cough, wheezing, or hemoptysis. GASTROINTESTINAL: No nausea, vomiting, diarrhea or constipation. GENITOURINARY: No dysuria, frequency, or change in urination. MUSCULOSKELETAL: No joint or muscle swelling or pain. No neck or back pain. SKIN: No rash NEUROLOGIC: No headache, vertigo, loss of consciousness, or change in strength/ sensation. ENDOCRINE: No increased thirst. No abnormal weight change HEMATOLOGIC/LYMPHATIC: On eliquis. Prior blood transfusion. ALLERGIC/IMMUNOLOGIC: No hives or skin allergy. *Physical Exam - Vital Signs Last Vital Signs Temp Pulse Resp BP Pulse Ox 98.7 F 109 H 18 117/66 99 12/07/18 16:52 12/07/18 16:52 12/07/18 16:52 12/07/18 16:52 12/07/18 16:52 - Physical Exam Comments: 12/07/18 19:33 PE: GENERAL: Awake, alert, and fully oriented, in no acute distress HEAD: No signs of trauma, normocephalic, atraumatic EYES: PERRLA, EOMI, sclera anicteric, conjunctiva clear ENT: Brisk bleeding from R nare. Auricles normal inspection, hearing grossly normal, nares patent, oropharynx clear without exudates. Moist mucosa NECK: Normal ROM, supple, no lymphadenopathy, JVD, or masses LUNGS: No distress, speaks full sentences, clear to auscultation bilaterally HEART: Regular rate and rhythm, normal S1 and S2, no murmurs, rubs or gallops, peripheral pulses normal and equal bilaterally. ABDOMEN: Soft, nontender, normoactive bowel sounds. No guarding, no rebound. No masses EXTREMITIES : Normal inspection, Normal range of motion, no edema. No clubbing or cyanosis NEUROLOGICAL: Cranial nerves II through XII grossly intact. Normal speech, normal gait, no focal sensorimotor deficits SKIN: Warm, Dry, normal turgor, no rashes or lesions noted ED Treatment Course - LABORATORY CBC & Chemistry Diagram: 12/07/18 18:10 12/07/18 18:10 Medical Decision Making - Medical Decision Making 12/07/18 18:39 68M with hx Stage IV kidney CA, CKD, DM, HTN, HLD, prior transfusion dependent anemia secondary to nosebleeds, on eliquis p/w nosebleed after recent cauterization with ENT 4 days ago. Anterior nosebleed most likely source of bleed, worsened on eliquis. Given chronic conditions, prior transfusion dependent blood loss anemia, plan for labs as well as source control to r/o anemia. Plan: CBC CMP Cardiac profile PT/INR PTT Type and Screen TXA on 2x2 for bleeding control Nasal rocket if no source control Dispo: Likely discharge, ENT follow up 12/07/18 18:55 TXA soaked gauze placed at 1834. At 10 min reassessment, no active bleeding noted from R nare. Second TXA gauze placed, will reassess in 5 min. 12/07/18 19:28 Nasal bleeding still present on reassessment, albeit significantly more slowly. Will reassess, likely rhino rocket placement then discharge with ENT follow up. 12/07/18 19:53 4.5cm rhino rocket placed in R nare. Plan for discharge home with ENT follow up tomorrow. 12/07/18 20:03 Repeat HR - 77 Discharge - Discharge Information Problems reviewed: Yes Clinical Impression/Diagnosis: Nasal bleeding Condition: Stable Disposition: HOME - Admission No - Follow up/Referral - Patient Discharge Instructions Patient Printed Discharge Instructions: DI for Nosebleed Additional Instructions: You were seen in the emergency department for nosebleed. Your bloodwork was normal, and your hemoglobin was 9.7 today. We used Tranaxemic acid, which promotes blood coagulation, to slow down the bleeding, then placed a nasal rocket device in your nose to stop the bleeding. Please follow up with your ENT tomorrow. Return to the emergency department if you develop weakness, confusion , palpitations, chest pain, trouble breathing, or experience vision changes. - Post Discharge Activity
--- NOTE | 2018-12-07 17:36 | PDOC ---
Attending Attestation - Resident Resident Name: Otis Oneal - ED Attending Attestation I have performed the following: I have examined & evaluated the patient, The case was reviewed & discussed with the resident, I agree w/resident's findings & plan, Exceptions are as noted - HPI HPI: 12/07/18 17:35 This 68 yo male p/w nasal bleeding. He does have a history of epistaxes and is on Eliquis. He actually saw his ENT specialist on Saturday and at that time he had his left nares cauterized. 12/07/18 18:27 - Physicial Exam PE: 12/07/18 18:29 68 yo male p/e with left nares bleeding that is currently minimal head ncat nares left nares packed neck supple lungs cta b/l abd ontender skin warm and dry neuro axox3 - Medical Decision Making 12/07/18 18:31 will try TRANEXAMIC ACID for the bleeding , labs pending(h/o anemia) 12/07/18 19:09 labs reviewed and hbg=9.7 which is a good level for this pt pt can see his ENT tomorrow
[2018-12-07] MEDS ORDERED: TRANEXAMIC ACID 1000 MG/10 ML VIAL IVPUSH ONE (18:04)
[2018-12-07] MEDS ORDERED: TRANEXAMIC ACID 1000 MG/10 ML VIAL ONE (18:22)
[2018-12-07 18:49] LABS: BASO % 0.6 % (0-2.0); EOS % 1.8 % (0-4.5); HEMATOCRIT 31.2 % (35.4-49); HEMOGLOBIN 9.7 GM/dL (11.7-16.9); LYMPH % 20.5 % (8-40); MCH 26.6 pg (25.7-33.7); MEAN CELL VOLUME 85.7 fl (80-96); MONO % 11.3 % (3.8-10.2); NEUT % 65.8 % (42.8-82.8); PLATELET COUNT 261 K/MM3 (134-434); RBC 3.64 M/mm3 (4.00-5.60); RDW 19.3 % (11.9-15.9); WHITE BLOOD COUNT 5.9 K/mm3 (4.0-10.0)
[2018-12-07 18:58] LABS: INR 1.44 (0.83-1.09); PROTHROMBIN TIME (PATIENT) 17.1 SEC (9.7-13.0)
[2018-12-07 19:01] LABS: ACTIVATED PTT 31.6 SECONDS (25.2-36.5)
[2018-12-07 19:19] LABS: ALBUMIN 3.4 g/dl (3.4-5.0); ALK PHOS 105 U/L (45-117); ANION GAP 8 MMOL/L (8-16); BILIRUBIN,TOTAL 0.5 mg/dL (0.2-1); BLOOD UREA NITROGEN 37.2 mg/dL (7-18); CALCIUM 8.8 mg/dL (8.5-10.1); CHLORIDE 106 mmol/L (98-107); CO2 26 mmol/L (21-32); CREATININE 1.5 mg/dL (0.55-1.3); GLUCOSE,RANDOM 105 mg/dL (74-106); POTASSIUM 4.5 mmol/L (3.5-5.1); SGOT/AST 24 U/L (15-37); SGPT/ALT 39 U/L (13-61); SODIUM 139 mmol/L (136-145); TOT PROT 7.8 g/dl (6.4-8.2)
[2018-12-07 20:21] VITALS: BP 123/71; PULSE 88
== END 2018-12-07 20:19 | disposition home or self-care (01) ==
LOC: JER 16:49
PROC: 093K7ZZ Control Bleeding in Nasal Mucosa and Soft Tissue, Via Natural or Artificial Opening (ICD-10-PCS; principal; 2018-12-07)
PROC: 3E033GC Introduction of Other Therapeutic Substance into Peripheral Vein, Percutaneous Approach (ICD-10-PCS; 2018-12-07)
DX: R04.0 Epistaxis (principal); I25.10 Atherosclerotic heart disease of native coronary artery without angina pectoris; I12.9 Hypertensive chronic kidney disease with stage 1 through stage 4 chronic kidney disease, or unspecified chronic kidney disease; E11.22 Type 2 diabetes mellitus with diabetic chronic kidney disease; N18.9 Chronic kidney disease, unspecified; Z79.4 Long term (current) use of insulin; E78.00 Pure hypercholesterolemia, unspecified; Z86.73 Personal history of transient ischemic attack (TIA), and cerebral infarction without residual deficits; Z85.528 Personal history of other malignant neoplasm of kidney; Z79.01 Long term (current) use of anticoagulants; Z79.82 Long term (current) use of aspirin; Z88.8 Allergy status to other drugs, medicaments and biological substances; Z95.1 Presence of aortocoronary bypass graft
CPT/HCPCS: 30901-25; 36415; 80053; 82550; 84484; 85025; 85610; 85730; 86850; 86900; 86901; 96374; 99283-25